=== PATIENT | male | born 1955 | race Caucasian/White ===

== ENCOUNTER → 2017-10-04 11:03 | Outpatient (CLI) | payer MEDICAID, SELFPAY ==
--- NOTE | 2017-10-04 11:13 | XR_ITS ---
XR shoulder RT min 2V HISTORY: ITS.REASON: ACUTE RT SHOULDER PAIN ORDERING PHYSICIAN: Sathish Hassan MD PATIENT AGE: 62 years COMPARISON: 02/26/2014 FINDINGS: No fracture or dislocation. No lytic or blastic change. There is normal mineralization. The joint spaces are well-preserved. No significant degenerative/arthritic changes. No erosive changes evident. IMPRESSION: Negative, no acute finding
--- NOTE | 2017-10-04 11:13 | XR_ITS ---
XR wrist LT min 3V HISTORY pain and immobility ITS.REASON: LT WRIST PAIN ORDERING PHYSICIAN: Sathish Hassan MD PATIENT AGE: 62 years COMPARISON: None FINDINGS: There are mild osteoarthritic changes of the radiocarpal joint and distal radial ulnar joint as well as the first metacarpal carpal joint.. There is mild prominence of the scapholunate space which may be seen with scapholunate ligamentous injury. Mild hypertrophic changes involving and stress SPECT of the distal radius. No fracture or dislocation. No lytic or blastic change. IMPRESSION: 1. Mild osteoarthritic change. 2. Possible scapholunate ligament injury with mild prominence of the scapholunate space. This may be confirmed with MRI clinically warranted.
== END ==
PROVIDERS: PCP Family Medicine; Visit Provider Family Medicine
DX: M25.511 Pain in right shoulder (principal); M25.532 Pain in left wrist
CPT/HCPCS: 73030; 73110

== ENCOUNTER → 2017-11-19 10:46 | Outpatient (CLI) | payer MEDICAID, SELFPAY | PROVIDERS: Family Provider Family Medicine; PCP Family Medicine; Visit Provider Family Medicine | DX: M25.532 Pain in left wrist (principal) ==

== ENCOUNTER → 2017-11-27 09:57 | Outpatient (POV) | payer MEDICAID, SELFPAY ==
[2017-11-27 10:10] VITALS: BP 174/99; PULSE 94; RESP 18; O2SAT 98
--- NOTE | 2017-11-27 12:59 | HMH.PMCON ---
Assessment and Plan (1) Degenerative disc disease, lumbar Current visit: Yes Status: Chronic Category: Medical Code(s): M51.36 - Other intervertebral disc degeneration, lumbar region (2) Lumbar radiculopathy Current visit: Yes Status: Chronic Category: Medical Code(s): M54.16 - Radiculopathy, lumbar region (3) Postlaminectomy syndrome Current visit: Yes Status: Chronic Category: Medical Code(s): M96.1 - Postlaminectomy syndrome, not elsewhere classified - Assessment and plan all Dx Assessment and Plan for all problems:: We will schedule L4-L5 lumbar epidural steroid injection for the patient. After this we will order him physical therapy. We will refill the patient's tramadol 50 mg 1 p.o. 4 times daily. We will give him 1 refill. Patient's CODY #[id number] reviewed and appropriate. We will drug screen the patient at his next follow-up. Patient's tried and failed anti-inflammatories, medications, physical therapy in the past. I will follow-up with this patient after his injection. Patient is not on any anticoagulation therapy. This note was dictated using voice recognition software and may contain errors or omissions HPI - Data of Consult Consult date: 11/27/17 Requesting Physician: Keesha Key APRN Primary Care Provider: Sathish Hassan MD Family Provider: Sathish Hassan MD - Consult Narrative Reason for consult: chronic low back History of present illness: Mr. Velásquez is a 62 year old male who who presents today for consultation in regards to his low back pain. Patient had spinal fusion back in 2002. Patient states his current pain is 3 out of 10. Patient states that when he does too much it does elevate. Patient is currently being medically managed with tramadol and doing well with it. Patient states his primary care can no longer take this medication over. Patient is here to discuss injective therapy and the continuation of his tramadol. Patient would also like to talk about physical therapy. Patient has done this in the past however he has not done it recently. Patient is interested in getting involved in physical therapy in conjunction with epidural injections. Patient states his pain is mainly in his low back and goes down both legs worse on the right side. Patient does have an MRI showing pathology in the lower lumbar spine. CC: Keesha Key APRN [facility] History I have reviewed the patient's past medical history: Yes Other Medical History: Reports: Arthritis Other Surgeries: Yes: Appendectomy - *Social History Alcohol Intake: never Occupational Status: retired - Psychiatric History Expresses thoughts of harming self/others: None Suicide Plan Description: No Plan *Family Hx:: Adopted Review of Systems - Review of Systems ROS General: no recent weight change, no fever, no sleep disturbances Respiratory: no cough, no shortness of air, no recurring pulmonary infections Cardiovascular/Peripheral Vascular: No chest pain, No palpitations, no edema, no shortness of breath. Gastrointestinal: no incontinence, normal bowel movements reported Genitourinary: no incontinence Musculoskeletal: Low back pain, leg pain Psychiatric: normal mood/ affect, Neurological: [denies weakness in extremities], [denies balance issues] Meds Home Medications Medication Instructions Recorded Confirmed Type Duloxetine HCl 120 mg PO DAILY 11/27/17 11/27/17 History Fluticasone/Vilanterol [Breo 1 each IH DAILY 11/27/17 11/27/17 History Ellipta 100-25 Mcg INH] Tramadol HCl [Ultram Take Home 50 mg PO QID 11/27/17 11/27/17 History Pack 50mg (10)] Allergies Allergy/AdvReac Type Severity Reaction Status Date / Time NKDA - NO KNOWN DRUG Allergy Unknown Uncoded 06/05/17 15:24 ALLERGIES Objective Vital signs: Pulse Resp BP Pulse Ox 94 H 18 174/99 98 11/27/17 10:10 11/27/17 10:10 11/27/17 10:10 11/27/17 10:10 Narrative:
--- NOTE | 2017-11-27 13:05 | P.CONS_ITS ---
Assessment and Plan (1) Degenerative disc disease, lumbar Current visit: Yes Status: Chronic Category: Medical Code(s): M51.36 - Other intervertebral disc degeneration, lumbar region (2) Lumbar radiculopathy Current visit: Yes Status: Chronic Category: Medical Code(s): M54.16 - Radiculopathy, lumbar region (3) Postlaminectomy syndrome Current visit: Yes Status: Chronic Category: Medical Code(s): M96.1 - Postlaminectomy syndrome, not elsewhere classified - Assessment and plan all Dx Assessment and Plan for all problems:: We will schedule L4-L5 lumbar epidural steroid injection for the patient. After this we will order him physical therapy. We will refill the patient's tramadol 50 mg 1 p.o. 4 times daily. We will give him 1 refill. Patient's CODY #[id number] reviewed and appropriate. We will drug screen the patient at his next follow-up. Patient's tried and failed anti-inflammatories, medications , physical therapy in the past. I will follow-up with this patient after his injection. Patient is not on any anticoagulation therapy. This note was dictated using voice recognition software and may contain errors or omissions HPI - Data of Consult Consult date: 11/27/17 Requesting Physician: Keesha Key APRN Primary Care Provider: Sathish Hassan MD Family Provider: Sathish Hassan MD - Consult Narrative Reason for consult: chronic low back History of present illness: Mr. Velásquez is a 62 year old male who who presents today for consultation in regards to his low back pain. Patient had spinal fusion back in 2002. Patient states his current pain is 3 out of 10. Patient states that when he does too much it does elevate. Patient is currently being medically managed with tramadol and doing well with it. Patient states his primary care can no longer take this medication over. Patient is here to discuss injective therapy and the continuation of his tramadol. Patient would also like to talk about physical therapy. Patient has done this in the past however he has not done it recently. Patient is interested in getting involved in physical therapy in conjunction with epidural injections. Patient states his pain is mainly in his low back and goes down both legs worse on the right side. Patient does have an MRI showing pathology in the lower lumbar spine. CC: Keesha Key APRN [facility] History I have reviewed the patient's past medical history: Yes Other Medical History: Reports: Arthritis Other Surgeries: Yes: Appendectomy - *Social History Alcohol Intake: never Occupational Status: retired - Psychiatric History Expresses thoughts of harming self/others: None Suicide Plan Description: No Plan *Family Hx:: Adopted Review of Systems - Review of Systems ROS General: no recent weight change, no fever, no sleep disturbances Respiratory: no cough, no shortness of air, no recurring pulmonary infections Cardiovascular/Peripheral Vascular: No chest pain, No palpitations, no edema, no shortness of breath. Gastrointestinal: no incontinence, normal bowel movements reported Genitourinary: no incontinence Musculoskeletal: Low back pain, leg pain Psychiatric: normal mood/ affect, Neurological: [denies weakness in extremities], [denies balance issues] Meds Home Medications Medication Instructions Recorded Confirmed Type Duloxetine HCl 120 mg PO DAILY 11/27/17 11/27/17 History Fluticasone/Vilanterol [Breo 1 each IH DAILY 11/27/17 11/27/17 History
== END ==
PROVIDERS: Family Provider Family Medicine; PCP Family Medicine; Visit Provider Clinical Nurse Specialist Family Health
DX: M51.36 Other intervertebral disc degeneration, lumbar region (principal); M54.16 Radiculopathy, lumbar region; M96.1 Postlaminectomy syndrome, not elsewhere classified
CPT/HCPCS: 99202

== ENCOUNTER → 2017-11-27 12:46 | Outpatient (CLI) | payer MEDICAID, SELFPAY ==
--- NOTE | 2017-11-27 12:48 | MR_ITS ---
MR wrist LT wo con HISTORY left wrist pain, scapholunate disassociation ITS.REASON: LEFT WRIST PAIN, DIASTASIS OF SCAPHOLUNATE JOINT, LEFT, INIT ORDERING PHYSICIAN: Sathish Hassan MD PATIENT AGE: 62 years Comparison: None TECHNIQUE: Multiplanar multiecho sequences are performed without contrast. There is moderate degree of patient motion artifact which does decrease the sensitivity of the exam. FINDINGS: There is diffuse motion artifact which obscures fine detail despite repeating multiple sequences. Scapholunate ligament would not not reliably be seen with this degree of motion. Therefore, cannot confirm the absence or presence of ligamentous tear. There is widening of the scapholunate space which would suggest scapholunate ligament instability/tear. There are subarticular cystic changes at the distal aspect of the radius at the radial ulnar joint subchondral cystic changes are present also at the proximal aspect of the lunate and the scaphoid. No acute fracture is apparent. No obvious soft tissue mass IMPRESSION: 1. There is widening of the scapholunate space. The scapholunate ligament is not demonstrated however it is uncertain whether this is due to a tear or due to the motion artifact. 2. There are osteoarthritic changes at the radiocarpal joint with subarticular cystic changes at the distal radius, proximal scaphoid, and proximal lunate
== END ==
PROVIDERS: Family Provider Family Medicine; PCP Family Medicine; Visit Provider Family Medicine
DX: S63.095A Other dislocation of left wrist and hand, initial encounter (principal); M25.532 Pain in left wrist
CPT/HCPCS: 73221

== ENCOUNTER → 2018-01-07 10:32 | Outpatient (POV) | payer MEDICAID, SELFPAY ==
[2018-01-07 10:50] VITALS: BP 157/101; PULSE 101; RESP 18; O2SAT 98; BMI 32.5
--- NOTE | 2018-01-07 10:51 | HMH.PAINSOAP ---
[facility] Pain Management SOAP Note Subjective:: Patient is a pleasant 63-year-old white male who presents today for follow-up after most recent lumbar epidural steroid injection. Patient states that he had complete relief after his injection he states that he does have a little bit of increased pain now with activity. Patient has had a previous spinal fusion back in 2002. Patient states that he does have some radicular symptoms in both legs however his right is greater. Patient had relief of this with the injection as well. Patient would like to complete the series of 3 epidural steroid injections and I believe that that would be beneficial. Patient's tried physical therapy along with stretching therapies. Patient utilizes anti-inflammatories to help alleviate some of his pain. ROS General: no recent weight change, no fever, no sleep disturbances Respiratory: no cough, no shortness of air, no recurring pulmonary infections Cardiovascular/Peripheral Vascular: No chest pain, No palpitations, no edema, no shortness of breath. Gastrointestinal: no incontinence, normal bowel movements reported Genitourinary: no incontinence Musculoskeletal: Back pain Psychiatric: normal mood/ affect Neurological: [denies weakness in extremities], [denies balance issues] Objective:: Physical Exam General: Alert and oriented x3, no acute distress, pleasant and cooperative, [on room air] Lungs: Resps E/U, Symmetrical chest expansion Eyes: PERRL Musculoskeletal: Flexion and extension of lumbar spine somewhat guarded secondary to pain, deep tendon reflexes normal, strength in upper and lower extremities [5/5], [abnormal gait noted] patient has a positive straight leg raise test bilaterally at 30?. Neurological: speech clear, junior project coordinator equal, no gross sensory deficits Assessment:: Degenerative disc disease of the lumbar spine with lumbar radiculopathy symptoms and postlaminectomy syndrome of the lumbar spine Plan:: We will schedule another L4 L5 lumbar epidural steroid injection given the efficacy of this last one. I will follow-up with the patient after his injection. Patient is not on any anticoagulation therapy. This note was dictated using voice recognition software and may contain errors or omissions
--- NOTE | 2018-01-07 10:54 | P.CONS_ITS ---
[facility] Pain Management SOAP Note Subjective:: Patient is a pleasant 63-year-old white male who presents today for follow-up after most recent lumbar epidural steroid injection. Patient states that he had complete relief after his injection he states that he does have a little bit of increased pain now with activity. Patient has had a previous spinal fusion back in 2002. Patient states that he does have some radicular symptoms in both legs however his right is greater. Patient had relief of this with the injection as well. Patient would like to complete the series of 3 epidural steroid injections and I believe that that would be beneficial. Patient's tried physical therapy along with stretching therapies. Patient utilizes anti- inflammatories to help alleviate some of his pain. ROS General: no recent weight change, no fever, no sleep disturbances Respiratory: no cough, no shortness of air, no recurring pulmonary infections Cardiovascular/Peripheral Vascular: No chest pain, No palpitations, no edema, no shortness of breath. Gastrointestinal: no incontinence, normal bowel movements reported Genitourinary: no incontinence Musculoskeletal: Back pain Psychiatric: normal mood/ affect Neurological: [denies weakness in extremities], [denies balance issues] Objective:: Physical Exam General: Alert and oriented x3, no acute distress, pleasant and cooperative, [ on room air] Lungs: Resps E/U, Symmetrical chest expansion Eyes: PERRL Musculoskeletal: Flexion and extension of lumbar spine somewhat guarded secondary to pain, deep tendon reflexes normal, strength in upper and lower extremities [5/5], [abnormal gait noted] patient has a positive straight leg raise test bilaterally at 30?. Neurological: speech clear, flat folding machine operator equal, no gross sensory deficits Assessment:: Degenerative disc disease of the lumbar spine with lumbar radiculopathy symptoms and postlaminectomy syndrome of the lumbar spine Plan:: We will schedule another L4 L5 lumbar epidural steroid injection given the efficacy of this last one. I will follow-up with the patient after his injection. Patient is not on any anticoagulation therapy. This note was dictated using voice recognition software and may contain errors or omissions
== END ==
PROVIDERS: Family Provider Family Medicine; PCP Family Medicine; Visit Provider Clinical Nurse Specialist Family Health
DX: M54.16 Radiculopathy, lumbar region (principal)
CPT/HCPCS: 99212

== ENCOUNTER → 2018-03-04 15:08 | Outpatient (POV) | payer MEDICARE, SELFPAY ==
--- NOTE | 2018-03-04 15:52 | HMH.PAINSOAP ---
[facility] Pain Management SOAP Note Subjective:: Patient is a pleasant 63-year-old white male who presents today for follow-up after his second lumbar epidural steroid injection. Patient has had 1 injection with very good relief. Patient states he did not have as much relief on his second injection. Patient did however does have a lot of dental work done where he received 12 Percocet. Patient had several teeth pulled and dentures made. Patient's currently on tramadol 50 mg 1 p.o. 4 times daily. Patient's CODY #[id number]. Patient and I discussed adding gabapentin due to the increased leg pain. Patient is having low back pain and bilateral leg pain. he rates his pain a 5 out of 10 today ROS General: no recent weight change, no fever, no sleep disturbances Respiratory: no cough, no shortness of air, no recurring pulmonary infections Cardiovascular/Peripheral Vascular: No chest pain, No palpitations, no edema, no shortness of breath. Gastrointestinal: no incontinence, normal bowel movements reported Genitourinary: no incontinence Musculoskeletal: Back pain Psychiatric: normal mood/ affect Neurological: [denies weakness in extremities], [denies balance issues] Objective:: Physical Exam General: Alert and oriented x3, no acute distress, pleasant and cooperative, [on room air] Lungs: Resps E/U, Symmetrical chest expansion, Eyes: PERRL Musculoskeletal: Flexion and extension of lumbar spine somewhat guarded secondary to pain, deep tendon reflexes normal, strength in upper and lower extremities [5/5], slightly antalgic gait noted, straight leg raise test bilaterally at 30? Neurological: speech clear, pastry baker equal, no gross sensory deficits Assessment:: degenerative disc disease lumbar spine with lumbar radiculopathy Plan:: We will schedule a third L4-L5 lumbar epidural steroid injection for the patient. We will also add gabapentin 100 mg at bedtime. Patient is to continue his tramadol 50 mg [address] p[address] Peguero is reviewed this chart and agrees with this plan of care. I will follow-up with the patient after his injection. This note was dictated using voice recognition software and may contain errors or omissions
--- NOTE | 2018-03-04 15:55 | P.CONS_ITS ---
[facility] Pain Management SOAP Note Subjective:: Patient is a pleasant 63-year-old white male who presents today for follow-up after his second lumbar epidural steroid injection. Patient has had 1 injection with very good relief. Patient states he did not have as much relief on his second injection. Patient did however does have a lot of dental work done where he received 12 Percocet. Patient had several teeth pulled and dentures made. Patient's currently on tramadol 50 mg 1 p.o. 4 times daily. Patient's CODY #[id number]. Patient and I discussed adding gabapentin due to the increased leg pain. Patient is having low back pain and bilateral leg pain. he rates his pain a 5 out of 10 today ROS General: no recent weight change, no fever, no sleep disturbances Respiratory: no cough, no shortness of air, no recurring pulmonary infections Cardiovascular/Peripheral Vascular: No chest pain, No palpitations, no edema, no shortness of breath. Gastrointestinal: no incontinence, normal bowel movements reported Genitourinary: no incontinence Musculoskeletal: Back pain Psychiatric: normal mood/ affect Neurological: [denies weakness in extremities], [denies balance issues] Objective:: Physical Exam General: Alert and oriented x3, no acute distress, pleasant and cooperative, [on room air] Lungs: Resps E/U, Symmetrical chest expansion, Eyes: PERRL Musculoskeletal: Flexion and extension of lumbar spine somewhat guarded secondary to pain, deep tendon reflexes normal, strength in upper and lower extremities [5/5], slightly antalgic gait noted, straight leg raise test bilaterally at 30? Neurological: speech clear, director university equal, no gross sensory deficits Assessment:: degenerative disc disease lumbar spine with lumbar radiculopathy Plan:: We will schedule a third L4-L5 lumbar epidural steroid injection for the patient. We will also add gabapentin 100 mg at bedtime. Patient is to continue his tramadol 50 mg [address] Peguero is reviewed this chart and agrees with this plan of care. I will follow-up with the patient after his injection. This note was dictated using voice recognition software and may contain errors or omissions
== END ==
PROVIDERS: Family Provider Family Medicine; PCP Family Medicine; Visit Provider Clinical Nurse Specialist Family Health
DX: M51.16 Intervertebral disc disorders with radiculopathy, lumbar region (principal)
CPT/HCPCS: 99213

== ENCOUNTER → 2018-04-23 14:51 | Outpatient (POV) | payer MEDICARE, MEDICAID, SELFPAY ==
[2018-04-23 15:02] VITALS: BP 151/97; PULSE 103; RESP 18; O2SAT 98; BMI 31.9
--- NOTE | 2018-04-23 15:19 | HMH.PAINSOAP ---
[facility] Pain Management SOAP Note Subjective:: Patient is a pleasant 63-year-old white male who presents today for follow-up. Patient following up after his last lumbar epidural steroid injection. Patient did not have as much relief with this injection. Patient states that his back pain is radiating all into his right leg. Patient and I discussed transforaminal injections and he is interested in pursuing this. Patient is currently on tramadol 2 tabs 50 mg twice daily. Patient states that sometimes he would like to have one more. Patient is trying to stay active he is still doing a home stretching regimen. Patient is not on any anticoagulation therapy. Patient is on anti-inflammatories. ROS General: no recent weight change, no fever, no sleep disturbances Respiratory: no cough, no shortness of air, no recurring pulmonary infections Cardiovascular/Peripheral Vascular: No chest pain, No palpitations, no edema, no shortness of breath. Gastrointestinal: no incontinence, normal bowel movements reported Genitourinary: no incontinence Musculoskeletal: Back pain, right leg pain Psychiatric: normal mood/ affect Neurological: [denies weakness in extremities], [denies balance issues] Objective:: Physical Exam General: Alert and oriented x3, no acute distress, pleasant and cooperative, [on room air] Lungs: Resps E/U, Symmetrical chest expansion, Eyes: PERRL Musculoskeletal: Flexion and extension of lumbar spine somewhat guarded secondary to pain, deep tendon reflexes normal, strength in upper and lower extremities [5/5], [abnormal gait noted] Neurological: speech clear, radar engineer equal, no gross sensory deficits Assessment:: Degenerative disc disease of the lumbar spine with lumbar radiculopathy Plan:: We will schedule a L4-L5 right transforaminal epidural steroid injection for the patient. We will increase his tramadol to 50 mg 2 tabs p.o. 3 times daily. We will follow-up with him after his injection. This note was dictated using voice recognition software and may contain errors or omissions
--- NOTE | 2018-04-23 15:22 | P.CONS_ITS ---
[facility] Pain Management SOAP Note Subjective:: Patient is a pleasant 63-year-old white male who presents today for follow-up. Patient following up after his last lumbar epidural steroid injection. Patient did not have as much relief with this injection. Patient states that his back pain is radiating all into his right leg. Patient and I discussed transforaminal injections and he is interested in pursuing this. Patient is currently on tramadol 2 tabs 50 mg twice daily. Patient states that sometimes he would like to have one more. Patient is trying to stay active he is still doing a home stretching regimen. Patient is not on any anticoagulation therapy. Patient is on anti-inflammatories. ROS General: no recent weight change, no fever, no sleep disturbances Respiratory: no cough, no shortness of air, no recurring pulmonary infections Cardiovascular/Peripheral Vascular: No chest pain, No palpitations, no edema, no shortness of breath. Gastrointestinal: no incontinence, normal bowel movements reported Genitourinary: no incontinence Musculoskeletal: Back pain, right leg pain Psychiatric: normal mood/ affect Neurological: [denies weakness in extremities], [denies balance issues] Objective:: Physical Exam General: Alert and oriented x3, no acute distress, pleasant and cooperative, [on room air] Lungs: Resps E/U, Symmetrical chest expansion, Eyes: PERRL Musculoskeletal: Flexion and extension of lumbar spine somewhat guarded secondary to pain, deep tendon reflexes normal, strength in upper and lower extremities [5/5], [abnormal gait noted] Neurological: speech clear, career development specialist equal, no gross sensory deficits Assessment:: Degenerative disc disease of the lumbar spine with lumbar radiculopathy Plan:: We will schedule a L4-L5 right transforaminal epidural steroid injection for the patient. We will increase his tramadol to 50 mg 2 tabs p.o. 3 times daily. We will follow-up with him after his injection. This note was dictated using voice recognition software and may contain errors or omissions
== END ==
PROVIDERS: PCP Registered Nurse; Visit Provider Clinical Nurse Specialist Family Health
DX: M51.16 Intervertebral disc disorders with radiculopathy, lumbar region (principal)
CPT/HCPCS: 99213

== ENCOUNTER → 2018-06-17 14:08 | Outpatient (POV) | payer MEDICARE, MEDICAID, SELFPAY ==
--- NOTE | 2018-06-17 14:29 | HMH.PAINSOAP ---
[facility] Pain Management SOAP Note Subjective:: Is a pleasant 63-year-old white male who resents today for follow-up after transforaminal epidural steroid injection. Patient states that he is doing extremely well rating his pain a 2 out of 10 today. Patient is doing well on his tramadol as well he is not in need of refills today. ROS General: no recent weight change, no fever, no sleep disturbances Respiratory: no cough, no shortness of air, no recurring pulmonary infections Cardiovascular/Peripheral Vascular: No chest pain, No palpitations, no edema, no shortness of breath. Gastrointestinal: no incontinence, normal bowel movements reported Genitourinary: no incontinence Musculoskeletal: Back pain, leg pain Psychiatric: normal mood/ affect Neurological: [denies weakness in extremities], [denies balance issues] Objective:: Physical Exam General: Alert and oriented x3, no acute distress, pleasant and cooperative, [on room air] Lungs: Resps E/U, Symmetrical chest expansion, Eyes: PERRL Musculoskeletal: Flexion and extension of lumbar spine somewhat guarded secondary to pain, deep tendon reflexes normal, strength in upper and lower extremities [5/5], slightly antalgic gait noted Neurological: speech clear, slip cover seamstress equal, no gross sensory deficits Assessment:: Degenerative disc disease lumbar spine with lumbar radiculopathy Plan:: We will follow-up with the patient in 2 months and reassess his symptoms at that time. Patient is otherwise doing well at this time. Patient's been instructed to call the office if he needs anything prior to his next visit. This note was dictated using voice recognition software and may contain errors or omissions
[2018-06-17 14:35] VITALS: BP 141/86; PULSE 93; RESP 18; O2SAT 98; BMI 32.6
== END ==
PROVIDERS: PCP Family Medicine; Visit Provider Clinical Nurse Specialist Family Health
DX: M51.16 Intervertebral disc disorders with radiculopathy, lumbar region (principal)
CPT/HCPCS: 99213

== ENCOUNTER → 2018-10-10 10:01 | Outpatient (CLI) | payer MEDICARE, MEDICAID, SELFPAY ==
--- NOTE | 2018-10-10 10:11 | XR_ITS ---
XR wrist LT min 3V HISTORY ITS.REASON: left side wrist pain ORDERING PHYSICIAN: Georgina Calvin MD PATIENT AGE: 63 years Comparison: 10/04/2017 FINDINGS: There are mild osteoarthritic changes of the first metacarpal carpal joint and the radiocarpal joint as well as the distal radioulnar joint. There is mild widening of the scapholunate space as previously described. Minimal subarticular cystic changes are present involving the distal radius medially No fracture or dislocation evident. No significant change from the previous exam. IMPRESSION: No change mild osteoarthritic changes of the wrist with mild prominence of the scapholunate space
== END ==
PROVIDERS: PCP Family Medicine; Visit Provider Orthopaedic Surgery
DX: M25.532 Pain in left wrist (principal)
CPT/HCPCS: 73110

== ENCOUNTER → 2018-10-14 14:03 | Outpatient (POV) | payer MEDICARE, MEDICAID, SELFPAY ==
[2018-10-14 14:30] VITALS: BP 158/82; PULSE 100; RESP 18; O2SAT 98; BMI 31.0
--- NOTE | 2018-10-15 08:28 | HMH.PAINSOAP ---
[facility] Pain Management SOAP Note Subjective:: Is a pleasant 63-year-old white male who presents today for follow-up. Patient is doing well rating his pain a 2 out of 10. He still taking tramadol 50 mg 2 tabs 3 times daily. He denies side effects. Overall doing well. Patient would like to just continue to follow-up as needed. ROS General: no recent weight change, no fever, no sleep disturbances Respiratory: no cough, no shortness of air, no recurring pulmonary infections Cardiovascular/Peripheral Vascular: No chest pain, No palpitations, no edema, no shortness of breath. Gastrointestinal: no incontinence, normal bowel movements reported Genitourinary: no incontinence Musculoskeletal: Back pain, leg pain Psychiatric: normal mood/ affect Neurological: [denies weakness in extremities], [denies balance issues] Objective:: Physical Exam General: Alert and oriented x3, no acute distress, pleasant and cooperative, [on room air] Lungs: Resps E/U, Symmetrical chest expansion, Eyes: PERRL Musculoskeletal: Flexion and extension of lumbar spine somewhat guarded secondary to pain, deep tendon reflexes normal, strength in upper and lower extremities [5/5], [abnormal gait noted] Neurological: speech clear, color television console monitor equal, no gross sensory deficits Assessment:: Degenerative disc disease lumbar spine with lumbar radiculopathy Plan:: Follow-up with the patient to 3 months reassess his symptoms at that time. He has been instructed to call the office if he has any issues prior to his next appointment. Dr. Peguero has reviewed this note and agrees with this plan of care. This note was dictated using voice recognition software and may contain errors or omissions
== END ==
PROVIDERS: PCP Family Medicine; Visit Provider Clinical Nurse Specialist Family Health
DX: M51.16 Intervertebral disc disorders with radiculopathy, lumbar region (principal)
CPT/HCPCS: 99212

== ENCOUNTER 2018-10-14 14:08 | Outpatient (RCR) | payer MEDICARE, MEDICAID, SELFPAY | END 2018-10-14 14:10 | disposition home or self-care (01) | LOC: OT 14:08 | PROVIDERS: Visit Provider Orthopaedic Surgery | DX: M25.532 Pain in left wrist (principal) | CPT/HCPCS: 97763 ==

== ENCOUNTER → 2019-01-13 13:48 | Outpatient (POV) | payer MEDICARE, MEDICAID, SELFPAY ==
[2019-01-13 13:54] VITALS: BP 146/97; PULSE 87; RESP 20; O2SAT 96; BMI 30.4
--- NOTE | 2019-01-13 14:04 | P.CONS_ITS ---
[facility] Pain Management SOAP Note Subjective:: Patient is a pleasant 64-year-old white male who presents today for follow-up. Patient is currently on tramadol 50 mg 1 p.o. 6 times a day and Lyrica 75 mill grams 1 p.o. twice daily. Patient is having right SI joint pain. Patient has had that for quite some time. He had a right SI joint injection about 6 months and has done extremely well with that he rates his pain today a 7 out of 10. He denies side effects his tramadol or his Lyrica. [facility] #[id number] reviewed and appropriate. We had a discussion today in regards to decreasing his tramadol increasing his Lyrica. I believe it would be beneficial. ROS General: no recent weight change, no fever, no sleep disturbances Respiratory: no cough, no shortness of air, no recurring pulmonary infections Cardiovascular/Peripheral Vascular: No chest pain, No palpitations, no edema, no shortness of breath. Gastrointestinal: no incontinence, normal bowel movements reported Genitourinary: no incontinence Musculoskeletal: Back pain, right SI joint pain Psychiatric: normal mood/ affect Neurological: [denies weakness in extremities], [denies balance issues] Objective:: Physical Exam General: Alert and oriented x3, no acute distress, pleasant and cooperative, [on room air] Lungs: Resps E/U, Symmetrical chest expansion, Eyes: PERRL Musculoskeletal: Flexion and extension of lumbar spine somewhat guarded secondary to pain, deep tendon reflexes normal, strength in upper and lower extremities [5/5], slightly antalgic gait noted, positive SI joint compression test positive Raquel test positive Wero's test on the right SI joint. Neurological: speech clear, certified nurse practitioner equal, no gross sensory deficits Assessment:: Degenerative disc disease lumbar spine with lumbar radiculopathy along with sacroiliitis Plan:: We will decrease his tramadol to 50 mg 1 tab p.o. 4 times daily and increase his Lyrica to 150 mg 1 p.o. twice daily. We will also schedule him for right SI joint injection. He is continuing anti-inflammatories and a home stretching program. He is been instructed to call the office if he has any issues prior to his next appointment. Dr. Peguero has reviewed this note and agrees with this plan of care. This note was dictated using voice recognition software and may contain errors or omissions
== END ==
PROVIDERS: PCP Family Medicine; Visit Provider Clinical Nurse Specialist Family Health
DX: M51.16 Intervertebral disc disorders with radiculopathy, lumbar region (principal); M46.1 Sacroiliitis, not elsewhere classified
CPT/HCPCS: 99212

== ENCOUNTER → 2019-03-18 09:28 | Outpatient (POV) | payer MEDICARE, MEDICAID, SELFPAY ==
[2019-03-18 09:52] VITALS: BP 133/88; PULSE 89; RESP 18; O2SAT 98; BMI 31.9
--- NOTE | 2019-03-18 10:08 | P.CONS_ITS ---
[facility] Pain Management SOAP Note Subjective:: Patient is a pleasant 64-year-old white male who presents today for follow-up after right SI joint injection. Patient did not get as much relief as he has in the past. However recently he has had several long episodes of extreme back pain with radiation into bilateral legs down into his toes. Patient has bilateral weakness in his legs as well. Patient does not have any updated imaging I do believe it would be beneficial. Patient has had surgery in the past. He rates his pain today is except 10. He is also on tramadol 50 mg 2 tabs twice a day. We will increase this to 2 tabs 3 times a day. He is also on Lyrica 150 mg 1 p.o. twice daily. ROS General: no recent weight change, no fever, no sleep disturbances Respiratory: no cough, no shortness of air, no recurring pulmonary infections Cardiovascular/Peripheral Vascular: No chest pain, No palpitations, no edema, no shortness of breath. Gastrointestinal: no incontinence, normal bowel movements reported Genitourinary: no incontinence Musculoskeletal: Back pain, leg pain Psychiatric: normal mood/ affect, Neurological: Weakness in bilateral lower extremities, [denies balance issues] Objective:: Physical Exam General: Alert and oriented x3, no acute distress, pleasant and cooperative, [on room air] Lungs: Resps E/U, Symmetrical chest expansion, Eyes: PERRL Musculoskeletal: Flexion and extension of lumbar spine somewhat guarded secondary to pain, deep tendon reflexes normal, strength in upper and lower extremities [5/5], [abnormal gait noted] Neurological: speech clear, copper plate printer equal, no gross sensory deficits Assessment:: Degenerative disc disease lumbar spine with lumbar radiculopathy, postlaminectomy syndrome Plan:: We will schedule lumbar MRI for the patient I will follow-up with him after his MRI and reassess his symptoms at that time. Patient's been instructed to call the office if he has any issues prior to his next appointment. We will continue his tramadol and Lyrica. Dr. Peguero has reviewed this note and agrees with this plan of care. This note was dictated using voice recognition software and may contain errors or omissions [facility] History I have reviewed the patient's past medical history: Yes Medical History: Denies:: Cancer, Diabetes Mellitus Type 1, Diabetes Mellitus Type 2, MRSA, Seizures *Have you ever received a pneumonia vaccine?: Yes *Have you received a flu vaccine this season?: Yes Other Medical History: Reports: Arthritis Laterality Cases: Bilateral: Tonsillectomy Other Surgeries: Yes: Appendectomy Amputation: No Fractures: No - *Social History Smoking Status: Current every day smoker Tobacco Type: cigarettes # Packs/Day (cigarettes): 1 #Yrs smoked (if former smoker): 40 Alcohol Intake: never *Occupational Status:: employed Housing: house *Travel in the last 8 weeks: None Family Hx:: Adopted
== END ==
PROVIDERS: PCP Family Medicine; Visit Provider Clinical Nurse Specialist Family Health
DX: M51.16 Intervertebral disc disorders with radiculopathy, lumbar region (principal); M96.1 Postlaminectomy syndrome, not elsewhere classified
CPT/HCPCS: 99212

== ENCOUNTER → 2019-03-31 07:52 | Outpatient (CLI) | payer MEDICARE, MEDICAID, SELFPAY ==
--- NOTE | 2019-03-31 07:59 | MR_ITS ---
PROCEDURE: MR LUMBAR SPINE WO CON CLINICAL INDICATION: BACK PAIN Low back pain worse on the left bilateral leg pain numbness and tingling and weakness COMPARISON: No exams were available for comparison TECHNIQUE: Standard multiplanar multiecho sequences are performed without contrast. 3-D MIP and myelographic images are also rendered and reviewed FINDINGS: The spinal cord ends at the L1 level. There is mild lumbar scoliosis with no abnormal subluxation. Multilevel lumbar spondylosis is noted as detailed below. T11-T12: Degenerative disc disease with endplate osteophytes and mild left lateral recess and foraminal narrowing from small disc osteophyte complex. T12-L1: Degenerate disc disease with mild concentric bulging disc and mild facet and ligamentum hypertrophy with mild bilateral foraminal narrowing. L1-L2: Degenerate disc disease L2-L3: Degenerate disc disease with bulging disc along with facet and ligamentum hypertrophy. Type 1 endplate changes. Bilateral lateral recess and foraminal narrowing. There is a Schmorl's node along the inferior endplate of L2. The there mild narrowing of the canal L3-L4: Degenerate disc disease with bulging disc along with facet ligamentum hypertrophy with moderate to severe right-sided foraminal narrowing and moderate left foraminal narrowing. Type 1 endplate changes are present and there is transverse narrowing of the canal at 10 mm. L4-5: Degenerative disc disease with bulging disc along with facet and ligamentum hypertrophy with moderate right foraminal narrowing and mild to moderate left foraminal narrowing. L5-S1: Postsurgical changes with artifact from hardware at the disc space with mild facet ligamentum hypertrophy. No extruded herniated disc evident. IMPRESSION: Multilevel lumbar spondylosis with degenerative disc disease bulging disc, facet ligamentum hypertrophy with lateral recess and foraminal narrowing and canal narrowing along with endplate changes. Please see above for detailed description at each level Postsurgical changes at L5-S1 No extruded herniated disc apparent Dictated by: Luigi Dugan MD 04/01/2019 06:16 Electronically signed by Luigi Duagn MD in [place] 04/01/2019 06:16
--- NOTE | 2019-03-31 11:00 | US_ITS ---
PROCEDURE: US TESTICULAR CLINICAL INDICATION: SCROTAL SWELLING COMPARISON: No exams were available for comparison FINDINGS: There is a large right hydrocele which displaces the right testicle inferiorly. There is poor visualization of the right testicle due to the large hydrocele. Right testicle measures 4 x 2.6 cm. No obvious mass. Flow was not able to be detected but may be due to the technical factors. The left testicle is 5 x 3 x 3 cm. No mass is evident. Blood flow is present to the left testicle. There are some small cystic areas along the epididymal tail on the left suggesting small epididymal cyst. There is a small cyst within the left testicle at 5 mm. IMPRESSION: Large right hydrocele displaced in the right testicle. Please see above for detail Dictated by: Luigi Dugan MD 03/31/2019 17:58 Electronically signed by Luigi Dugan MD in [place] 03/31/2019 17:58
== END ==
PROVIDERS: PCP Family Medicine; Visit Provider Family Medicine
DX: M54.5 Low back pain (principal); N50.89 Other specified disorders of the male genital organs
CPT/HCPCS: 72148; 76376; 76870

== ENCOUNTER → 2019-07-14 13:57 | Outpatient (POV) | payer MEDICARE, MEDICAID, SELFPAY ==
[2019-07-14 14:37] VITALS: BP 165/95; PULSE 93; RESP 18; O2SAT 99; BMI 33.0
--- NOTE | 2019-07-14 15:50 | P.CONS_ITS ---
[facility] Pain Management SOAP Note Subjective:: Is a pleasant 64-year-old white male who presents today for follow-up. Since his last visit patient had an MRI showing worsening degenerative disc disease, postsurgical changes and ligamentum flavum hypertrophy. Most of the time the patient's pain is when he is standing and walking. Patient is weakness down his bilateral lower extremities and unable to walk for long periods of time. We discussed a mild procedure. He is interested in pursuing this. In order to determine if he is a candidate for this we will set him up for an epidurogram. Patient has had epidurals in the past with some relief however it has not been long lasting. He rates his pain today an 5 out of 10. He is not on any anticoagulation therapy. He is continuing his tramadol and Lyrica. ROS General: no recent weight change, no fever, no sleep disturbances Respiratory: no cough, no shortness of air, no recurring pulmonary infections Cardiovascular/Peripheral Vascular: No chest pain, No palpitations, no edema, no shortness of breath. Gastrointestinal: no new onset incontinence, normal bowel movements reported Genitourinary: no new onset incontinence Musculoskeletal: Back pain, leg pain Psychiatric: normal mood/ affect Neurological: [denies new onset weakness in extremities], [denies new onset balance issues] Objective:: Physical Exam General: Alert and oriented x3, no acute distress, pleasant and cooperative, [on room air] Lungs: Resps E/U, Symmetrical chest expansion, Eyes: PERRL Musculoskeletal: Flexion and extension of lumbar spine somewhat guarded secondary to pain, deep tendon reflexes normal, strength in upper and lower extremities [5/5], [abnormal gait noted] Neurological: speech clear, residential care facility manager equal, no gross sensory deficits Assessment:: Degenerative disc disease lumbar spine with lumbar radiculopathy, spinal stenosis with neurogenic claudication, ligamentum flavum hypertrophy Plan:: We will set the patient up for an epidurogram to see if he is a candidate for a mild procedure. Patient and I had a long discussion in regards to this procedure. I discussed the risks and benefits along with what is involved in the procedure. Patient's been instructed to call the office if he has any is sues prior to his next appointment. We will set him up for a follow-up after his epidurogram. He is not on any anticoagulation therapy and is continuing home stretching and anti-inflammatories. Dr. Peguero has reviewed this note and agrees with this plan of care. This note was dictated using voice recognition software and may contain errors or omissions [facility] History I have reviewed the patient's past medical history: Yes Medical History: Reports:: Asthma Denies:: Cancer, Diabetes Mellitus Type 1, Diabetes Mellitus Type 2, MRSA, Se izures *Have you ever received a pneumonia vaccine?: Yes *Have you received a flu vaccine this season?: Yes Other Medical History: Reports: Arthritis. Denies: Blood Transfusion Reaction Laterality Cases: Right: Arthroscopy Shoulder, Bilateral: Tonsillectomy Other Surgeries: Yes: Appendectomy, Other Amputation: No Fractures: No - *Social History Smoking Status: Current every day smoker Tobacco Type: cigarettes # Packs/Day (cigarettes): 1 #Yrs smoked (if former smoker): 40 Alcohol Intake: never Substance Use Type: marijuana, other *Occupational Status:: other Housing: house *Travel in the last 8 weeks: None Family Hx:: Adopted
--- NOTE | 2019-07-16 13:43 | PC.NURSE ---
refills for tramadol and lyrica called into [facility] in [place] per provider order
== END ==
PROVIDERS: PCP Family Medicine; Visit Provider Clinical Nurse Specialist Family Health
DX: M51.16 Intervertebral disc disorders with radiculopathy, lumbar region (principal); M48.062 Spinal stenosis, lumbar region with neurogenic claudication; M24.28 Disorder of ligament, vertebrae; Z72.0 Tobacco use; J45.909 Unspecified asthma, uncomplicated; F12.90 Cannabis use, unspecified, uncomplicated
CPT/HCPCS: 99212

== ENCOUNTER → 2019-08-05 10:15 | Outpatient (POV) | payer MEDICARE, MEDICAID, SELFPAY ==
[2019-08-05 10:45] VITALS: BP 129/89; PULSE 91; RESP 18; O2SAT 99; BMI 33.0
--- NOTE | 2019-08-05 11:22 | P.CONS_ITS ---
[facility] Pain Management SOAP Note Subjective:: Patient is a pleasant 64-year-old white male who presents today for follow-up after his epidurogram. He is a candidate for an L2-L3 L3-L4 mild procedure. Patient and I discussed his difficulty with travel. I will have his options developed for him and presented but we will get him scheduled for a mild procedure. Most of his pain is when he standing and walking. Patient has relief of his pain when he sits down. He rates his pain today 6 out of 10. He is on tramadol and Lyrica. ROS General: no recent weight change, no fever, no sleep disturbances Respiratory: no cough, no shortness of air, no recurring pulmonary infections Cardiovascular/Peripheral Vascular: No chest pain, No palpitations, no edema, no shortness of breath. Gastrointestinal: no new onset incontinence, normal bowel movements reported Genitourinary: no new onset incontinence Musculoskeletal: Back pain, leg pain Psychiatric: normal mood/ affect, [denies depression], [denies anxiety] Neurological: Admits to bilateral lower extremities when walking, [denies new onset balance issues] Objective:: Physical Exam General: Alert and oriented x3, no acute distress, pleasant and cooperative, [on room air] Lungs: Resps E/U, Symmetrical chest expansion, Eyes: PERRL Musculoskeletal: Flexion and extension of lumbar spine somewhat guarded secondary to pain, deep tendon reflexes normal, strength in upper and lower extremities [5/5], [abnormal gait noted] Neurological: speech clear, channel lip stiffener insoles equal, no gross sensory deficits Assessment:: Degenerative disc disease lumbar spine with lumbar radiculopathy spinal stenosis with neurogenic claudication Plan:: We will set him up for a mild procedure. We will continue his tramadol and Lyrica. We will find out what his options are as far as transportation or. Dr. Peguero has reviewed this note and agrees with this plan of care. This note was dictated using voice recognition software and may contain errors or omissions [facility] History I have reviewed the patient's past medical history: Yes Medical History: Reports:: Asthma Denies:: Cancer, Diabetes Mellitus Type 1, Diabetes Mellitus Type 2, MRSA, Seizures *Have you ever received a pneumonia vaccine?: Yes *Have you received a flu vaccine this season?: Yes Other Medical History: Reports: Arthritis. Denies: Blood Transfusion Reaction Laterality Cases: Right: Arthroscopy Shoulder, Bilateral: Tonsillectomy Other Surgeries: Yes: Appendectomy, Other Amputation: No Fractures: No - *Social History Smoking Status: Current every day smoker Tobacco Type: cigarettes # Packs/Day (cigarettes): 2 #Yrs smoked (if former smoker): 40 Alcohol Intake: never Substance Use Type: marijuana, other *Occupational Status:: other Housing: house *Travel in the last 8 weeks: None Family Hx:: Adopted
--- NOTE | 2019-08-19 13:13 | PC.NURSE ---
lyrica 150mg bid called into [facility] in [place] with 2 refills per provider order
== END ==
PROVIDERS: PCP Family Medicine; Visit Provider Clinical Nurse Specialist Family Health
DX: M51.16 Intervertebral disc disorders with radiculopathy, lumbar region (principal); M48.062 Spinal stenosis, lumbar region with neurogenic claudication
CPT/HCPCS: 99212

== ENCOUNTER → 2019-11-18 10:34 | Outpatient (POV) | payer MEDICARE, MEDICAID, SELFPAY ==
[2019-11-18 10:42] VITALS: BP 124/89; PULSE 77; RESP 18; TEMP 36.6; O2SAT 98; BMI 34.9
--- NOTE | 2019-11-18 15:55 | P.CONS_ITS ---
[facility] Pain Management SOAP Note Subjective:: Patient is a pleasant 64-year-old white male who presents today for follow-up. Patient is doing well at this time. Patient is awaiting an L2-L3 L3-L4 mild procedure. Patient is also on tramadol and Lyrica. Patient and I discussed increasing his Lyrica. He is currently on 150 mg 1 p.o. twice daily. And tramadol 50 mg 1 p.o. 4 times daily. [place] #[id number] reviewed and appropriate. He denies side effects to the medication. He rates his pain today 6 out of 10. Mostly when he standing or walking. ROS General: no recent weight change, no fever, no sleep disturbances Respiratory: no cough, no shortness of air, no recurring pulmonary infections Cardiovascular/Peripheral Vascular: No chest pain, No palpitations, no edema, no shortness of breath. Gastrointestinal: no new onset incontinence, normal bowel movements reported Genitourinary: no new onset incontinence Musculoskeletal: Back pain, leg pain Psychiatric: normal mood/ affect, [denies depression], Neurological: Lateral lower extremity weakness when walking, [denies new onset balance issues] Objective:: Physical Exam General: Alert and oriented x3, no acute distress, pleasant and cooperative, [on room air] Lungs: Resps E/U, Symmetrical chest expansion, Eyes: PERRL Musculoskeletal: Flexion and extension of lumbar spine somewhat guarded secondary to pain, deep tendon reflexes normal, strength in upper and lower extremities [5/5], [abnormal gait noted] Neurological: speech clear, printing services coordinator equal, no gross sensory deficits Assessment:: Degenerative disc disease lumbar spine with lumbar radiculopathy spinal stenosis with neurogenic claudication Plan:: We will refill his tramadol and increase his Lyrica to 150 mg 1 p.o. 3 times daily. We will see him back for a mild procedure at L2-L3 L3-L4. She he is not on any anticoagulation therapy. He is been instructed to call the office if he has any issues prior to his next appointment. Dr. Peguero has reviewed this note and agrees with this plan of care. This note was dictated using voice recognition software and may contain errors or omissions Patient has been prescribed a controlled substance after being counseled on the medication, medication safety, and possible side effects. CODY report has been obtained and reviewed prior to prescription and found to be appropriate. Opioid contract was reviewed and signed by the patient, and that they have agreed to all of the terms set forth by our compliance program. [facility] History I have reviewed the patient's past medical history: Yes Medical History: Reports:: Asthma Denies:: Cancer, Diabetes Mellitus Type 1, Diabetes Mellitus Type 2, MRSA, Seizures *Have you ever received a pneumonia vaccine?: Yes *Have you received a flu vaccine this season?: Yes Other Medical History: Reports: Arthritis. Denies: Blood Transfusion Reaction Laterality Cases: Right: Arthroscopy Shoulder, Bilateral: Tonsillectomy Other Surgeries: Yes: Appendectomy, Other Amputation: No Fractures: No - *Social History Smoking Status: Current every day smoker Tobacco Type: cigarettes # Packs/Day (cigarettes): 2 #Yrs smoked (if former smoker): 40 Alcohol Intake: never Substance Use Type: marijuana, other *Occupational Status:: other Housing: house *Travel in the last 8 weeks: None Family Hx:: Adopted
== END ==
PROVIDERS: PCP Family Medicine; Visit Provider Clinical Nurse Specialist Family Health
DX: M51.16 Intervertebral disc disorders with radiculopathy, lumbar region (principal); M48.062 Spinal stenosis, lumbar region with neurogenic claudication
CPT/HCPCS: 99212

== ENCOUNTER → 2019-12-18 11:58 | Outpatient (CLI) | payer MEDICARE, MEDICAID, SELFPAY ==
[2019-12-18 14:33] LABS: Coronavirus 19 IgG Antibody Negative (Negative); Coronavirus 19 IgM Antibody Negative (Negative)
== END ==
PROVIDERS: Visit Provider Anesthesiology
DX: Z01.818 Encounter for other preprocedural examination (principal)
CPT/HCPCS: 36415; 86328

== ENCOUNTER 2019-12-19 08:21 | Day surgery (SDC) | payer MEDICARE, MEDICAID, SELFPAY ==
--- NOTE | 2019-12-17 09:33 | SUR.PREOP ---
12/17/2019 @ 3100--PHONE CALL MADE TO PATIENT. PATIENT UNDERSTANDS THAT LAB WORK AND COVID TESTING NEEDS TO BE COMPLETED @ 1200 ON 12/18/2019. PATIENT UNDERSTANDS IF LAB WORK AND COVID-19 TESTS ARE NOT COMPLETED BY 12PM ON THAT DATE, THE SURGERY SCHEDULED WILL BE CANCELLED AND RESCHEDULED FOR ANOTHER TIME.
[2019-12-17 13:00] VITALS: BMI 34.9
[2019-12-19] VITALS (7 sets, daily range): BP systolic 125–136; BP diastolic 74–82; PULSE 70–78; RESP 16–18; TEMP 36.5–36.8; O2SAT 92–93
[2019-12-19 06:26] LABS: Basophils # 0.1 K/mm3 (0-0.2); Basophils % 0.9 % (0.1-2.0); Chloride 108 mmol/L (98-107); Eosinophils # 0.1 K/mm3 (0.0-0.4); Hemoglobin 16.9 g/dL (14.1-18.0); Lymphocytes # 2.7 K/mm3 (0.7-4.5); Lymphocytes % 39.2 % (10-50); Mean Corpuscular HGB Conc 31.8 g/dL (31.8-35.4); Mean Corpuscular Hemoglobin 31.4 pg (27.0-31.2); Mean Corpuscular Volume 98.5 fl (80-94); Mean Platelet Volume 10.7 fl (7.4-10.4); Monocytes # 0.7 K/mm3 (0.1-1.0); Monocytes % 10.4 % (1.7-9.3); Neutrophils # 3.3 K/mm3 (1.8-7.8); Neutrophils % 47.4 % (37.0-80.0); Platelet Count 201 K/mm3 (142-424); Red Blood Count 5.37 M/mm3 (4.60-6.20); Red Cell Distribution Width 13.5 % (11.5-17.5); White Blood Count 6.9 K/mm3 (4.8-10.8)
[2019-12-19 06:27] LABS: Potassium 4.3 mmoL/L (3.5-5.1); Sodium 140 mmol/L (136-145)
[2019-12-19 06:30] LABS: Anion Gap 9.3 mEq/L (5-15); Blood Urea Nitrogen 7 mg/dl (9-20); Calcium 9.4 mg/dl (8.4-10.2); Carbon Dioxide 27 mmol/L (22.0-30.0); Creatinine Clearance Estimated 107 mL/min (50-200); Estimated Glomerular Filt Rate 97 ml/min (>60); GFR (African American) 117 ML/MIN (>60); Glucose 101 mg/dl (74-100)
--- NOTE | 2019-12-19 09:09 | HMH.ANESCL ---
[facility] Anesthesia Checklist - Patient Identification Patient Identification: Arm Band, Verbal (Name & ) - Structural Data Admitted From: Home Planned Operative Procedure/s: mild Consent for Planned Operative Procedure(s) Verified: Yes Verified Documents: History and Physical - NPO Status Verified Time NPO: 00:00 - Chart Verification Results Verified: CBC, BMP - Additional verifications Patient : No Anesthesia Reactions: No Hx Blood Transfusions: No Blood Transfusion Reaction: No Cephalosporin Allergy: No Previous Colonoscopy: No - Cardiovascular Assessment Heart Sounds: S1 & S2 Pulse Strength: Baseline Pulse Rhythm: Regular Peripheral Edema: No - Airway Assessment C-Spine Mobility Assessed: Yes TMJ Mobility Assessed: Yes Dentition: Edentulous - Neurological Assessment Level of Consciousness: Awake, Alert, Appropriate Hx Seizures: No Numbness or tingling in extremities: No - Anesthesia Plan Anesthesia Risk discussed: Yes Anesthesia Plan: Verified ASA Class: III Anesthesia Type: MAC [facility] History I have reviewed the patient's past medical history: Yes Medical History: Reports:: Asthma Denies:: Cancer, Diabetes Mellitus Type 1, Diabetes Mellitus Type 2, Internal Pacemaker, MRSA, Seizures *Have you ever received a pneumonia vaccine?: No *Have you received a flu vaccine this season?: No Other Medical History: Reports: Arthritis. Denies: Blood Transfusion Reaction Anesthesia experience/problems:: none Laterality Cases: Right: Arthroscopy Shoulder, Bilateral: Tonsillectomy Other Surgeries: Yes: Appendectomy, Other. No: Pacemaker Amputation: No Fractures: No - *Social History Smoking Status: Current every day smoker Tobacco Type: cigarettes # Packs/Day (cigarettes): 1 #Yrs smoked (if former smoker): 40 Alcohol Intake: never Substance Use Type: marijuana, other *Occupational Status:: retired Housing: house Household Members: none *Travel in the last 8 weeks: None Family Hx:: Adopted
--- NOTE | 2019-12-19 12:18 | HMH.OPNOTE ---
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 He has increasing pain in his low back and right hip and right leg especially while standing and walking. He has classic neurogenic claudication symptoms. He is failed all previous conservative therapy including previous surgery, injections, oral medications and physical therapy. We will do minimally invasive lumbar decompression of L2-L3 and L3-L4 bilaterally today. Operative findings:: None Operative note:: Informed consent was obtained and the risk and benefits of the procedure was explained to the patient. The patient was taken to the operating room and placed prone on the procedure table. The patient was prepped and draped in sterile fashion. C-arm fluoroscopy was used to view the lumbar spine. The skin and subcutaneous tissues were anesthetized using lidocaine. A epidural needle was inserted and advanced into the L2-L3 interspace. After confirmation of needle placement in the epidural space, dye was injected in a contralateral oblique view. There was an epidurogram seen at L2-L3 and L3-L4. Significant stenosis was seen at L2-L3 and L3-L4. The skin and subcutaneous tissues again were anesthetized using lidocaine. An incision was made and a access trocar was inserted and advanced to contact at the superior aspect of the L4 lamina on the left side. And a contralateral oblique view the side was viewed. Using a bone rongeur and tissue sculptor we debulked bone from the L2-L3 and L3-L4 interspace on the left side. We then used the tissue sculptor to debulk ligament at the L2-L3 and L3-L4 interspace on the left side. We then moved over to the right side and debulked bone and ligament from L2-L3 and through L4 on the right side. There is opening of the stenosis at L2-L3 and through L4 bilaterally. The access trocar was removed. A total of 3 mL's of dye was used. There is good spread of dye above and below this level as well. We injected 80 mg Depo-Medrol through the epidural needle. The epidural needle was removed and dressings were placed. This encounter for exam is for normal comparison and control in a clinical research program Patient was taken to recovery in stable condition. Patient was discharged home neurologically intact and with good relief of pain symptoms. Plan and disposition: We will follow-up with this patient in 2 weeks. Will reevaluate symptoms at that time. Condition: stable Disposition: PACU Complications:: None
== END 2019-12-19 13:04 | disposition home or self-care (01) ==
LOC: OR 08:23
PROVIDERS: PCP Family Medicine; Visit Provider Anesthesiology
DX: M48.062 Spinal stenosis, lumbar region with neurogenic claudication (principal); Z00.6 Encounter for examination for normal comparison and control in clinical research program; M96.1 Postlaminectomy syndrome, not elsewhere classified
CPT/HCPCS: 0275T; 80048; 85025; 96374; C1889; J1040; J3370; Q9966

== ENCOUNTER → 2020-01-08 09:52 | Outpatient (POV) | payer MEDICARE, MEDICAID, SELFPAY ==
[2020-01-08 10:32] VITALS: BP 152/88; PULSE 88; RESP 18; TEMP 36.7; O2SAT 98; BMI 36.5
--- NOTE | 2020-01-08 13:26 | HMH.PAINSOAP ---
[facility] Pain Management SOAP Note Subjective:: Patient is a 65-year-old white male who presents today for follow-up after a minimally invasive lumbar decompression procedure. Patient says his pain is a 6 out of 10 today. He does say that he is having relief to his lower extremities. He says that most of his pain was in his low back area with heaviness and weakness in his lower extremities. He says that the heaviness has improved approximately 80% to his lower extremities, he does report to have some numbness and tingling from his knees up. He says that the low back pain has improved, however, he is continuing to have a little bit of pain with standing and walking . Patient has asked for an increase in his tramadol for the next month to see if this does give him more relief and while he is healing. He also takes Lyrica 150 mg 1 tablet p.o. twice daily. His tramadol is 50 mg 1 tablet p.o. 4 times daily. He is asked for 1 extra pill daily. Review of Systems General: No recent weight changes, no fever, no sleep disturbances Respiratory: No cough, no shortness of air, no recurring pulmonary infections Cardiovascular/peripheral vascular: No chest pain, no palpitations, no edema, no shortness of breath Gastrointestinal: No new onset incontinence, normal bowel movements reported Genitourinary: No new onset incontinence Musculoskeletal: Low back pain with radiation into his bilateral lower extremities to the knee Psychiatric: Normal mood/affect Neurological: [Denies weakness in extremities], [denies balance issues] Objective:: Physical exam General: Alert and oriented x3, no acute distress, pleasant and cooperative, [on room air] Lungs: Respirations even and unlabored, symmetrical chest expansion Eyes: PERRL Musculoskeletal: Flexion and extension of lumbar spine somewhat guarded secondary to pain, deep tendon reflexes normal, strength in upper and lower extremities [5/5], [abnormal gait noted] Neurological: Speech clear, ham stripper equal, no gross sensory deficit Assessment:: Degenerative disc disease lumbar spine with lumbar radiculopathy symptoms, spinal stenosis with neurogenic claudication symptoms, postlaminectomy syndrome lumbar spine Plan:: We will increase patient's tramadol 50 mg 1 tablet p.o. 5 times daily for the next month. We will also refill his pregabalin 150 mg 1 tablet p.o. twice daily. We will see how his symptoms are his next visit. We will decrease him back to the 4 times a day the following month if he is doing better with his pain. He has been instructed to contact clinic if he has any concerns before his next appointment. The patient and I specifically discussed risk factors for COVID19. These risks include, but are not limited to age greater than 60, heart or lung disease, diabetes, immunosuppression, and travel. We also discussed NSAIDs may worsen COVID19 infection or symptoms. Patient should not use NSAIDs to treat COVID19 signs or symptoms. Patient was also informed that any type of corticosteroid of any form (oral or injection) will decrease the patient's immune system response and may increase the likelihood of COVID19 infection [address] symptoms[address] Peguero has reviewed this note and agrees with this plan of care. This note was dictated using voice recognition software and make contain errors or omissions. [facility] History I have reviewed the patient's past medical history: Yes Medical History: Reports:: Asthma Denies:: Cancer, Diabetes Mellitus Type 1, Diabetes Mellitus Type 2, Internal Pacemaker, MRSA, Seizures *Have you ever received a pneumonia vaccine?: Yes *Have you received a flu vaccine this season?: Yes Other Medical History: Reports: Arthritis. Denies: Blood Transfusion Reaction Laterality Cases: Right: Arthroscopy Shoulder, Bilateral: Tonsillectomy Other Surgeries: Yes: Appendectomy, Other. No: Pacemaker Amputation: No Fractures: No - *Social History Smoking Status: Current every day smoker Tobac
== END ==
PROVIDERS: PCP Family Medicine; Visit Provider Clinical Nurse Specialist Family Health
DX: M51.16 Intervertebral disc disorders with radiculopathy, lumbar region (principal); M48.062 Spinal stenosis, lumbar region with neurogenic claudication; M96.1 Postlaminectomy syndrome, not elsewhere classified
CPT/HCPCS: 99212

== ENCOUNTER 2020-02-05 08:22 | Outpatient (RCR) | payer MEDICARE, MEDICAID, SELFPAY ==
--- NOTE | 2020-02-05 09:54 | HMH.PTOPEV ---
PT Outpatient Evaluation Rehab PT Outpatient Evaluation Start: 02/05/20 08:58 Freq: Status: Active Protocol: Document 02/05/20 08:58 JAYJAY (Rec: 02/05/20 09:54 JAYJAY [id number]) Electronically Signed By Pito Hodges, PT 02/05/20 08:58 Outpatient Therapy Subjective History Subjective History Pt reports h/o chronic LBP for ~25 yrs, recent 'lumbar decompression' procedure at L2 -3. Pt reports no relief with recent procedure, 'mostly constant low back pain', reports R>L sided LBP w/ intermittent B LE radicular s/ s to knee level. PMH: lumbar fusion L5-S1 in 2000. Chief Complaint Pain,Stiff,Paresthesia, Weakness Symptom Type Ache,Sharp,Dull Symptoms Relieved By Rest/Positioning,Prescription Meds Symptoms Aggravated By Bending/Stooping,Physical Activity,Twisting,Lifting Prior Functional Limitations Lifting,Housework,Bending/ Stooping Current Functional Limitations Lifting,Housework,Bending/ Stooping Symptom Description Constant but Variable Level of pain today (0-10) 5 Pain scale - at its best (0-10) 5 Pain scale - at its worst (0-10) 8 Lumbopelvic Eval Posture Thoracic Spine Posture Standing Position Flattened Lumbar Spine Posture Standing Position Flattened Assistive device Assistive Devices None / NA Gait Observation General Gait Pattern Observation No Deviations/Normal Palapation tenderness bilateral lumbar spinal tenderness Yes: 2/4 paraspinal tenderness Yes: 3/4 buttock tenderness Yes: 2-3/4 Lumbar/Sacral Palpation Findings Tenderness,Trigger Point, Muscle Guarding Accessory Movement T-spine Vertebrae Accessory Movements Central P/A [place] that Elicit Symptoms T10 bilateral T11 bilateral T12 bilateral L-spine Vertebrae Accessory Movements Central P/A [place] that Elicit Symptoms L2 bilateral L3 bilateral L4 bilateral L5 bilateral S1 bilateral Range of Motion Lumbar Spine Active Flexion Range of 0-40 Motion (degrees) Lumbar Spine Active Extension Range of 0-15 Motion (degrees) Left Lumbar Spine Lateral Flexion Active 0-20 Range of Nacho
== END 2020-02-05 09:20 | disposition home or self-care (01) ==
LOC: PT 08:22
PROVIDERS: PCP Family Medicine; Visit Provider Clinical Nurse Specialist Family Health
DX: M54.5 Low back pain (principal)
CPT/HCPCS: 97010; 97014; 97035; 97110; 97163; G0283

== ENCOUNTER → 2020-02-05 10:08 | Outpatient (POV) | payer MEDICARE, MEDICAID, SELFPAY ==
[2020-02-05 11:27] VITALS: BP 132/88; PULSE 78; RESP 18; O2SAT 99; BMI 33.0
--- NOTE | 2020-02-05 11:33 | HMH.PAINSOAP ---
[facility] Pain Management SOAP Note Subjective:: Patient is a 65-year-old white male who presents today for follow-up. He is being treated for low back pain with lumbar radiculopathy symptoms as well as spinal stenosis with neurogenic claudication. Patient is managed with tramadol and Lyrica. He says that he feels the Lyrica is not giving him long-term relief. He would like to change the way he is getting the medicine rather than taking 150 mg 3 times daily, he would like to change his medication to 75 mg 3 times daily. He would also like to continue on the tramadol. He and I did discuss today possible intrathecal therapy or spinal cord stimulation. His pain is primarily in his low back with radiation into his lower extremities. He does say that he has severe pain with standing and washing dishes as well as doing activities such as mowing his lawn. He says that he is unable to tolerate standing for very long. He is interested in possible spinal cord stimulation and intrathecal therapy. He was given educational information today. Review of Systems General: No recent weight changes, no fever, no sleep disturbances Respiratory: No cough, no shortness of air, no recurring pulmonary infections Cardiovascular/peripheral vascular: No chest pain, no palpitations, no edema, no shortness of breath Gastrointestinal: No new onset incontinence, normal bowel movements reported Genitourinary: No new onset incontinence Musculoskeletal: Low back pain, bilateral leg pain Psychiatric: Normal mood/affect Neurological: [Denies weakness in extremities], [denies balance issues] Objective:: Physical exam General: Alert and oriented x3, no acute distress, pleasant and cooperative, [on room air] Lungs: Respirations even and unlabored, symmetrical chest expansion Eyes: PERRL Musculoskeletal: Flexion and extension of lumbar spine somewhat guarded secondary to pain, deep tendon reflexes normal, strength in upper and lower extremities [5/5], [abnormal gait noted] Neurological: Speech clear, heating element repairer equal, no gross sensory deficit Assessment:: Degenerative disc disease lumbar spine with lumbar radiculopathy symptoms, spinal stenosis with neurogenic claudication symptoms Plan:: We will change the patient's Lyrica to 75 mg 1 tablet p.o. 3 times daily. We will also continue his tramadol 50 mg 1 tablet p.o. 4 times daily. We will give him a month of medication. We will plan to send him for a psychological evaluation to see if he is an appropriate candidate for spinal cord stimulation versus intrathecal therapy. The patient's Jesus #[id number] was reviewed is appropriate. His morphine equivalent is 20. His urine drug screens have been appropriate. Patient has been instructed to contact clinic if he has any concerns before his next appointment. The patient and I specifically discussed risk factors for COVID19. These risks include, but are not limited to age greater than 60, heart or lung disease, diabetes, immunosuppression, and travel. We also discussed NSAIDs may worsen COVID19 infection or symptoms. Patient should not use NSAIDs to treat COVID19 signs or symptoms. Patient was also informed that any type of corticosteroid of any form (oral or injection) will decrease the patient's immune system response and may increase the likelihood of COVID19 infection [address] symptoms[address] Peguero has reviewed this note and agrees with this plan of care. This note was dictated using voice recognition software and make contain errors or omissions. [facility] History I have reviewed the patient's past medical history: Yes Medical History: Reports:: Asthma Denies:: Cancer, Diabetes Mellitus Type 1, Diabetes Mellitus Type 2, Internal Pacemaker, MRSA, Seizures *Have you ever received a pneumonia vaccine?: Yes *Have you received a flu vaccine this season?: Yes Other Medical History: Reports: Arthritis. Denies: Blood Transfusion Reaction Laterality Cases: Right: Arthroscopy Shoulder,
== END ==
PROVIDERS: PCP Family Medicine; Visit Provider Clinical Nurse Specialist Family Health
DX: M51.16 Intervertebral disc disorders with radiculopathy, lumbar region (principal); M48.062 Spinal stenosis, lumbar region with neurogenic claudication
CPT/HCPCS: 99212

== ENCOUNTER → 2020-03-18 13:44 | Outpatient (POV) | payer MEDICARE, MEDICAID, SELFPAY ==
[2020-03-18 14:40] VITALS: BP 132/74; PULSE 79; RESP 18; O2SAT 98; BMI 31.7
--- NOTE | 2020-03-18 15:31 | HMH.PAINSOAP ---
[facility] Pain Management SOAP Note Subjective:: Patient is a very pleasant 65-year-old white male who presents today for follow-up. His been treated for low back pain with lumbar radiculopathy symptoms, as well as spinal stenosis with neurogenic claudication symptoms. Patient did undergo mild procedure for which he says he is continuing to get relief from, however, he continues to have chronic low back pain with radiation into his bilateral legs stopping at the knees. Patient is managed with tramadol and Lyrica. He is taking tramadol 50 mg 1 tablet p.o. 5 times daily. He has stopped taking his Lyrica because he does not feel it was given him any relief. He did not have had discussions concerning spinal cord stimulation versus intrathecal therapy. Patient is still unsure if he wants to proceed with either device. At this time he would like to continue with his tramadol. He rates his pain a 4 out of 10. Review of Systems General: No recent weight changes, no fever, no sleep disturbances Respiratory: No cough, no shortness of air, no recurring pulmonary infections Cardiovascular/peripheral vascular: No chest pain, no palpitations, no edema, no shortness of breath Gastrointestinal: No new onset incontinence, normal bowel movements reported Genitourinary: No new onset incontinence Musculoskeletal: Low back pain radiating into bilateral legs stopping at the knee Psychiatric: Normal mood/affect Neurological: [Denies weakness in extremities], [denies balance issues] Objective:: Physical exam General: Alert and oriented x3, no acute distress, pleasant and cooperative, [on room air] Lungs: Respirations even and unlabored, symmetrical chest expansion Eyes: PERRL Musculoskeletal: Flexion and extension of lumbar spine somewhat guarded secondary to pain, deep tendon reflexes normal, strength in upper and lower extremities [5/5], [abnormal gait noted] Neurological: Speech clear, die press operator equal, no gross sensory deficit Assessment:: Degenerative disc disease lumbar spine with lumbar radiculopathy symptoms, spinal stenosis with neurogenic claudication symptoms Plan:: Patient will continue with his tramadol for now. He says he does not need any refills for 2 months. We will plan to see him back in the clinic in 2 months to reassess his symptoms at that time. He has been instructed to contact clinic if he has any concerns before his next appointment. The patient and I specifically discussed risk factors for COVID19. These risks include, but are not limited to age greater than 60, heart or lung disease, diabetes, immunosuppression, and travel. We also discussed NSAIDs may worsen COVID19 infection or symptoms. Patient should not use NSAIDs to treat COVID19 signs or symptoms. Patient was also informed that any type of corticosteroid of any form (oral or injection) will decrease the patient's immune system response and may increase the likelihood of COVID19 [address] Peguero has reviewed this note and agrees with this plan of care. This note was dictated using voice recognition software and make contain errors or omissions. [facility] History I have reviewed the patient's past medical history: Yes Medical History: Reports:: Asthma Denies:: Cancer, Diabetes Mellitus Type 1, Diabetes Mellitus Type 2, Internal Pacemaker, MRSA, Seizures *Have you ever received a pneumonia vaccine?: Yes *Have you received a flu vaccine this season?: Yes Other Medical History: Reports: Arthritis. Denies: Blood Transfusion Reaction Laterality Cases: Right: Arthroscopy Shoulder, Bilateral: Tonsillectomy Other Surgeries: Yes: Appendectomy, Other. No: Pacemaker Amputation: No Fractures: No - *Social History Smoking Status: Current every day smoker Tobacco Type: cigarettes # Packs/Day (cigarettes): 1 #Yrs smoked (if former smoker): 40 Alcohol Intake: never Substance Use Type: marijuana, other *Occupational Status:: other Housing: house Household Member
== END ==
PROVIDERS: PCP Family Medicine; Visit Provider Clinical Nurse Specialist Family Health
DX: M51.16 Intervertebral disc disorders with radiculopathy, lumbar region (principal); M48.062 Spinal stenosis, lumbar region with neurogenic claudication
CPT/HCPCS: 99212

== ENCOUNTER → 2020-05-20 14:05 | Outpatient (POV) | payer MEDICARE, MEDICAID, SELFPAY ==
[2020-05-20 14:16] VITALS: BP 145/77; PULSE 78; RESP 18; TEMP 36.2; O2SAT 98; BMI 32.6
--- NOTE | 2020-05-20 14:32 | HMH.PAINSOAP ---
[facility] Pain Management SOAP Note Subjective:: Patient is a 65-year-old white male who presents today for follow-up. He has been treated for chronic low back pain with lumbar radiculopathy symptoms and spinal stenosis with neurogenic claudication symptoms. Patient has had a mild procedure in the past for which he did get relief to his bilateral legs. He is continuing to have some low back pain, however. He says that his pain is worse at night when he is laying down. He is managed with tramadol and Lyrica. He did taking his Lyrica recently, however, he says his pain worsened after stopping Lyrica. Patient does need refill on his medications. He is complaining of left wrist pain today. He says that he does have to chop wood throughout the winter and his pain is severe. He has had injections in his wrist in the past which do not give him much relief. Rates his pain a 5 out of 10 today. Review of Systems General: No recent weight changes, no fever, no sleep disturbances Respiratory: No cough, no shortness of air, no recurring pulmonary infections Cardiovascular/peripheral vascular: No chest pain, no palpitations, no edema, no shortness of breath Gastrointestinal: No new onset incontinence, normal bowel movements reported Genitourinary: No new onset incontinence Musculoskeletal: Low back pain,, left wrist pain Psychiatric: Normal mood/affect Neurological: [Denies weakness in extremities], [denies balance issues] Objective:: Physical exam General: Alert and oriented x3, no acute distress, pleasant and cooperative, [on room air] Lungs: Respirations even and unlabored, symmetrical chest expansion Eyes: PERRL Musculoskeletal: Flexion and extension of lumbar spine somewhat guarded secondary to pain, deep tendon reflexes normal, strength in upper and lower extremities [5/5], normal gait noted Neurological: Speech clear, television schedule coordinator equal, no gross sensory deficit Assessment:: Degenerative disc disease lumbar spine with lumbar radiculopathy symptoms, spinal stenosis with neurogenic claudication symptoms, left wrist pain Plan:: We will continue the patient on his tramadol 50 mg 1 tablet p.o. 5 times daily. He would like to resume his Lyrica. We will continue his Lyrica at 150 mg 1 tablet p.o. at bedtime only. Patient and I did discuss compounding cream for his left wrist. We will order him compounding cream for the left wrist. We will see him back in 3 months to reassess his symptoms. Patient would like to postpone a month follow-up because of Covid. He says that he is very concerned with the continued increase in numbers. I am in agreement with the patient and will see him back in 3 months. He has been instructed to contact clinic if he has any concerns before his next appointment. The patient and I specifically discussed risk factors for COVID19. These risks include, but are not limited to age greater than 60, heart or lung disease, diabetes, immunosuppression, and travel. We also discussed NSAIDs may worsen COVID19 infection or symptoms. Patient should not use NSAIDs to treat COVID19 signs or symptoms. Patient was also informed that any type of corticosteroid of any form (oral or injection) will decrease the patient's immune system response and may increase the likelihood of COVID19 infection and symptoms. And Patient has been prescribed a controlled substance after being counseled on the medication, medication safety, and possible side effects. CODY report has been obtained and reviewed prior to prescription and found to be appropriate. Opioid contract was reviewed and signed by the patient, and that they have agreed to all of the terms set forth by our compliance program. [facility] History I have reviewed the patient's past medical history: Yes Medical History: Reports:: Asthma Denies:: Cancer, Diabetes Mellitus Type 1, Diabetes Mellitus Type 2, Internal Pacemaker, MRSA, Seizures *Have you ever received a pneumonia vaccine?: Yes *[place]
== END ==
PROVIDERS: PCP Family Medicine; Visit Provider Clinical Nurse Specialist Family Health
DX: M51.16 Intervertebral disc disorders with radiculopathy, lumbar region (principal); M48.062 Spinal stenosis, lumbar region with neurogenic claudication; M25.532 Pain in left wrist
CPT/HCPCS: 99212

== ENCOUNTER → 2020-08-19 13:35 | Outpatient (POV) | payer MEDICARE, MEDICAID, SELFPAY ==
--- NOTE | 2020-08-19 15:36 | HMH.PAINSOAP ---
[facility] Pain Management SOAP Note Subjective:: Patient is a 65-year-old white male who presents today for follow-up. He is being treated for degenerative disc disease lumbar spine with lumbar radiculopathy symptoms and spinal stenosis with neurogenic claudication symptoms. Patient has had a mild procedure in the past for which he did get relief to his bilateral lower extremities. He does continue to have chronic low back pain despite his mild procedure. Patient's pain is a 5 out of 10 today. He was managed with Lyrica 150 mg 1 tablet p.o. daily and tramadol 50 mg 1 tablet p.o. 5 times daily. Patient says he has not gotten any relief with his tramadol. He says his pain is worsening. He denies any side effects to the medication, however, he does not feel he is getting significant relief at this point. He has tried and failed conservative therapies of injections and physical therapy for greater than 6 weeks. Review of Systems General: No recent weight changes, no fever, no sleep disturbances Respiratory: No cough, no shortness of air, no recurring pulmonary infections Cardiovascular/peripheral vascular: No chest pain, no palpitations, no edema, no shortness of breath Gastrointestinal: No new onset incontinence, normal bowel movements reported Genitourinary: No new onset incontinence Musculoskeletal: Chronic low back pain radiating into bilateral lower extremities, worse with walking and standing Psychiatric: Normal mood/affect Neurological: [Denies weakness in extremities], [denies balance issues] Objective:: Physical exam General: Alert and oriented x3, no acute distress, pleasant and cooperative, [on room air] Lungs: Respirations even and unlabored, symmetrical chest expansion Eyes: PERRL Musculoskeletal: Flexion and extension of lumbar spine somewhat guarded secondary to pain, deep tendon reflexes normal, strength in upper and lower extremities [5/5], [abnormal gait noted] Neurological: Speech clear, transit mixer operator equal, no gross sensory deficit Assessment:: Degenerative disc disease lumbar spine with lumbar radiculopathy symptoms, spinal stenosis with neurogenic claudication symptoms Plan:: We will stop the patient's tramadol. We will start him on [place] 5 mg 1 tablet p.o. 2 times daily. He has been advised to continue with his tramadol until he is finished. He is scheduled to run out of his tramadol on Sunday. He will then start his [place] 5 mg 1 tablet p.o. twice daily. He will continue with his Lyrica 150 mg 1 tablet p.o. daily. He will get a month medication be seen back in the clinic in a month to reevaluate his symptoms. He has been instructed to contact clinic if he has any concerns before his next appointment. Risks and benefits of the medication have been explained in detail to the patient. The patient has been advised to consult with his/her primary care provider and pharmacist regarding drug-drug interaction of medications currently prescribed. The patient and I specifically discussed risk factors for COVID19. These risks include, but are not limited to age greater than 60, heart or lung disease, diabetes, immunosuppression, and travel. We also discussed NSAIDs may worsen COVID19 infection or symptoms. Patient should not use NSAIDs to treat COVID19 signs or symptoms. Patient was also informed that any type of corticosteroid of any form (oral or injection) will decrease the patient's immune system response and may increase the likelihood of COVID19 infection and symptoms[address] Dr. Peguero has reviewed this note and agrees with this plan of care. This note was dictated using voice recognition software and make contain errors or omissions. [facility] History I have reviewed the patient's past medical history: Yes Medical History: Reports:: Asthma Denies:: Cancer, Diabetes Mellitus Type 1, Diabetes Mellitus Type 2, Internal Pacemaker, MRSA, Seizures *Have you ever received a pneumonia vaccine?: Yes *Have you received a flu vaccine
[2020-08-19 15:51] VITALS: BP 125/85; PULSE 85; RESP 18; O2SAT 98; BMI 32.6
== END ==
PROVIDERS: PCP Family Medicine; Visit Provider Clinical Nurse Specialist Family Health
DX: M51.16 Intervertebral disc disorders with radiculopathy, lumbar region (principal); M48.062 Spinal stenosis, lumbar region with neurogenic claudication
CPT/HCPCS: 99212; G0463

== ENCOUNTER → 2020-09-16 11:14 | Outpatient (POV) | payer MEDICARE, MEDICAID, SELFPAY ==
[2020-09-16 12:27] VITALS: BP 142/85; PULSE 103; RESP 18; O2SAT 98; BMI 33.4
--- NOTE | 2020-09-16 12:29 | P.CONS_ITS ---
[facility] Pain Management SOAP Note Subjective:: Patient is a pleasant 65-year-old white male who presents today for medication refills. Patient was changed from tramadol 5 times daily to Rem[place] 5 mg 1 p.o. twice daily at his last visit patient states it does extremely well for him however he would like to increase it slightly. He rates his pain today a 6 out of 10. [facility] #[id number] reviewed and appropriate he is off his tramadol he is currently got a morphine equivalent of 10 he is also using a compounding cream. This is beneficial for him. ROS General: no recent weight change, no fever, no sleep disturbances Respiratory: no cough, no shortness of air, no recurring pulmonary infections Cardiovascular/Peripheral Vascular: No chest pain, No palpitations, no edema, no shortness of breath. Gastrointestinal: no new onset incontinence, normal bowel movements reported Genitourinary: no new onset incontinence Musculoskeletal: Back pain, leg pain Psychiatric: normal mood/ affect Neurological: [denies new onset weakness in extremities], [denies new onset balance issues] Objective:: Physical Exam General: Alert and oriented x3, no acute distress, pleasant and cooperative, [on room air] Lungs: Resps E/U, Symmetrical chest expansion, Eyes: PERRL Musculoskeletal: Flexion and extension of lumbar spine somewhat guarded secondary to pain, deep tendon reflexes normal, strength in upper and lower extremities [5/5], [abnormal gait noted] Neurological: speech clear, photographic laboratory technician equal, no gross sensory deficits Assessment:: Degenerative disc disease lumbar spine lumbar radiculopathy, back pain Plan:: We will increase his Remlap to 5 mg 1 p.o. 3 times daily. We will see him back in 2 months reassess his symptoms at that time he has been instructed to call the office if he has any issues prior to his next appointment. Dr. Peguero has reviewed this note and agrees with this plan of care. This note was dictated using voice recognition software and may contain errors or omissions [facility] History I have reviewed the patient's past medical history: Yes Medical History: Reports:: Asthma Denies:: Cancer, Diabetes Mellitus Type 1, Diabetes Mellitus Type 2, Internal Pacemaker, MRSA, Seizures *Have you ever received a pneumonia vaccine?: Yes *Have you received a flu vaccine this season?: Yes Other Medical History: Reports: Arthritis. Denies: Blood Transfusion Reaction Laterality Cases: Right: Arthroscopy Shoulder, Bilateral: Tonsillectomy Other Surgeries: Yes: Appendectomy, Other. No: Pacemaker Amputation: No Fractures: No - *Social History Smoking Status: Current every day smoker Tobacco Type: cigarettes # Packs/Day (cigarettes): 1 #Yrs smoked (if former smoker): 40 Alcohol Intake: never Substance Use Type: marijuana, other *Occupational Status:: disabled Housing: house Household Members: none *Travel in the last 8 weeks: None Family Hx:: Adopted
== END ==
PROVIDERS: Visit Provider Clinical Nurse Specialist Family Health
DX: M51.16 Intervertebral disc disorders with radiculopathy, lumbar region (principal)
CPT/HCPCS: 99212; G0463

== ENCOUNTER → 2020-11-18 13:15 | Outpatient (POV) | payer MEDICARE, MEDICAID, SELFPAY ==
[2020-11-18 13:25] VITALS: BP 171/95; PULSE 120; RESP 18; O2SAT 95; BMI 34.2
--- NOTE | 2020-11-18 14:38 | HMH.PAINSOAP ---
[facility] Pain Management SOAP Note Subjective:: Patient is a 65-year-old white male who presents today for medication refills and for follow-up. He is being treated for degenerative disc disease lumbar spine with lumbar radiculopathy symptoms. Patient does rate his pain a 6 out of 10 today. He has managed with [place] 5 mg 1 tablet p.o. 3 times daily, Lyrica 150 mg 1 tablet p.o. twice daily, and compounding cream. He is out of his compounding cream. Patient does say the medication is working much better for him than tramadol. He says he is able to get out and be more active since starting [place]. Patient says he had gained 30 pounds while taking tramadol because he was limited with mobility. He is exercising more and being more active to the point that he is starting to lose weight. Patient does say, however, he is having some worsening low back pain with radiation into the right leg and right foot. He is requesting to see Dr. DIXON Gates at his next visit to discuss a further plan of care with possible injective therapy. He says he has not seen Dr. Trujillo for some time and would like to discuss his options with him. Review of Systems General: No recent weight changes, no fever, no sleep disturbances Respiratory: No cough, no shortness of air, no recurring pulmonary infections Cardiovascular/peripheral vascular: No chest pain, no palpitations, no edema, no shortness of breath Gastrointestinal: No new onset incontinence, normal bowel movements reported Genitourinary: No new onset incontinence Musculoskeletal: Low back pain with radiation into right leg Psychiatric: Normal mood/affect Neurological: [Denies weakness in extremities], [denies balance issues] Objective:: Physical exam General: Alert and oriented x3, no acute distress, pleasant and cooperative, [on room air] Lungs: Respirations even and unlabored, symmetrical chest expansion Eyes: PERRL Musculoskeletal: Flexion and extension of lumbar spine somewhat guarded secondary to pain, deep tendon reflexes normal, strength in upper and lower extremities [5/5], [abnormal gait noted] Neurological: Speech clear, brake lining curer equal, no gross sensory deficit Assessment:: Degenerative disc disease lumbar spine with lumbar radiculopathy symptoms Plan:: We will refill the patient's [place] 5 mg 1 tablet p.o. 3 times daily, Lyrica 150 mg 1 tablet p.o. twice daily, and his compounding cream. We will give the patient 2 months of medication and he will return to the clinic to see Dr. Trujillo at his next visit. He has been instructed to contact clinic if he has any concerns for his next appointment. Patient has been prescribed a controlled substance after being counseled on the medication, medication safety, and possible side effects. CODY report has been obtained and reviewed prior to prescription and found to be appropriate. Opioid contract was reviewed and signed by the patient, and that they have agreed to all of the terms set forth by our compliance program.patient has been instructed to contact the clinic with any concerns before the next appointment. Dr. Peguero has reviewed this note and agrees with this plan of care. This note was dictated using voice recognition software and make contain errors or omissions. [facility] History I have reviewed the patient's past medical history: Yes Medical History: Reports:: Asthma Denies:: Cancer, Diabetes Mellitus Type 1, Diabetes Mellitus Type 2, Internal Pacemaker, MRSA, Seizures *Have you ever received a pneumonia vaccine?: No *Have you received a flu vaccine this season?: Yes Other Medical History: Reports: Arthritis. Denies: Blood Transfusion Reaction Laterality Cases: Right: Arthroscopy Shoulder, Bilateral: Tonsillectomy Other Surgeries: Yes: Appendectomy, Other. No: Pacemaker Amputation: No Fractures: No - *Social History Smoking Status: Current every day smoker Tobacco Type: cigarettes # Packs/Day (cigarettes): 1 #Yrs smoked (if former smoker): 40 A
== END ==
PROVIDERS: Visit Provider Clinical Nurse Specialist Family Health
DX: M51.16 Intervertebral disc disorders with radiculopathy, lumbar region (principal)
CPT/HCPCS: 99212; G0463

== ENCOUNTER → 2021-01-28 11:49 | Outpatient (POV) | payer MEDICARE, MEDICAID, SELFPAY ==
--- NOTE | 2021-01-28 12:59 | HMH.PAINSOAP ---
[facility] Pain Management SOAP Note Subjective:: Patient is a pleasant 65-year-old white male who we have been treating for postlaminectomy syndrome of lumbar spine with lumbar radiculopathy symptoms. He also has spinal stenosis with neurogenic claudication symptoms. He did have a minimally invasive lumbar decompression bilateral L3-L4 and L4-L5. This did help with some of his pain symptoms. He still has significant pain in his back radiating down both legs. This patient has failed all previous conservative therapy including surgery, oral medications, injections. I do believe he would be a good candidate for spinal cord stimulation. We have had a long discussion about this. We will set him up for spinal cord stimulator trial to see if this helps with his pain symptoms. Objective:: Alert and oriented x3 no acute distress. Patient does have an antalgic gait. Motor strength of the lower extremities is 5/5. There is no gross sensory deficit. Assessment:: Postlaminectomy syndrome lumbar spine with lumbar radiculopathy symptoms Plan:: We will seek approval for spinal cord stimulator trial to help him with his low back pain and leg pain. Most of his pain is on the left side however he does have some pain on the right side as well. [facility] History Medical History: Reports:: Asthma Denies:: Cancer, Diabetes Mellitus Type 1, Diabetes Mellitus Type 2, Internal Pacemaker, MRSA, Seizures *Have you ever received a pneumonia vaccine?: No *Have you received a flu vaccine this season?: Yes Other Medical History: Reports: Arthritis. Denies: Blood Transfusion Reaction Laterality Cases: Right: Arthroscopy Shoulder, Bilateral: Tonsillectomy Other Surgeries: Yes: Appendectomy, Other. No: Pacemaker Amputation: No Fractures: No - *Social History Smoking Status: Current every day smoker Tobacco Type: cigarettes # Packs/Day (cigarettes): 1 #Yrs smoked (if former smoker): 40 Alcohol Intake: never Substance Use Type: marijuana, other *Occupational Status:: unemployed Housing: house Household Members: none *Travel in the last 8 weeks: Inside the [facility] Family Hx:: Adopted
[2021-01-28 13:08] VITALS: BP 140/70; PULSE 89; RESP 18; O2SAT 98; BMI 33.4
== END ==
PROVIDERS: PCP Family Medicine; Visit Provider Anesthesiology
DX: M96.1 Postlaminectomy syndrome, not elsewhere classified (principal); M54.16 Radiculopathy, lumbar region
CPT/HCPCS: 99212; G0463

== ENCOUNTER → 2021-03-03 13:01 | Outpatient (POV) | payer MEDICARE, MEDICAID, SELFPAY ==
[2021-03-03 13:12] VITALS: BP 101/80; PULSE 88; RESP 18; O2SAT 96; BMI 36.5
--- NOTE | 2021-03-03 13:45 | HMH.PAINSOAP ---
[facility] Pain Management SOAP Note Subjective:: Patient is a 66-year-old white male who presents today for medication refills. He has been treated for degenerative disc disease lumbar spine with lumbar radiculopathy symptoms. Patient rates his pain a 6 out of 10. Patient has had a mild procedure L3-L4 L4-L5. It did help initially, however, he continues to have significant low back pain with radiation into his bilateral lower extremities. He has tried surgical intervention?postlaminectomy, injective therapy, as well as oral medications. He has had physical therapy in the past for greater than 6 weeks. He continues with home stretching to the best of his ability. Unfortunately, due to the patient's pain, he is limited with exercising. He reports he is having significant weight gain due to inability to walk or stand secondary to pain. He is managed in the clinic with Lyrica 150 mg 1 tablet p.o. twice daily and [place] 5 mg 1 tablet p.o. 4 times daily. [facility] #[id number] has been reviewed and is appropriate. Patient is awaiting psychological evaluation for possible spinal cord stimulation. He did discuss with Dr. Peguero and does feel it would be appropriate for his pain. Review of Systems General: No recent weight changes, no fever, no sleep disturbances Respiratory: No cough, no shortness of air, no recurring pulmonary infections Cardiovascular/peripheral vascular: No chest pain, no palpitations, no edema, no shortness of breath Gastrointestinal: No new onset incontinence, normal bowel movements reported Genitourinary: No new onset incontinence Musculoskeletal: Low back pain with radiation into bilateral lower extremities Psychiatric: [Normal mood/affect] Neurological: [Denies weakness in extremities], [denies balance issues] Objective:: Physical exam General: Alert and oriented x3, no acute distress, pleasant and cooperative, [on room air] Lungs: Respirations even and unlabored, symmetrical chest expansion Eyes: PERRL Musculoskeletal: Flexion and extension of lumbar [spine] somewhat guarded secondary to pain, strength in upper and lower extremities [5/5], [antalgic gait noted] Neurological: Speech clear, [butter wrapper equal], no gross sensory deficit Assessment:: Degenerative disc disease lumbar spine with lumbar radiculopathy symptoms, postlaminectomy syndrome lumbar spine Plan:: Patient is awaiting psychological evaluation for spinal cord stimulator trial. We will follow-up with him in the clinic at the end of March for medication refill. We will continue his Lyrica 150 mg 1 tablet p.o. twice daily and [place] 5 mg 1 tablet p.o. 4 times daily. We will give the patient a month medication today. Risks and benefits of the medication have been explained in detail to the patient. The patient has been advised to consult with his/her primary care provider and pharmacist regarding drug-drug interaction of medications currently prescribed. Patient has been prescribed a controlled substance after being counseled on the medication, medication safety, and possible side effects. CODY report has been obtained and reviewed prior to prescription and found to be appropriate. Opioid contract was reviewed and signed by the patient, and that they have agreed to all of the terms set forth by our compliance program. Patient has been instructed to contact the clinic with any concerns before the next appointment. Dr. Peguero has reviewed this note and agrees with this plan of care. This note was dictated using voice recognition software and make contain errors or omissions. [facility] History I have reviewed the patient's past medical history: Yes Medical History: Reports:: Asthma Denies:: Cancer, Diabetes Mellitus Type 1, Diabetes Mellitus Type 2, Internal Pacemaker, MRSA, Seizures *Have you ever received a pneumonia vaccine?: No *Have you received a flu vaccine this season?: No Other Medical History: Reports: Arthritis. Denies: Blood Transfusion Reaction Late
[2021-03-03 14:59] LABS: Amphetamine/Metha Screen,Urine Negative ng/ml (<1000)
[2021-03-03 15:00] LABS: Barbiturates Screen,Urine Negative ng/ml (<200)
[2021-03-03 15:01] LABS: Benzodiazepines Screen,Urine Negative ng/ml (<200); Cannabinoid Screen,Urine Negative ng/ml (<50)
[2021-03-03 15:02] LABS: Cocaine Screen,Urine Negative ng/ml (<300)
[2021-03-03 15:03] LABS: Methadone Screen,Urine Negative ng/ml (<300); Opiate Screen,Urine Positive ng/ml (<300)
[2021-03-03 15:04] LABS: Phencyclidine Screen,Urine Negative ng/ml (<25)
== END ==
PROVIDERS: Visit Provider Clinical Nurse Specialist Family Health
DX: M51.16 Intervertebral disc disorders with radiculopathy, lumbar region (principal); M96.1 Postlaminectomy syndrome, not elsewhere classified; Z79.891 Long term (current) use of opiate analgesic
CPT/HCPCS: 80305; 99212; G0463

== ENCOUNTER → 2021-04-14 11:10 | Outpatient (POV) | payer MEDICARE, MEDICAID, SELFPAY ==
[2021-04-14 11:35] VITALS: BP 138/68; PULSE 98; RESP 18; O2SAT 99; BMI 34.9
--- NOTE | 2021-04-14 12:02 | HMH.PAINSOAP ---
[facility] Pain Management SOAP Note Subjective:: Patient is a 66-year-old white male who presents today for medication refills. Patient is being worked up for possible spinal cord stimulator trial. The patient does have low back pain with radiation into bilateral lower extremities. He has had a mild procedure at the L3-L4 L4-L5 area. The procedure did help initially, however, the patient is now having worsening low back pain with radiation into bilateral legs and feet. He did try surgical intervention?postlaminectomy syndrome. He did not get any long-term relief. He has had multiple rounds of injective therapy in the clinic. We are currently prescribing the patient oral medications. He has had physical therapy for more than 6 weeks and continues with home stretching. He has also tried anti-inflammatories in the past. We do manage the patient with Lyrica 150 mg 1 tablet p.o. twice daily and [place] 5 mg 1 tablet p.o. 4 times daily. Patient's [place] [id number] has been reviewed and is appropriate. Drug screen is appropriate. Morphine equivalent is 20. He does rate his pain a 6 out of 10. Patient has not gotten any long-term relief with therapies provided in the clinic to this point. As result he did wish to proceed with possible spinal cord stimulation trial. He did undergo psychological evaluation and was considered an appropriate candidate. Review of Systems General: No recent weight changes, no fever, no sleep disturbances Respiratory: No cough, no shortness of air, no recurring pulmonary infections Cardiovascular/peripheral vascular: No chest pain, no palpitations, no edema, no shortness of breath Gastrointestinal: No new onset incontinence, normal bowel movements reported Genitourinary: No new onset incontinence Musculoskeletal: Low back pain with radiation into bilateral lower extremities Psychiatric: [Normal mood/affect] Neurological: [Denies weakness in extremities], [denies balance issues] Objective:: Physical exam General: Alert and oriented x3, no acute distress, pleasant and cooperative Lungs: Respirations even and unlabored, symmetrical chest expansion Eyes: PERRL Musculoskeletal: Flexion and extension of lumbar [spine] somewhat guarded secondary to pain, [antalgic gait noted] Neurological: Speech clear, no gross sensory deficit Assessment:: Degenerative disc disease lumbar spine with lumbar radiculopathy symptoms, postlaminectomy syndrome lumbar spine Plan:: We will refill the patient's [place] 5 mg 1 tablet p.o. 4 times daily and Lyrica 150 mg 1 tablet p.o. twice daily. We will schedule him for the trial for SCS therapy. He is not on anticoagulation therapy. Patient has been advised of the risks and benefits of the procedure. He would like to proceed. Risks and benefits of the medication have been explained in detail to the patient. The patient does understand the risk of dependence on the medication when given over a prolonged period. Patient has been advised of risks of oversedation with the prescribed medication. Narcan has been offered to the paitent in the event of oversedation. Patient has been advised that a family member should also be educated regarding administration of Narcan. The patient has been advised to consult with his/her primary care provider and pharmacist regarding drug-drug interaction of medications currently prescribed. Patient has been prescribed a controlled substance after being counseled on the medication, medication safety, and possible side effects. CODY report has been obtained and reviewed prior to prescription and found to be appropriate. Opioid contract was reviewed and signed by the patient, and that they have agreed to all of the terms set forth by our compliance program. Patient has been instructed to contact the clinic with any concerns before the next appointment. Dr. Peguero has reviewed this note and agrees with this plan of care. This note was dictated
== END ==
PROVIDERS: Visit Provider Clinical Nurse Specialist Family Health
DX: M51.16 Intervertebral disc disorders with radiculopathy, lumbar region (principal); M96.1 Postlaminectomy syndrome, not elsewhere classified
CPT/HCPCS: 99212; G0463

== ENCOUNTER → 2021-04-27 12:44 | Outpatient (CLI) | payer MEDICARE, MEDICAID, SELFPAY ==
[2021-04-27 13:57] LABS: Basophils # 0.1 K/mm3 (0-0.2); Basophils % 1.1 % (0.1-2.0); Eosinophils # 0.1 K/mm3 (0.0-0.4); Eosinophils % 1.4 % (0.1-12.0); Hematocrit 51.4 % (42.0-52.0); Lymphocytes # 2.8 K/mm3 (0.7-4.5); Lymphocytes % 32.7 % (10-50); Mean Corpuscular HGB Conc 33.1 g/dL (31.8-35.4); Mean Corpuscular Hemoglobin 30.9 pg (27.0-31.2); Mean Corpuscular Volume 93.3 fl (80-94); Mean Platelet Volume 9.6 fl (7.4-10.4); Monocytes # 0.6 K/mm3 (0.1-1.0); Monocytes % 6.9 % (1.7-9.3); Neutrophils # 4.9 K/mm3 (1.8-7.8); Platelet Count 266 K/mm3 (142-424); Red Cell Distribution Width 13.8 % (11.5-17.5); White Blood Count 8.5 K/mm3 (4.8-10.8)
[2021-04-27 15:03] LABS: Chloride 105 mmol/L (98-107); Sodium 141 mmol/L (136-145)
[2021-04-27 15:04] LABS: Potassium 4.6 mmoL/L (3.5-5.1)
[2021-04-27 15:06] LABS: Blood Urea Nitrogen 6 mg/dl (9-20); Estimated Glomerular Filt Rate 112 ml/min (>60); GFR (African American) 136 ML/MIN (>60)
[2021-04-27 15:07] LABS: Anion Gap 12.6 mEq/L (5-15); Calcium 9.9 mg/dl (8.4-10.2); Carbon Dioxide 28 mmol/L (22.0-30.0); Glucose 100 mg/dl (74-100)
== END ==
PROVIDERS: Visit Provider Anesthesiology
DX: Z01.812 Encounter for preprocedural laboratory examination (principal); Z11.52 Encounter for screening for COVID-19; M51.36 Other intervertebral disc degeneration, lumbar region
CPT/HCPCS: 36415; 80048; 85025; C9803; U0003; U0005

== ENCOUNTER → 2021-06-16 12:54 | Outpatient (CLI) | payer MEDICARE, MEDICAID, SELFPAY ==
[2021-06-16 15:43] LABS: Amphetamine/Metha Screen,Urine Negative ng/ml (<1000)
[2021-06-16 15:45] LABS: Barbiturates Screen,Urine Negative ng/ml (<200)
[2021-06-16 15:46] LABS: Benzodiazepines Screen,Urine Negative ng/ml (<200)
[2021-06-16 15:47] LABS: Cannabinoid Screen,Urine Negative ng/ml (<50); Cocaine Screen,Urine Negative ng/ml (<300)
[2021-06-16 15:48] LABS: Methadone Screen,Urine Negative ng/ml (<300); Opiate Screen,Urine Positive ng/ml (<300)
[2021-06-16 15:49] LABS: Phencyclidine Screen,Urine Negative ng/ml (<25)
[2021-07-04 19:11] LABS: Codeine Negative (Cutoff=100); Hydrocodone Positive (.); Hydromorphone Positive (.); Morphine Negative (Cutoff=100); Opiates Positive (.)
== END ==
PROVIDERS: Visit Provider Clinical Nurse Specialist Family Health
DX: Z79.891 Long term (current) use of opiate analgesic (principal)
CPT/HCPCS: 80305; 80361; 80365; G0480

== ENCOUNTER → 2021-06-16 13:05 | Outpatient (POV) | payer MEDICARE, MEDICAID, SELFPAY ==
[2021-06-16 13:14] VITALS: BP 153/84; PULSE 99; RESP 18; O2SAT 97; BMI 34.9
--- NOTE | 2021-06-16 13:36 | HMH.PAINSOAP ---
[facility] Pain Management SOAP Note Subjective:: Patient is a 66-year-old white male who is following up today for medication refills. The patient is awaiting spinal cord stimulator trial. He did undergo psychological evaluation and was considered an appropriate candidate to proceed with spinal cord stimulator trial. He does have low back pain into his bilateral lower extremities. He has had a mild procedure at L3-L4 L4-L5 area. He did get significant relief initially, however, pain did return. He does have a history of postlaminectomy syndrome as well. He has had multiple rounds of injective therapy within the clinic as well as physical therapy more than 6 weeks and continued home stretching. He has never gotten long-term relief with any therapies provided. As result he did wish to proceed with spinal cord stimulator trial. The patient was rescheduled by the clinic last week. Patient does have limited transportation and as result was unable to attend the trial due to short notice scheduling changed by the clinic. He would like to reschedule that today. We do manage the patient with [place] 5 mg 1 tablet p.o. 4 times daily. The patient also gets pregabalin 150 mg 1 tablet p.o. twice daily. The medicine does help, but he does feel that pregabalin does tend to wear off quickly to the point he is not getting significant relief throughout the day. He would like to discuss changing the dosage of the medication so that he is able to take the medication up to 4 times daily. Today, the patient rates his pain a 7 out of 10. His pain is made worse with standing and walking. He is unable to sit for prolonged periods due to pain as well. He is not having any changes in bowel or bladder habit. Review of Systems General: No recent weight changes, no fever, no sleep disturbances Respiratory: No cough, no shortness of air, no recurring pulmonary infections Cardiovascular/peripheral vascular: No chest pain, no palpitations, no edema, no shortness of breath Gastrointestinal: No new onset incontinence, normal bowel movements reported Genitourinary: No new onset incontinence Musculoskeletal: Low back pain with radiation into bilateral lower extremities Psychiatric: [Normal mood/affect] Neurological: [Denies weakness in extremities], [denies balance issues] Objective:: Physical exam General: Alert and oriented x3, no acute distress, pleasant and cooperative Lungs: Respirations even and unlabored, symmetrical chest expansion Eyes: PERRL Musculoskeletal: Flexion and extension of lumbar [spine] somewhat guarded secondary to pain, [antalgic gait noted] Neurological: Speech clear, no gross sensory deficit Assessment:: Degenerative disc disease lumbar spine with lumbar radiculopathy symptoms, postlaminectomy syndrome lumbar spine Plan:: We will schedule patient for the spinal cord stimulator trial to see if he he does get relief. He was considered an appropriate candidate with his psychological evaluation. We will continue his Fries 5 mg 1 tablet p.o. 4 times daily. We will change his Lyrica from 150 mg twice daily to 75 mg 1 tablet p.o. 4 times daily. We will see him back in the clinic after his spinal cord stimulator trial to see if he gets relief. He is not on any anticoagulation therapy and is not diabetic. Patient's Jesus #[id number] has been reviewed and is appropriate. Morphine equivalent is 20. Risks and benefits of the medication have been explained in detail to the patient. The patient does understand the risk of dependence on the medication when given over a prolonged period. Patient has been advised of risks of oversedation with the prescribed medication. Narcan has been offered to the paitent in the event of oversedation. Patient has been advised that a family member should also be educated regarding administration of Narcan. The patient has been advised to consult with his/her primary care provider and pharmacist reg
== END ==
PROVIDERS: Visit Provider Clinical Nurse Specialist Family Health
DX: M51.16 Intervertebral disc disorders with radiculopathy, lumbar region (principal); M96.1 Postlaminectomy syndrome, not elsewhere classified
CPT/HCPCS: 80305; 80361; 80365; 99212; G0463; G0480

== ENCOUNTER → 2021-07-14 13:43 | Outpatient (POV) | payer MEDICARE, MEDICAID, SELFPAY ==
[2021-07-14 13:59] VITALS: BP 146/60; PULSE 115; RESP 18; O2SAT 95; BMI 34.9
--- NOTE | 2021-07-14 14:10 | HMH.PAINSOAP ---
[facility] Pain Management SOAP Note Subjective:: Patient is a 66-year-old white male who presents today for follow-up. He is also here for medication refills. Patient rates his pain a 6 out of 10. He has having pain in his low back area with radiation into bilateral lower extremities. He has had a mild procedure L3-L4 L4-L5. He continues to have pain with standing and walking. He did undergo psychological evaluation was considered an appropriate candidate for intrathecal therapy. He would like to proceed with a spinal cord stimulator trial. Until his trial, he would like to undergo injective therapy to see if this does relieve the pain in his low back and hip. Last injection, lumbar epidural steroid injection at L4-L5 gave the patient about 70% relief for 1 to 2 weeks. He also gets [place] 5 mg 1 tablet p.o. 4 times daily and pregabalin 75 mg 1 tablet p.o. 4 times daily. Medications do give him up to 50 to 60% relief. Review of Systems General: No recent weight changes, no fever, no sleep disturbances Respiratory: No cough, no shortness of air, no recurring pulmonary infections Cardiovascular/peripheral vascular: No chest pain, no palpitations, no edema, no shortness of breath Gastrointestinal: No new onset incontinence, normal bowel movements reported Genitourinary: No new onset incontinence Musculoskeletal: Low back pain with radiation into hips and bilateral lower extremities Psychiatric: [Normal mood/affect] Neurological: [Denies weakness in extremities], [denies balance issues] Objective:: Physical exam General: Alert and oriented x3, no acute distress, pleasant and cooperative Lungs: Respirations even and unlabored, symmetrical chest expansion Eyes: PERRL Musculoskeletal: Flexion and extension of lumbar [spine] somewhat guarded secondary to pain, [antalgic gait noted] Neurological: Speech clear, no gross sensory deficit Assessment:: Degenerative disc disease lumbar spine with lumbar radiculopathy symptoms, spinal stenosis with neurogenic claudication symptoms Plan:: We will continue patient's [place] 5 mg 1 tablet p.o. 4 times daily and Lyrica 75 mg 1 tablet p.o. 4 times daily. We will give the patient a month medication. We will schedule him for the spinal cord stimulator trial. He has tried and failed conservative therapies and physical therapy for more than 6 weeks, home stretching and anti-inflammatories. He is also tried injective therapy. He does get relief with injections, but pain does return. In the meantime of awaiting the trial he would like to proceed with a lumbar epidural steroid injection at L4-L5 area. Patient is not on any anticoagulation therapy and is not diabetic. In the past he was scheduled for a spinal cord stimulator trial which was postponed due to transportation issues at the time. We will see the patient back in the clinic after his injection for further evaluation. Possible side effects of corticosteroids have been discussed with the patient. Risks and benefits of the procedure have been explained to the patient. Patient would like to proceed with the procedure. Patient has been instructed to contact the clinic with any concerns before the next appointment. Dr. Peguero has reviewed this note and agrees with this plan of care. This note was dictated using voice recognition software and make contain errors or omissions. Risks and benefits of the medication have been explained in detail to the patient. The patient does understand the risk of dependence on the medication when given over a prolonged period. Patient has been advised of risks of oversedation with the prescribed medication. Narcan has been offered to the paitent in the event of oversedation. Patient has been advised that a family member should also be educated regarding administration of Narcan. The patient has been advised to consult with his/her primary care provider and pharmacist regarding drug-drug interaction of m
== END ==
PROVIDERS: Visit Provider Clinical Nurse Specialist Family Health
DX: M51.16 Intervertebral disc disorders with radiculopathy, lumbar region (principal); M48.062 Spinal stenosis, lumbar region with neurogenic claudication
CPT/HCPCS: 99212; G0463

== ENCOUNTER → 2021-08-11 14:01 | Outpatient (POV) | payer MEDICARE, MEDICAID, SELFPAY ==
[2021-08-11 14:29] VITALS: BP 160/87; PULSE 71; RESP 18; O2SAT 95; BMI 34.9
--- NOTE | 2021-08-11 15:06 | P.CONS_ITS ---
[facility] Pain Management SOAP Note Subjective:: Patient is a very pleasant 66-year-old white male who presents today for follow- up and medication refills. He is currently being treated for degenerative disc disease of the lumbar spine with lumbar radiculopathy. He is currently taking [place] 5 mg 1 tablet p.o. 4 times daily and Lyrica 75 mg 1 tablet p.o. 4 times daily and he states that this current medication regimen is helping at least temporarily alleviate his chronic pain symptoms. He denies any adverse effects to this medication. He states that the above medication regimen also allows him to maintain functionality and overall mobility. He is scheduled to undergo spinal cord stimulator trial on August 22, 2020 for his back and leg pain. He states that he has previously undergone lumbar epidural steroid injections in the past but they only helped him for his severe right-sided hip pain. He is also requesting a repeat lumbar epidural steroid injection for his hip pain. He rates his pain today as a 6 out of 10. Objective:: General: Alert and oriented x3, no acute distress, pleasant and cooperative Lungs: Resps E/U, symmetric chest expansion Eyes: PERRL Musculoskeletal: limited flexion and extension of the lumbar spine secondary to pain. Deep tendon reflexes were normal in bilateral lower extremities. Motor exam was grossly intact in the bilateral lower extremities, antalgic gait noted. Positive straight leg raise on the right. Neurological: Speech is clear, automotive tire tester equal, no gross sensory deficits Assessment:: Degenerative disease of lumbar spine with lumbar radiculopathy Plan:: Discussed with the patient that he is scheduled to undergo spinal cord stimulator trial on August 22, 2020. We will also refill [place] 5 mg 1 tablet p.o. 4 times daily #120 and Lyrica 75 mg 1 tablet p.o. 4 times daily #120 for 1 month supply. I discussed with the patient that he may be able to experience coverage of his hip pain addition to his chronic low back and leg pain with the spinal cord stimulator trial as he received adequate pain relief with the epidural. However I discussed with him should he not experience any relief in his chronic hip pain symptoms we can reconsider performing a lumbar epidural steroid injection after the trial for this pain. We will follow-up with this patient on August 22 for the spinal cord stimulator trial as well as a 1 month follow-up for medication refills [facility] #[id number] and prior drug screens were reviewed and appropriate. [facility] History Medical History: Reports:: Asthma Denies:: Cancer, Diabetes Mellitus Type 1, Diabetes Mellitus Type 2, Internal Pacemaker, MRSA, Seizures *Have you ever received a pneumonia vaccine?: No *Have you received a flu vaccine this season?: No Other Medical History: Reports: Arthritis. Denies: Blood Transfusion Reaction Laterality Cases: Right: Arthroscopy Shoulder, Bilateral: Tonsillectomy Other Surgeries: Yes: Appendectomy, Other. No: Pacemaker Amputation: No Fractures: No - *Social History Smoking Status: Current every day smoker Tobacco Type: cigarettes # Packs/Day (cigarettes): 1 #Yrs smoked (if former smoker): 40 Alcohol Intake: never Substance Use Type: marijuana, other *Occupational Status:: unemployed Housing: house Household Members: none *Travel in the last 8 weeks: None Family Hx:: Adopted
== END ==
PROVIDERS: Visit Provider Anesthesiology Pain Medicine
DX: M51.16 Intervertebral disc disorders with radiculopathy, lumbar region (principal)
CPT/HCPCS: 99212; G0463

== ENCOUNTER 2021-08-22 09:08 | Day surgery (SDC) | payer MEDICARE, MEDICAID, SELFPAY ==
[2021-08-18 10:50] VITALS: BMI 34.9
[2021-08-22] VITALS (12 sets, daily range): BP systolic 113–174; BP diastolic 61–94; PULSE 67–94; RESP 16–20; TEMP 36.8–37.2; O2SAT 92–97
[2021-08-22 09:28] LABS: Coronavirus 19, PCR Not Detected (NotDetected); Influenza A, PCR Not Detected (NotDetected); Influenza B, PCR Not Detected (NotDetected)
[2021-08-22 09:44] LABS: Basophils # 0.1 K/mm3 (0-0.2); Basophils % 1.5 % (0.1-2.0); Eosinophils # 0.2 K/mm3 (0.0-0.4); Eosinophils % 1.8 % (0.1-12.0); Hematocrit 52.9 % (42.0-52.0); Hemoglobin 17.2 g/dL (14.1-18.0); Lymphocytes # 2.8 K/mm3 (0.7-4.5); Lymphocytes % 31.3 % (10-50); Mean Corpuscular HGB Conc 32.5 g/dL (31.8-35.4); Mean Corpuscular Volume 95.5 fl (80-94); Mean Platelet Volume 9.1 fl (7.4-10.4); Monocytes # 0.6 K/mm3 (0.1-1.0); Monocytes % 6.2 % (1.7-9.3); Neutrophils # 5.3 K/mm3 (1.8-7.8); Neutrophils % 59.2 % (37.0-80.0); Platelet Count 276 K/mm3 (142-424); Red Blood Count 5.54 M/mm3 (4.60-6.20); Red Cell Distribution Width 13.2 % (11.5-17.5)
[2021-08-22 09:54] LABS: Chloride 105 mmol/L (98-107); Potassium 4.3 mmoL/L (3.5-5.1); Sodium 138 mmol/L (136-145)
[2021-08-22 09:57] LABS: Anion Gap 12.3 mEq/L (5-15); Blood Urea Nitrogen 14 mg/dl (9-20); Carbon Dioxide 25 mmol/L (22.0-30.0); Creatinine Clearance Estimated 104 mL/min (50-200); Estimated Glomerular Filt Rate 84 ml/min (>60); GFR (African American) 102 ML/MIN (>60); Glucose 125 mg/dl (74-100)
--- NOTE | 2021-08-22 13:14 | P.OP_ITS ---
Date of procedure: 08/22/21 Pre-op Diagnosis:: Degenerative disc disease of lumbar spine with lumbar radiculopathy symptoms Post-op Diagnosis:: Same Procedure performed:: Spinal cord stimulator trial with epidural lead placement x2 Surgeon:: Romeo Peguero MD DIRECTOR OF BUSINESS SYSTEMS:: Other Anesthesia: local Estimated blood loss (mL): 1 Clinical Note:: Patient is a pleasant 66-year-old white male who we are treating for low back pain with lumbar radiculopathy symptoms. He has failed all previous conservative therapies including injections, oral medications, physical therapy, minimally invasive lumbar decompression and he is not a surgical candidate. Most of his pain is in the low back radiating to the right hip and right leg and occasionally down the left leg. He has had a successful psychological evaluation. He presents for spinal cord stimulator trial today. Operative findings:: None Operative note:: Informed consent was obtained the risk and benefits of the procedure were explained to the patient. Patient was taken to the procedure room. Back was prepped using ChloraPrep. The skin and subtenons tissues were anesthetized using lidocaine. A 17-gauge epidural needle was inserted and advanced into the L1-L2 interspace. After confirmation needle placement in the epidural space stimulating lead was inserted and advanced very easily to the T7-T8-T9 vertebral body. A second needle was inserted and advanced again into the L1-L2 interspace. Again after confirmation of needle placement in the epidural space a second stimulating lead was inserted and advanced very easily again to the T7-T8-T9 vertebral body. Lead placement was checked in AP and lateral views. The stylets and needles were removed. The leads were secured in place. The patient was taken recovery in stable condition. Patient tolerated procedure well with no complications. Patient was programmed by the [employer] maintenance representative with good stimulation in all areas of pain. Patient was discharged home neurologically intact with good relief of pain symptoms. Plan and disposition: We will follow-up with this patient in 1 week for lead pull. We will continually follow-up with him every day and make adjustments if needed. If he has any problems or questions he is to call us back in the pain clinic. Condition: stable Disposition: PACU Complications:: None
== END 2021-08-22 14:33 | disposition home or self-care (01) ==
PROVIDERS: PCP Family Medicine; Visit Provider Anesthesiology
DX: M51.16 Intervertebral disc disorders with radiculopathy, lumbar region (principal); J45.909 Unspecified asthma, uncomplicated; M19.90 Unspecified osteoarthritis, unspecified site; Z90.49 Acquired absence of other specified parts of digestive tract; F12.90 Cannabis use, unspecified, uncomplicated; Z79.899 Other long term (current) drug therapy
CPT/HCPCS: 63650 ×2; 36415; 80048; 85025; 96374; C1778; C9803; J3370; U0003; U0005

== ENCOUNTER → 2021-08-29 13:16 | Outpatient (POV) | payer MEDICARE, MEDICAID, SELFPAY ==
[2021-08-29 13:35] VITALS: BP 185/97; PULSE 107; RESP 20; TEMP 36; O2SAT 96; BMI 38.0
--- NOTE | 2021-08-29 15:01 | HMH.PMPROC ---
- Procedure Date: 08/29/21 Time: 15:01 Anesthesiologist:: Wero Harmon CRNA Complications:: None Pre-procedure Diagnosis:: Disc disease lumbar spine multiple levels. Lumbar radiculopathy symptoms. Post-procedure Diagnosis:: Same Indications for Procedure:: Patient is a pleasant 66-year-old white male who returns to our procedure clinic today for spinal cord stimulator lead pull after trial. Patient reporting minimal if any relief in regards to the spinal stimulator trial. Patient continued to have low back pain as well as bilateral hip and leg pain. He rates the pain 7/10. Patient describes the pain as constant, dull, aching. Procedure Details:: Under sterile conditions the spinal cord stimulator leads were pulled without difficulty. There were no complications. Patient tolerated procedure without difficulty. He was discharged home in good condition. Plan and Disposition:: Patient will return to the clinic in 1 month for follow-up evaluation.
== END ==
PROVIDERS: PCP Family Medicine; Visit Provider Nurse Anesthetist, Certified Registered
DX: M51.16 Intervertebral disc disorders with radiculopathy, lumbar region (principal)
CPT/HCPCS: 99212; G0463

== ENCOUNTER → 2021-09-08 14:05 | Outpatient (POV) | payer MEDICARE, MEDICAID, SELFPAY ==
[2021-09-08 14:52] VITALS: BP 150/86; PULSE 95; RESP 18; TEMP 36.2; O2SAT 95; BMI 38.0
--- NOTE | 2021-09-08 15:53 | P.CONS_ITS ---
[facility] Pain Management SOAP Note Subjective:: Patient is a pleasant 50-year-old male who is here for medication refill and follow-up. Patient is currently being treated for degenerative disc disease of the lumbar spine with lumbar radiculopathy symptoms. Patient is being managed with Lyrica 75 mg 4 times a day and [place] 5 mg 4 times a day. Patient denies any side effects from the medications. Patient denies any changes to the location and type of pain. Patient states that this is adequately helping manage their pain. Rates pain as 6 out of 10. [facility] number [id number] with an active morphine equivalent 20. Drug screens have been reviewed and appropriate. We also recently tried a [employer] spinal cord stimulator with the patient. After the 1 week trial, patient had no relief of symptoms. We took out his leads on August 29, 2021. Review of Systems: General: No recent weight changes, no fever, no sleep disturbances Respiratory: No cough, no shortness of air, no recurring pulmonary infections Cardiovascular/peripheral vascular: No chest pain, no palpitations, no edema, no shortness of breath Gastrointestinal: No new onset incontinence, normal bowel movements reported Genitourinary: No new onset incontinence Musculoskeletal: Low back pain Psychiatric: [Normal mood/affect] Neurological: [Denies weakness in extremities], [denies balance issues] Objective:: Physical Exam: General: Alert and oriented x3, no acute distress, pleasant and cooperative, [on room air] Lungs: Respirations even and unlabored, symmetrical chest expansion Eyes: PERRL Musculoskeletal: Flexion and extension of lumbar [spine] somewhat guarded secondary to pain, [antalgic gait noted] Neurological: Speech clear, no gross sensory deficit Assessment:: Degenerative disc disease of the lumbar spine with lumbar radiculopathy symptoms Plan:: We will continue the patient's Lyrica 75 mg 4 times a day and [place] 5 mg 4 times a day. We will provide the patient with 1 month of refills. We would like to see the patient back in 1 month for follow-up and reevaluation of chronic pain syndrome. Patient has been advised of risks of oversedation with the prescribed medication. Narcan has been offered to the patient in the event of oversedation. Patient has been advised that a family member should also be educated regarding administration of Narcan. Patient has been instructed to contact the clinic with any concerns before the next appointment. Dr. Peguero has reviewed this note and agrees with this plan of care. This note was dictated using voice recognition software and make contain errors or omissions. [facility] History Medical History: Reports:: Asthma Denies:: Cancer, Diabetes Mellitus Type 1, Diabetes Mellitus Type 2, Internal Pacemaker, MRSA, Seizures *Have you ever received a pneumonia vaccine?: No *Have you received a flu vaccine this season?: No Other Medical History: Reports: Arthritis. Denies: Blood Transfusion Reaction Laterality Cases: Right: Arthroscopy Shoulder, Bilateral: Tonsillectomy Other Surgeries: Yes: Appendectomy, Other. No: Pacemaker Amputation: No Fractures: No - *Social History Smoking Status: Current every day smoker Tobacco Type: cigarettes # Packs/Day (cigarettes): 1 #Yrs smoked (if former smoker): 40 Alcohol Intake: never Substance Use Type: marijuana, other *Occupational Status:: other Housing: house Household Members: none *Travel in the last 8 weeks: None Family Hx:: Adopted
== END ==
PROVIDERS: Visit Provider Student in an Organized Health Care Education/Training Program
DX: M51.16 Intervertebral disc disorders with radiculopathy, lumbar region (principal)
CPT/HCPCS: 80305; 80361; 80365; 99212; G0463; G0480

== ENCOUNTER → 2021-09-08 14:41 | Outpatient (CLI) | payer MEDICARE, MEDICAID, SELFPAY ==
[2021-09-08 22:05] LABS: Amphetamine/Metha Screen,Urine Negative ng/ml (<1000); Barbiturates Screen,Urine Negative ng/ml (<200)
[2021-09-08 22:06] LABS: Benzodiazepines Screen,Urine Negative ng/ml (<200)
[2021-09-08 22:07] LABS: Cannabinoid Screen,Urine Negative ng/ml (<50)
[2021-09-08 22:14] LABS: Cocaine Screen,Urine Negative ng/ml (<300); Methadone Screen,Urine Negative ng/ml (<300)
[2021-09-08 22:15] LABS: Opiate Screen,Urine Positive ng/ml (<300)
[2021-09-08 22:16] LABS: Phencyclidine Screen,Urine Negative ng/ml (<25)
[2021-09-15 13:32] LABS: Codeine Negative (Cutoff=100); Hydrocodone Positive (.); Hydromorphone Positive (.); Morphine Negative (Cutoff=100); Opiates Positive (.)
== END ==
PROVIDERS: Anesthesiology Pain Medicine; PCP Family Medicine; Visit Provider Anesthesiology
DX: Z79.891 Long term (current) use of opiate analgesic (principal)
CPT/HCPCS: 80305; 80361; 80365; G0480

== ENCOUNTER → 2021-10-27 13:05 | Outpatient (POV) | payer MEDICARE, MEDICAID, SELFPAY ==
[2021-10-27 13:25] VITALS: BP 150/99; PULSE 104; RESP 18; TEMP 36.8; O2SAT 95; BMI 36.5
--- NOTE | 2021-10-27 13:36 | HMH.PAINSOAP ---
[facility] Pain Management SOAP Note Subjective:: Patient is a pleasant 66-year-old male who is here for medication refill and follow-up. Patient is currently being treated for degenerative disc disease of the lumbar spine with lumbar radiculopathy symptoms. Patient is being managed with Lyrica 75 mg 4 times a day and [place] 5 mg 4 times a day. Patient denies any side effects from the medications. Patient denies any changes to the location and type of pain. Patient states that this is adequately helping manage their pain. Rates pain as 5 out of 10. [facility] number [id number] with an active morphine equivalent 20. Drug screens have been reviewed and appropriate. We also recently tried a [employer] spinal cord stimulator with the patient. Patient had minimal relief after the trial. We took out his leads on August 29, 2021 Patient continues to do therapy sessions with Lashawn, one of our social workers. Patient states that he has been having some success with this. Review of Systems: General: No recent weight changes, no fever, no sleep disturbances Respiratory: No cough, no shortness of air, no recurring pulmonary infections Cardiovascular/peripheral vascular: No chest pain, no palpitations, no edema, no shortness of breath Gastrointestinal: No new onset incontinence, normal bowel movements reported Genitourinary: No new onset incontinence Musculoskeletal: Low back pain Psychiatric: [Normal mood/affect] Neurological: [Denies weakness in extremities], [denies balance issues] Objective:: Physical Exam: General: Alert and oriented x3, no acute distress, pleasant and cooperative Lungs: Respirations even and unlabored, symmetrical chest expansion Eyes: PERRL Musculoskeletal: Flexion and extension of lumbar [spine] somewhat guarded secondary to pain, [antalgic gait noted] Neurological: Speech clear, no gross sensory deficit Assessment:: Degenerative disc disease of lumbar spine with lumbar radiculopathy symptoms Plan:: We will continue the patient's Lyrica 75 mg 4 times a day and [place] 5 mg 4 times a day. We will provide the patient with 1 month of refills. We would like to see the patient back in 1 month for follow-up and reevaluation of chronic pain syndrome. Patient has been advised of risks of oversedation with the prescribed medication. Narcan has been offered to the patient in the event of oversedation. Patient has been advised that a family member should also be educated regarding administration of Narcan. Patient has been instructed to contact the clinic with any concerns before the next appointment. Dr. Peguero has reviewed this note and agrees with this plan of care. This note was dictated using voice recognition software and make contain errors or omissions. [facility] History Medical History: Reports:: Asthma Denies:: Cancer, Diabetes Mellitus Type 1, Diabetes Mellitus Type 2, Internal Pacemaker, MRSA, Seizures *Have you ever received a pneumonia vaccine?: No *Have you received a flu vaccine this season?: No Other Medical History: Reports: Arthritis. Denies: Blood Transfusion Reaction Laterality Cases: Right: Arthroscopy Shoulder, Bilateral: Tonsillectomy Other Surgeries: Yes: Appendectomy, Other. No: Pacemaker Amputation: No Fractures: No - *Social History Smoking Status: Current every day smoker Tobacco Type: cigarettes # Packs/Day (cigarettes): 1 #Yrs smoked (if former smoker): 40 Alcohol Intake: never Substance Use Type: marijuana, other *Occupational Status:: retired Housing: house Household Members: none *Travel in the last 8 weeks: None Family Hx:: Adopted
== END ==
PROVIDERS: Visit Provider Student in an Organized Health Care Education/Training Program
DX: M51.16 Intervertebral disc disorders with radiculopathy, lumbar region (principal)
CPT/HCPCS: 99212; G0463

== ENCOUNTER → 2021-11-24 13:12 | Outpatient (POV) | payer MEDICARE, MEDICAID, SELFPAY ==
[2021-11-24 13:25] VITALS: BP 125/92; PULSE 73; RESP 18; TEMP 36.8; O2SAT 94; BMI 35.2
--- NOTE | 2021-11-24 13:36 | HMH.PAINSOAP ---
[facility] Pain Management SOAP Note Subjective:: Patient is a pleasant 66-year-old male who is here for medication refill and follow-up. Patient is currently being treated for degenerative disc disease of the lumbar spine with lumbar radiculopathy symptoms. Patient is being managed with Lyrica 75 mg 4 times a day and [place] 5 mg 4 times a day. Patient denies any side effects from the medications. Patient denies any changes to the location and type of pain. Patient states that this is adequately helping manage their pain. Rates pain as 5 out of 10. [facility] number [id number] with an active morphine equivalent 20. Drug screens have been reviewed and appropriate. Patient has also failed a [employer] spinal cord stimulator trial. We took out his leads on August 29, 2021. Patient continues to see Lashawn, one of our social workers, for therapy. Patient states that he has been having some success with this. He was also recently started on duloxetine. He has been taking this medication for about 6 weeks now. He feels like this medication is helping some of his mood and pain. He wants to slowly taper himself down from his medications. Review of Systems: General: No recent weight changes, no fever, no sleep disturbances Respiratory: No cough, no shortness of air, no recurring pulmonary infections Cardiovascular/peripheral vascular: No chest pain, no palpitations, no edema, no shortness of breath Gastrointestinal: No new onset incontinence, normal bowel movements reported Genitourinary: No new onset incontinence Musculoskeletal: Low back pain Psychiatric: [Normal mood/affect] Neurological: [Denies weakness in extremities], [denies balance issues] Objective:: Physical Exam: General: Alert and oriented x3, no acute distress, pleasant and cooperative Lungs: Respirations even and unlabored, symmetrical chest expansion Eyes: PERRL Musculoskeletal: Flexion and extension of lumbar [spine] somewhat guarded secondary to pain, [antalgic gait noted] Neurological: Speech clear, no gross sensory deficit Assessment:: Degenerative disc disease of the lumbar spine with lumbar radiculopathy symptoms Plan:: We will continue the patient's Lyrica 75 mg 4 times a day and [place] 5 mg 4 times a day. We will provide the patient with 1 month of refills. We would like to see the patient back in 1 month for follow-up and reevaluation of chronic pain syndrome. Patient has been advised of risks of oversedation with the prescribed medication. Narcan has been offered to the patient in the event of oversedation. Patient has been advised that a family member should also be educated regarding administration of Narcan. Patient has been instructed to contact the clinic with any concerns before the next appointment. Dr. Peguero has reviewed this note and agrees with this plan of care. This note was dictated using voice recognition software and make contain errors or omissions. [facility] History Medical History: Reports:: Asthma Denies:: Cancer, Diabetes Mellitus Type 1, Diabetes Mellitus Type 2, Internal Pacemaker, MRSA, Seizures *Have you ever received a pneumonia vaccine?: No *Have you received a flu vaccine this season?: No Other Medical History: Reports: Arthritis. Denies: Blood Transfusion Reaction Laterality Cases: Right: Arthroscopy Shoulder, Bilateral: Tonsillectomy Other Surgeries: Yes: Appendectomy, Other. No: Pacemaker Amputation: No Fractures: No - *Social History Smoking Status: Current every day smoker Tobacco Type: cigarettes # Packs/Day (cigarettes): 1 #Yrs smoked (if former smoker): 40 Alcohol Intake: never Substance Use Type: marijuana, other *Occupational Status:: retired Housing: house Household Members: none *Travel in the last 8 weeks: None Family Hx:: Adopted
== END ==
PROVIDERS: Visit Provider Student in an Organized Health Care Education/Training Program
DX: M51.16 Intervertebral disc disorders with radiculopathy, lumbar region (principal)
CPT/HCPCS: 80305; 80361; 80365; 99212; G0463; G0480

== ENCOUNTER → 2021-11-24 13:34 | Outpatient (CLI) | payer MEDICARE, MEDICAID, SELFPAY ==
[2021-11-24 18:31] LABS: Amphetamine/Metha Screen,Urine Negative ng/ml (<1000); Barbiturates Screen,Urine Negative ng/ml (<200)
[2021-11-24 18:32] LABS: Benzodiazepines Screen,Urine Negative ng/ml (<200); Cannabinoid Screen,Urine Negative ng/ml (<50)
[2021-11-24 18:33] LABS: Cocaine Screen,Urine Negative ng/ml (<300)
[2021-11-24 18:34] LABS: Methadone Screen,Urine Negative ng/ml (<300); Opiate Screen,Urine Positive ng/ml (<300)
[2021-11-24 18:35] LABS: Phencyclidine Screen,Urine Negative ng/ml (<25)
[2021-12-06 22:08] LABS: Codeine Negative (Cutoff=100); Hydrocodone Positive (.); Hydromorphone Positive (.); Morphine Negative (Cutoff=100); Opiates Positive (.)
== END ==
PROVIDERS: PCP Family Medicine; Visit Provider Student in an Organized Health Care Education/Training Program
DX: Z79.891 Long term (current) use of opiate analgesic (principal)
CPT/HCPCS: 80305; 80361; 80365; G0480

== ENCOUNTER → 2021-12-26 11:22 | Outpatient (POV) | payer MEDICARE, MEDICAID, SELFPAY ==
[2021-12-26 12:47] VITALS: BP 153/90; PULSE 96; RESP 20; TEMP 36.6; O2SAT 94; BMI 34.9
--- NOTE | 2021-12-26 13:04 | HMH.PAINSOAP ---
[facility] Pain Management SOAP Note Subjective:: Is a pleasant 66-year-old male who is here for medication refill and follow-up. Patient is currently being treated for degenerative disc disease of lumbar spine with lumbar radiculopathy symptoms. Today he states his pain is a 5 out of 10. States the pain is in his back and bilateral lower extremities. He describes the pain as a burning, numbing, stabbing, shooting to his legs feeling. Patient is being managed with Lyrica 75 mg 4 times a day and [place] 5 mg 4 times a day. He denies any side effects from this medication. He denies any changes to the location and type of pain. Patient has had injective therapy in the past with significant relief and would like to discuss in another injection today. Patient states that this is adequately helping manage his pain. His Jesus is [id number]. It has been reviewed and is appropriate. Patient is continuing to see Lashawn, one of our social workers for therapy. He states that this has been very helpful during this time. Review of Systems: General: No recent weight changes, no fever, no sleep disturbances Respiratory: No cough, no shortness of air, no recurring pulmonary infections Cardiovascular/peripheral vascular: No chest pain, no palpitations, no edema, no shortness of breath Gastrointestinal: No new onset incontinence, normal bowel movements reported Genitourinary: No new onset incontinence Musculoskeletal: Low back pain Psychiatric: [Normal mood/affect] Neurological: [Denies weakness in extremities], [denies balance issues] Objective:: Physical Exam: General: Alert and oriented x3, no acute distress, pleasant and cooperative Lungs: Respirations even and unlabored, symmetrical chest expansion Eyes: PERRL Musculoskeletal: Flexion and extension of lumbar [spine] somewhat guarded secondary to pain, [antalgic gait noted] Neurological: Speech clear, no gross sensory deficit Assessment:: Degenerative disc disease of lumbar spine with lumbar radiculopathy symptoms Plan:: Provide the patient's Lyrica 75 mg 4 times a day and [place] 5 mg 4 times a day. We will provide the patient with 1 month of refills. Patient does have significant low back pain. There was point tenderness on exam in today's visit. I have discussed with him regarding a lumbar epidural steroid injection. He has had these in the past with significant relief. Risk and benefits have been discussed with the patient. He would like to proceed forward with this injection. We will schedule him today for the injection. Patient has been instructed to contact the clinic with any concerns before the next appointment. Dr. Peguero has reviewed this note and agrees with this plan of care. This note was dictated using voice recognition software and make contain errors or omissions. [facility] History I have reviewed the patient's past medical history: Yes Medical History: Reports:: Asthma Denies:: Cancer, Diabetes Mellitus Type 1, Diabetes Mellitus Type 2, Internal Pacemaker, MRSA, Seizures *Have you ever received a pneumonia vaccine?: Yes *Have you received a flu vaccine this season?: No Other Medical History: Reports: Arthritis. Denies: Blood Transfusion Reaction Laterality Cases: Right: Arthroscopy Shoulder, Bilateral: Tonsillectomy Other Surgeries: Yes: Appendectomy, Other. No: Pacemaker Amputation: No Fractures: No - *Social History Smoking Status: Current every day smoker Tobacco Type: cigarettes # Packs/Day (cigarettes): 1 #Yrs smoked (if former smoker): 40 Alcohol Intake: never Substance Use Type: marijuana, other *Occupational Status:: other Housing: house Household Members: none *Travel in the last 8 weeks: [facility] the [facility] Family Hx:: Adopted
== END ==
PROVIDERS: Visit Provider Student in an Organized Health Care Education/Training Program
DX: M51.16 Intervertebral disc disorders with radiculopathy, lumbar region (principal)
CPT/HCPCS: 99212; G0463

== ENCOUNTER → 2022-01-23 14:32 | Outpatient (POV) | payer MEDICARE, MEDICAID, SELFPAY ==
[2022-01-23 14:38] VITALS: BP 171/99; PULSE 99; RESP 20; BMI 34.9
--- NOTE | 2022-01-23 14:44 | HMH.PAINSOAP ---
[facility] Pain Management SOAP Note Subjective:: Patient is a pleasant 67-year-old male who presents today for medication refill and follow-up. We are currently treating the patient for degenerative disc disease of lumbar spine with lumbar radiculopathy symptoms. Today he rates his pain a 6 out of 10. He states his pain is and he has mid back that radiates down to his hips and his lower extremities. He describes the pain as a burning, numbing, stabbing, shooting pain that is worse with increased activity. We currently are prescribing him Lyrica 75 mg 4 times a day and [place] 5 mg 4 times a day. Patient denies any side effects from this medication. He denies any changes to the location or type of pain he experiences. Patient states these medications are adequately managing his pain. Patient is scheduled to have a epidural injection at the end of this month. He has had injective therapy in the past that provided significant relief. His Jesus is [id number]. It has been reviewed and appropriate. Review of Systems: General: No recent weight changes, no fever, no sleep disturbances Respiratory: No cough, no shortness of air, no recurring pulmonary infections Cardiovascular/peripheral vascular: No chest pain, no palpitations, no edema, no shortness of breath Gastrointestinal: No new onset incontinence, normal bowel movements reported Genitourinary: No new onset incontinence Musculoskeletal: Mid back pain, bilateral hip pain, bilateral leg pain Psychiatric: [Normal mood/affect] Neurological: [Denies weakness in extremities], [denies balance issues] Objective:: Physical Exam: General: Alert and oriented x3, no acute distress, pleasant and cooperative Lungs: Respirations even and unlabored, symmetrical chest expansion Eyes: PERRL Musculoskeletal: Flexion and extension of lumbar [spine] somewhat guarded secondary to pain, [antalgic gait noted] Neurological: Speech clear, no gross sensory deficit Assessment:: Degenerative disc disease of lumbar spine with lumbar radiculopathy symptoms, bilateral hip pain Plan:: Patient is still currently experiencing pain in his back that radiates down bilateral extremities. He is already scheduled for an epidural injection at the end of the month. I will refill his [place] 5 mg 4 times a day and Lyrica 75 mg 4 times a day. I will give a 1 month supply of this medication. Patient will follow-up in 1 month. Patient will return to clinic in 1 month for medication refill and reevaluation of symptoms. Patient has been instructed to contact the clinic with any concerns before the next appointment. Dr. Peguero has reviewed this note and agrees with this plan of care. This note was dictated using voice recognition software and make contain errors or omissions. [facility] History I have reviewed the patient's past medical history: Yes Medical History: Reports:: Asthma Denies:: Cancer, Diabetes Mellitus Type 1, Diabetes Mellitus Type 2, Internal Pacemaker, MRSA, Seizures *Have you ever received a pneumonia vaccine?: No *Have you received a flu vaccine this season?: No Other Medical History: Reports: Arthritis. Denies: Blood Transfusion Reaction Laterality Cases: Right: Arthroscopy Shoulder, Bilateral: Tonsillectomy Other Surgeries: Yes: Appendectomy, Other. No: Pacemaker Amputation: No Fractures: No - *Social History Smoking Status: Current every day smoker Tobacco Type: cigarettes # Packs/Day (cigarettes): 1 #Yrs smoked (if former smoker): 40 Alcohol Intake: never Substance Use Type: marijuana, other *Occupational Status:: other Housing: house Household Members: none *Travel in the last 8 weeks: None Family Hx:: Adopted
== END ==
PROVIDERS: PCP Family Medicine; Visit Provider Nurse Practitioner Family
DX: M51.16 Intervertebral disc disorders with radiculopathy, lumbar region (principal); M25.551 Pain in right hip; M25.552 Pain in left hip
CPT/HCPCS: 99212; G0463

== ENCOUNTER → 2022-01-23 14:56 | Outpatient (CLI) | payer MEDICARE, MEDICAID, SELFPAY ==
[2022-01-23 17:25] LABS: Benzodiazepines Screen,Urine Negative ng/ml (<200)
[2022-01-23 17:26] LABS: Amphetamine/Metha Screen,Urine Negative ng/ml (<1000); Barbiturates Screen,Urine Negative ng/ml (<200)
[2022-01-23 17:27] LABS: Cannabinoid Screen,Urine Negative ng/ml (<50)
[2022-01-23 17:28] LABS: Cocaine Screen,Urine Negative ng/ml (<300); Methadone Screen,Urine Negative ng/ml (<300)
[2022-01-23 17:29] LABS: Opiate Screen,Urine Positive ng/ml (<300)
[2022-01-23 17:30] LABS: Phencyclidine Screen,Urine Negative ng/ml (<25)
[2022-01-30 22:10] LABS: Codeine Negative (Cutoff=100); Hydrocodone Positive (.); Hydromorphone Positive (.); Morphine Negative (Cutoff=100); Opiates Positive (.)
== END ==
PROVIDERS: PCP Family Medicine; Visit Provider Student in an Organized Health Care Education/Training Program
DX: Z79.891 Long term (current) use of opiate analgesic (principal)
CPT/HCPCS: 80305; 80361; 80365; 99212; G0463; G0480

== ENCOUNTER 2022-02-07 10:51 | Day surgery (SDC) | payer MEDICARE, MEDICAID, SELFPAY ==
[2022-02-07 10:58] VITALS: BP 136/94; BP 152/99; PULSE 64; PULSE 95; RESP 18; TEMP 36.5; O2SAT 94; O2SAT 97; BMI 34.9
--- NOTE | 2022-02-07 12:02 | P.PCN_ITS ---
- Procedure Date: 02/07/22 Time: 12:02 Anesthesiologist:: Romeo Peguero MD Complications:: None Pre-procedure Diagnosis:: Degenerative disc disease of lumbar spine with lumbar radiculopathy symptoms with postlaminectomy syndrome lumbar spine Post-procedure Diagnosis:: Same Indications for Procedure:: Patient is a pleasant 67-year-old white male who we are treating for low back pain with lumbar radicular symptoms and right-sided hip pain. He gets some relief from epidural steroid injections. He did not get any relief from a previous intra-articular hip injection. Most of his pain is in the low back and into the right hip. We will do a lumbar epidural steroid injection today to see if this helps with his pain symptoms. Procedure Details:: Informed consent was obtained and the risk and benefits of the procedure was explained to the patient. The patient was taken to the procedure room. The patient was placed prone on the procedure table. The patient was prepped and draped in sterile fashion. C-arm fluoroscopy was used to view the lumbar spine. Skin and subcutaneous tissues were anesthetized using lidocaine. I placed an 18-gauge epidural needle and advanced into the L4-L5 interspace using fluoroscopic guidance and [id number] to air. After confirmation of needle placement in the epidural space with dye I injected 2 mL of lidocaine 1.5% with Depo-Medrol 80 mg. Patient tolerated the procedure well with no complications. Plan and Disposition:: We will follow-up with him in 2 weeks. Will reevaluate symptoms at that time. He is interested in intrathecal therapy. We will seek approval for intrathecal pump trial as he has previously failed spinal cord stimulation. Previously failed surgery and gets temporary relief from injections. I did tell him he will need to be off his [place] for at least 48 hours prior to intrathecal pump trial.
== END 2022-02-07 11:53 | disposition home or self-care (01) ==
LOC: SC.PAINP 10:52
PROVIDERS: PCP Family Medicine; Visit Provider Anesthesiology
DX: M51.16 Intervertebral disc disorders with radiculopathy, lumbar region (principal); M96.1 Postlaminectomy syndrome, not elsewhere classified
CPT/HCPCS: 62323; J1040; Q9966

== ENCOUNTER → 2022-02-23 13:00 | Outpatient (POV) | payer MEDICARE, MEDICAID, SELFPAY ==
[2022-02-23 13:17] VITALS: BP 144/86; PULSE 100; RESP 20; BMI 34.9
--- NOTE | 2022-02-23 13:45 | EXP.PAIN.SOA ---
[facility] Pain Management SOAP Note Subjective:: Patient is a pleasant 67-year-old male that presents today for follow-up of lumbar epidural at L4-L5 on 02/07/2022. We are currently treating the patient for degenerative disc disease of lumbar spine with lumbar radiculopathy symptoms, postlaminectomy syndrome lumbar spine. Patient states he has gotten no relief following this injection. Today he rates his pain a 6 out of 10 and states it is all in his low back that radiates into his bilateral lower extremities. He describes this as a burning, numbing, stabbing and shooting pain that is worse with increased activity. He is prescribed Lyrica 75 mg 4 times a day and [place] 5 mg 4 times a day. Patient denies any side effects from this medication. He does state he feels like he has built up a tolerance to these medication and is no longer getting good pain relief at the current dosage. Patient states he does not need a refill on these medications at this time. He is prescribed a compounding cream that he says provides some improvement of his symptoms. He is requesting a refill of the compounding cream at today's visit. Patient has tried and failed oral medications, topical medications, injective therapy, physical therapy, at home exercises and stretches for longer than 6 weeks. Patient is interested in the pain pump trial. He has previously failed a spinal cord stimulator trial. His Jesus is [id number]. It is been reviewed and appropriate. Review of Systems: General: No recent weight changes, no fever, no sleep disturbances Respiratory: No cough, no shortness of air, no recurring pulmonary infections Cardiovascular/peripheral vascular: No chest pain, no palpitations, no edema, no shortness of breath Gastrointestinal: No new onset incontinence, normal bowel movements reported Genitourinary: No new onset incontinence Musculoskeletal: [Low back pain, bilateral leg pain] Psychiatric: [Normal mood/affect] Neurological: [Denies weakness in extremities], [denies balance issues] Objective:: Physical Exam: General: Alert and oriented x3, no acute distress, pleasant and cooperative Lungs: Respirations even and unlabored, symmetrical chest expansion Eyes: PERRL Musculoskeletal: Flexion and extension of lumbar [spine] somewhat guarded secondary to pain, [antalgic gait noted] Neurological: Speech clear, no gross sensory deficit Assessment:: Degenerative disc disease of lumbar spine with lumbar radiculopathy symptoms, postlaminectomy syndrome Plan:: Patient continues to have significant pain in his low back that radiates into his bilateral lower extremities. He has limited range of motion in his lumbar spine at today's visit. Patient has tried and failed other conservative therapies such as oral medications, topical medications, injective therapy, physical therapy and at home stretching and exercising for longer than 6 weeks. I will reorder the patient's compounding cream. We will also proceed forward with the pain pump trial for this patient. At this time we are waiting on approval and will notify him when we get it. Patient has been instructed to contact the clinic with any concerns before the next appointment. Dr. Peguero has reviewed this note and agrees with this plan of care. This note was dictated using voice recognition software and make contain errors or omissions. [facility] Social History (Updated 02/23/22 @ 13:19 by Oliva Vitale RN) Smoking Status: Current every day smoker tobacco type: cigarettes packs per day: 1 second hand exposure: Yes alcohol intake: never substance use type: marijuana and other current occupational status: other Travel in the last 8 weeks: None household members: none housing: house current occupational exposures/hazards: No caffeine: Yes
== END ==
PROVIDERS: PCP Family Medicine; Visit Provider Nurse Practitioner Family
DX: M51.16 Intervertebral disc disorders with radiculopathy, lumbar region (principal); M96.1 Postlaminectomy syndrome, not elsewhere classified; Z72.0 Tobacco use
CPT/HCPCS: 99212; G0463

== ENCOUNTER 2022-03-10 07:48 | Day surgery (SDC) | payer MEDICARE, MEDICAID, SELFPAY ==
[2022-03-10] VITALS (8 sets, daily range): BP systolic 122–183; BP diastolic 76–109; PULSE 98–114; RESP 18–20; TEMP 36.4; O2SAT 93–96; BMI 35.7
--- NOTE | 2022-03-10 08:57 | EXP.PAIN.PRO ---
Procedure Date: 03/10/22 Time: 08:58 Anesthesiologist:: Romeo Peguero MD Complications:: None Pre-procedure Diagnosis:: Postlaminectomy syndrome lumbar spine with lumbar radiculopathy symptoms Post-procedure Diagnosis:: Same Indications for Procedure:: Patient is a pleasant 67-year-old white male who we are treating for low back pain with lumbar radiculopathy symptoms with postlaminectomy syndrome. He has failed all previous conservative treatments including injections, oral medications, physical therapy and previous surgery. He has had a successful psychological evaluation. He presents for intrathecal pump trial today. He is not on any oral narcotics. He did previously failed a spinal cord stimulator trial as well. Procedure Details:: Pain pump trial Informed consent was obtained and the risk and benefits of the procedure was explained to the patient. The patient was taken to the procedure room and placed prone on the procedure table. Patient was prepped and draped in sterile fashion. C-arm fluoroscopy was used to view the lumbar spine. The skin and subcutaneous tissues were anesthetized using lidocaine. I placed a 18-gauge spinal needle into the L4-5 interspace and advanced until clear CSF was obtained. After this intrathecal catheter was inserted and advanced very easily to the L1 vertebral body. The needle was withdrawn. We were able to freely withdraw clear CSF through the catheter. We then injected intrathecal opioid single shot bolus of 25 mcg followed by saline and followed by the previous CSF that was withdrawn. The needle and catheter were then removed and a Band-Aid was placed. Patient tolerated the procedure well with no complications. We reevaluated the patient after 30 minutes to 1 hour. He was also reassessed by physical therapy. This patient had 90 to 100% relief in pain symptoms. He did very well with minimal side effects. We will plan on permanent placement of intrathecal morphine pain pump. This will be at 5 mg/mL to start at 0.25 mg/day. Catheter tip will be at the T10 vertebral body. Plan and Disposition:: We will seek approval for permanent placement of intrathecal morphine pain pump. Patient did very well with his trial. He was 90 to 100% better. He was much more functional. Physical therapy evaluation was much improved. We will plan on permanent placement of intrathecal morphine pain pump with concentration 5 mg/mL to start at 0.25 mg/day. With catheter tip at the T10 vertebral body.
--- NOTE | 2022-03-10 09:38 | PC.NURSE ---
Pt. has no complaints at this time. Reports pain 0/10.
== END 2022-03-10 10:31 | disposition home or self-care (01) ==
PROVIDERS: PCP Family Medicine; Visit Provider Anesthesiology
DX: M54.16 Radiculopathy, lumbar region (principal); M96.1 Postlaminectomy syndrome, not elsewhere classified
CPT/HCPCS: 62323; 96365

== ENCOUNTER 2022-04-14 08:00 | Day surgery (SDC) | payer MEDICARE, MEDICAID, SELFPAY ==
[2022-04-11 16:58] VITALS: BMI 36.0
[2022-04-14 08:30] VITALS: BP 142/78; PULSE 106; RESP 20; TEMP 36.4; O2SAT 95
--- NOTE | 2022-04-14 08:52 | EXP.ANES.CKL ---
[facility] PFS Medical History COPD (chronic obstructive pulmonary disease) Degenerative disc disease Depression Surgical History Hx of decompressive lumbar laminectomy Family History Other Family history of degenerative disc disease Social History Smoking Status: Current every day smoker tobacco type: cigarettes packs per day: 1 second hand exposure: Yes alcohol intake: never substance use type: marijuana and other current occupational status: other Travel in the last 8 weeks: None household members: none housing: house current occupational exposures/hazards: No caffeine: Yes [facility] Anesthesia Checklist Patient Identification Patient Identification: Arm Band and Verbal (Name & ) Structural Data Admitted From: Home Planned Operative Procedure/s: Pain pump placement Consent for Planned Operative Procedure(s) Verified: Yes NPO Status Verified Time NPO: 00:00 Additional verifications Anesthesia Reactions: No Hx Blood Transfusions: Yes Blood Transfusion Reaction: No Airway Assessment C-Spine Mobility Assessed: Yes TMJ Mobility Assessed: Yes Dentition: Edentulous Neurological Assessment Level of Consciousness: Awake Hx Seizures: No Numbness or tingling in extremities: Yes Anesthesia Plan Anesthesia Risk discussed: Yes Anesthesia Plan: Verified ASA Class: II Anesthesia Type: MAC
[2022-04-14 08:59] LABS: Basophils # 0.2 K/mm3 (0-0.2); Eosinophils # 0.3 K/mm3 (0.0-0.4); Eosinophils % 2.9 % (0.1-12.0); Hematocrit 51.9 % (42.0-52.0); Hemoglobin 17.4 g/dL (14.1-18.0); Lymphocytes # 3.4 K/mm3 (0.7-4.5); Lymphocytes % 35.2 % (10-50); Mean Corpuscular HGB Conc 33.5 g/dL (31.8-35.4); Mean Corpuscular Hemoglobin 31.2 pg (27.0-31.2); Mean Corpuscular Volume 93.1 fl (80-94); Mean Platelet Volume 9.4 fl (7.4-10.4); Monocytes # 0.7 K/mm3 (0.1-1.0); Monocytes % 6.6 % (1.7-9.3); Neutrophils # 5.2 K/mm3 (1.8-7.8); Neutrophils % 53.3 % (37.0-80.0); Platelet Count 288 K/mm3 (142-424); Red Blood Count 5.58 M/mm3 (4.60-6.20); Red Cell Distribution Width 13.5 % (11.5-17.5); White Blood Count 9.8 K/mm3 (4.8-10.8)
[2022-04-14 09:00] LABS: Chloride 102 mmol/L (98-107); Sodium 138 mmol/L (136-145)
[2022-04-14 09:03] LABS: Blood Urea Nitrogen 6 mg/dl (9-20); Calcium 9.5 mg/dl (8.4-10.2); Carbon Dioxide 27 mmol/L (22.0-30.0); Creatinine Clearance Estimated 106 mL/min (50-200); Estimated Glomerular Filt Rate 96 ml/min (>60); GFR (African American) 116 ML/MIN (>60); Glucose 138 mg/dl (74-100)
[2022-04-14 11:40] VITALS: BP 88/55; PULSE 105; RESP 17; TEMP 36.2; O2SAT 92
[2022-04-14 11:55] VITALS: BP 91/77; PULSE 111; RESP 18; O2SAT 92
[2022-04-14 12:10] VITALS: BP 131/69; PULSE 83; RESP 18; O2SAT 92
[2022-04-14 12:30] VITALS: BP 108/70; PULSE 62; RESP 18; O2SAT 93
[2022-04-14 12:51] VITALS: TEMP 38
--- NOTE | 2022-04-14 13:16 | P.OP_ITS ---
Date of procedure: 04/14/22 Pre-op Diagnosis:: Postlaminectomy syndrome of lumbar spine with lumbar radiculopathy symptoms Post-op Diagnosis:: Same Procedure performed:: Perm placement intrathecal pain pump catheter with swelling and pain pump generator placement Surgeon:: Romeo Peguero MD SUPERVISOR CLOTH WINDING:: Anatoly Pretty Anesthesia: MAC Estimated blood loss (mL): 5 Clinical Note:: This patient is a pleasant 67-year-old white male who we have been treating for low back pain with lumbar radiculopathy symptoms and postlaminectomy syndrome lumbar spine. He has failed all previous conservative treatments including injections, oral medications, physical therapy and previous surgery. He has had a successful psychological evaluation. He had a successful intrathecal pump trial. He presents for permanent placement of his intrathecal pain pump today. Operative findings:: None Operative note:: Informed consent was obtained risk and benefits of the procedure were explained to the patient. Patient was taken the procedure room. He was placed prone on the procedure table. He was prepped and draped in sterile fashion. C-arm fluoroscopy was used to view the right flank. We created the pump pocket in between the 12th rib and iliac crest. After creating the pocket we placed Ray- Jaime's in the pocket for hemostasis. C-arm fluoroscopy was then used to view the lumbar spine. The skin and subtenons tissues adjacent to the L4-5 interspace were anesthetized using lidocaine. A 17-gauge spinal needle was inserted and advanced into the L4-5 interspace until clear CSF was obtained. After this intrathecal catheter was inserted and advanced very easily to the T10 vertebral body. Catheter placement was checked in a lateral views to make sure the catheter was posterior. The stylette of the catheter and the needle were withdrawn. The catheter secured to the fascia with an anchor device in 2-0 Prolene. I prepared the pump with 20 mils of intrathecal morphine 1 mg/mL. I then tunneled the catheter from the back to the pump pocket and attached catheter to the pump. We were able to freely withdraw clear CSF through the side-port. The pump was placed in the pocket. Again we checked to make sure we can freely withdraw clear CSF through the side-port. Both incisions were irrigated with antibiotic solution. Both incisions were then closed with 2-0 Vicryl followed by virgil. A wound VAC was placed over both incisions. The patient was placed in an abdominal binder taken recovery in stable condition. Patient tolerated the procedure well no complications. Patient did get a back brace to reduce pain by restricting mobility of the spine. Patient was discharged home neurologic intact with good relief of pain symptoms. Pump was interrogated and started 0.25 mg/day. Plan and disposition: Follow-up with this patient in 1 week for wound check and reprogram. We will follow-up in 2 weeks for staple removal. If patient has any problems questions she is to call us back in the pain clinic. Condition: stable Disposition: PACU Complications:: None
== END 2022-04-14 12:30 | disposition home or self-care (01) ==
PROVIDERS: PCP Family Medicine; Visit Provider Anesthesiology
DX: M51.16 Intervertebral disc disorders with radiculopathy, lumbar region (principal); M96.1 Postlaminectomy syndrome, not elsewhere classified; Z72.0 Tobacco use; Z79.899 Other long term (current) drug therapy
CPT/HCPCS: 62350; 62362; 80048; 85025; 96374; C1755; C1772; J2704

== ENCOUNTER → 2022-04-20 11:03 | Outpatient (POV) | payer MEDICARE, MEDICAID, SELFPAY ==
--- NOTE | 2022-04-20 11:47 | EXP.PAIN.PRO ---
Procedure Date: 04/20/22 Time: 11:27 Anesthesiologist:: Queenie Freitas APRN Complications:: None Pre-procedure Diagnosis:: Degenerative disc disease of lumbar spine with lumbar radiculopathy symptoms, postlaminectomy syndrome Post-procedure Diagnosis:: Same Indications for Procedure:: Patient is a pleasant 67-year-old male who presents today for intrathecal pain pump adjustment and reprogram. The patient is being treated for degenerative disc disease of lumbar spine with lumbar radiculopathy symptoms, postlaminectomy syndrome. Patient had he has intrathecal pain pump placed on 04/14/2022. Patient states he did have some issues with the wound VAC the following day. He states it kept making noise possibly for an air leak however he was able to get it to run without problems after troubleshooting the device. He does state that he thinks he has had some withdrawal issues stating that he has had cold sweats. Patient states he has had good pain coverage and states he does occasionally have continued numbness in his legs however it is not the pain that he had prior to this procedure. Patient is currently being managed with morphine 1 mg/mL with a daily dose of 0.2502 mg/day. Patient denies any side effects from this medication. Patient rates pain a 5 out of 10. Drug screen is appropriate. Patient is requesting oral pain medication at today's visit. [facility] [id number] has been reviewed and is appropriate. Physical exam General: Alert and oriented x3, no acute distress, pleasant and cooperative Lungs: Respirations even and unlabored, symmetrical chest expansion Eyes: PERRL Musculoskeletal: Flexion and extension of lumbar [spine] somewhat guarded secondary to pain, [antalgic gait noted] Neurological: Speech clear, no gross sensory deficit Skin: Clean, dry, well approximated, no erythema noted, virgil intact Procedure Details:: Informed consent was obtained and the risk and benefits of the procedure were explained to the patient. Patient was taken to the procedure room where noninvasive monitoring was placed including noninvasive blood pressure cuff and pulse oximeter. Patient's pump was interrogated and was reprogrammed to morphine 1 mg/mL with a daily dose of 0.2755 mg/day. The patient tolerated the procedure well with no complications. Plan and Disposition:: Patient will return to clinic in 2 weeks to remove his virgil and apply skin glue and Steri-Strips. Patient's incision sites were clean, dry, well approximated with no erythema and virgil intact at today's visit. We will also reevaluate his pain symptoms at this appointment and see how he is done with his 10% increase. I have counseled the patient that we will not give any additional oral opioids. Patient has been instructed to contact the clinic with any concerns before the next appointment. Dr. Peguero has reviewed this note and agrees with this plan of care. This note was dictated using voice recognition software and make contain errors or omissions. -- It Is medically necessary for this patient to continue to have their intrathecal pump refilled at regular intervals. This patient had an intrathecal pain pump implanted after meeting criteria of chronic intractable pain for greater than 3 months and failing conservative treatments. Patient has committed and been compliant to the treatment plan and all planned follow up care. Since implantation of the intrathecal pain pump, the patient has had decreased pain and been more functional. Oral medications have been reduced including intake of oral opioids. Patient continues to do well with intrathecal therapy with decrease in pain symptoms and increase in functional status. Stopping intrathecal medications can lead to life threatening withdrawal, seizures, cardiac arrest, severe pain, and possible . Pumps that are not refilled at regular intervals can be damages and cause and need for replacement. We continually titrate dose and concentration t
[2022-04-20 12:11] VITALS: BP 140/91; PULSE 112; RESP 20; BMI 36.0
== END | disposition home or self-care (01) ==
PROVIDERS: PCP Family Medicine; Visit Provider Nurse Practitioner Family
DX: M51.16 Intervertebral disc disorders with radiculopathy, lumbar region (principal); M96.1 Postlaminectomy syndrome, not elsewhere classified
CPT/HCPCS: 62368

== ENCOUNTER → 2022-05-08 14:31 | Outpatient (POV) | payer MEDICARE, MEDICAID, SELFPAY ==
[2022-05-08 15:00] VITALS: BP 149/87; PULSE 106; RESP 18; O2SAT 92; BMI 34.9
--- NOTE | 2022-05-08 15:19 | EXP.PAIN.SOA ---
[facility] Pain Management SOAP Note Subjective:: Patient is a pleasant 67-year-old male who presents today for follow-up of intrathecal pain pump placement on 04/14/2022. We are currently treating the patient for degenerative disc disease of lumbar spine with lumbar radiculopathy symptoms, postlaminectomy syndrome. Today the patient rates his pain a 2 out of 10. Patient denies any new trauma or injury. Patient states he is done well following his procedure. At our last visit we did increase the patient's dosage and he states he has done well with this. He is currently managed with morphine 1 mg/mL with a daily dose of 0.2755 mg/day. Patient denies any side effects from this medication. Patient states he has had some issues with sleeping however states this is unrelated to his pump. Patient has also been prescribed pregabalin 75 mg 4 times a day however the patient states he does not take this medication on a continuous basis. Patient does not need any additional refills of this medication. He states occasionally he does feel more groggy, hung over in the morning following taking it. Patient will be an [facility] refill patient. His Jesus is [id number]. It has been reviewed and appropriate. Review of Systems: General: No recent weight changes, no fever, no sleep disturbances Respiratory: No cough, no shortness of air, no recurring pulmonary infections Cardiovascular/peripheral vascular: No chest pain, no palpitations, no edema, no shortness of breath Gastrointestinal: No new onset incontinence, normal bowel movements reported Genitourinary: No new onset incontinence Musculoskeletal: Low back pain Psychiatric: [Normal mood/affect] Neurological: [Denies weakness in extremities], [denies balance issues] Objective:: Physical Exam: General: Alert and oriented x3, no acute distress, pleasant and cooperative Lungs: Respirations even and unlabored, symmetrical chest expansion Eyes: PERRL Musculoskeletal: Flexion and extension of lumbar [spine] somewhat guarded secondary to pain, [antalgic gait noted] Neurological: Speech clear, no gross sensory deficit Skin: Incision site clean, dry, well approximated with no erythema noted Assessment:: Degenerative disc disease of lumbar spine with lumbar radiculopathy symptoms, postlaminectomy syndrome Plan:: Patient has had significant improvement of his pain symptoms following his intrathecal pain pump placement. At this time the patient does not require any additional adjustment. Patient's incision sites are clean, dry, well approximated with no erythema noted. Patient does have Steri-Strips applied to his right lower lumbar incision. I have counseled the patient to continue his restrictions with minimal bending, lifting, twisting, no tub bathing or submerging in water and to continue to use his abdominal binder. I will order the patient tizanidine 4 mg at bedtime and provide a 14-day supply of this medication. Patient will return to clinic in 1 month for follow-up and reevaluation of symptoms. Patient has been instructed to contact the clinic with any concerns before the next appointment. Dr. Peguero has reviewed this note and agrees with this plan of care. This note was dictated using voice recognition software and make contain errors or omissions. -- It Is medically necessary for this patient to continue to have their intrathecal pump refilled at regular intervals. This patient had an intrathecal pain pump implanted after meeting criteria of chronic intractable pain for greater than 3 months and failing conservative treatments. Patient has committed and been compliant to the treatment plan and all planned follow up care. Since implantation of the intrathecal pain pump, the patient has had decreased pain and been more functional. Oral medications have been reduced including intake of oral opioids. Patient continues to do well with intrathecal therapy with decrease in pain symptoms and increase in functional status. Stopping intrathec
== END | disposition home or self-care (01) ==
PROVIDERS: Visit Provider Nurse Practitioner Family
DX: M51.16 Intervertebral disc disorders with radiculopathy, lumbar region (principal); M96.1 Postlaminectomy syndrome, not elsewhere classified
CPT/HCPCS: 99212; 99213; G0463

== ENCOUNTER → 2022-05-30 12:57 | Outpatient (POV) | payer MEDICARE, MEDICAID, SELFPAY ==
--- NOTE | 2022-05-30 13:02 | EXP.PAIN.SOA ---
[facility] Pain Management SOAP Note Subjective:: Patient is a pleasant 67-year-old male who presents today for follow-up. We are currently treating the patient for degenerative disc disease of lumbar spine with lumbar radiculopathy symptoms, postlaminectomy syndrome today he rates his pain a 5 out of 10. Patient states the pain is in his low back with radiating symptoms down his legs. Patient states that earlier last week he started having worsening pain that progressively worsened over the weekend. Patient denies any new trauma or injury. Patient states that over the weekend it was particularly bad and so he primarily stayed in bed. Prior to this flareup the patient states he has been able to increase his activity including doing activities of daily living such as the dishes with decreased pain. Patient did have his intrathecal pain pump placed on 04/14/2022. Patient denies any additional issues since having this done. Patient states his pain has improved over the last 2 days. He is currently managed with morphine 1 mg/mL with a daily dose of 0.2755 mg/day. Patient denies any side effects from this medication. Patient states this has been adequately managing his pain symptoms well prior to his flareup. Patient is also taking pregabalin 75 mg 4 times a day however the patient states that he does not always take this on a regular basis because it does give a groggy, hung over feeling in the morning.. He is not needing any additional refills of this medicine. His Jesus is [id number]. It has been reviewed and appropriate. Review of Systems: General: No recent weight changes, no fever, no sleep disturbances Respiratory: No cough, no shortness of air, no recurring pulmonary infections Cardiovascular/peripheral vascular: No chest pain, no palpitations, no edema, no shortness of breath Gastrointestinal: No new onset incontinence, normal bowel movements reported Genitourinary: No new onset incontinence Musculoskeletal: Low back pain Psychiatric: [Normal mood/affect] Neurological: [Denies weakness in extremities], [denies balance issues] Objective:: Physical Exam: General: Alert and oriented x3, no acute distress, pleasant and cooperative Lungs: Respirations even and unlabored, symmetrical chest expansion Eyes: PERRL Musculoskeletal: Flexion and extension of lumbar [spine] somewhat guarded secondary to pain, [antalgic gait noted] Neurological: Speech clear, no gross sensory deficit Skin: Incision sites clean, dry, well approximated, no erythema, right lower incision still has a couple areas of scabbing Assessment:: Degenerative disc disease of lumbar spine with lumbar radiculopathy symptoms, postlaminectomy syndrome Plan:: Patient continues to experience significant pain in his low back with radiating symptoms down his legs. I have discussed with the patient that we will set up his PTM device during today's visit and give him one of his boluses. I have counseled the patient that he can come off his restrictions for bending, lifting, twisting however until his lower incision is completely healed I have instructed him no tub bathing or submerging in water. Patient will return to clinic on the for reevaluation of symptoms. I have discussed with the patient at this visit if he continues to experience worsening pain we will do an overall intrathecal medication increase. Patient will be scheduled next week for a intrathecal refill. We will see the patient back in the clinic at the next intrathecal refill. Patient has been instructed to contact the clinic with any concerns before the next appointment. Dr. Peguero has reviewed this note and agrees with this plan of care. This note was dictated using voice recognition software and make contain errors or omissions. -- It Is medically necessary for this patient to continue to have their intrathecal pump refilled at regular intervals. This patient had an intrathecal pain pump implanted after meeting criteria of chronic int
[2022-05-31 08:20] VITALS: BMI 34.8
== END ==
PROVIDERS: PCP Family Medicine; Visit Provider Nurse Practitioner Family
DX: M51.16 Intervertebral disc disorders with radiculopathy, lumbar region (principal); M96.1 Postlaminectomy syndrome, not elsewhere classified; F17.210 Nicotine dependence, cigarettes, uncomplicated
CPT/HCPCS: 62368; 99212; G0463

== ENCOUNTER 2022-06-06 12:37 | Day surgery (SDC) | payer MEDICARE, MEDICAID, SELFPAY ==
[2022-06-06 12:48] VITALS: BP 159/96; PULSE 116; RESP 18; TEMP 36.3; O2SAT 95; BMI 35.7
[2022-06-06 13:02] VITALS: BP 160/96; PULSE 110; RESP 18; O2SAT 96
[2022-06-06 13:03] VITALS: BP 160/96; PULSE 110; RESP 18; O2SAT 96
--- NOTE | 2022-06-06 13:19 | EXP.PAIN.PRO ---
Procedure Date: 06/06/22 Time: 13:30 Anesthesiologist:: Wero Harmon CRNA Complications:: None Pre-procedure Diagnosis:: Degenerative disc lumbar spine multilevels. Lumbar radiculopathy. Lumbar postlaminectomy syndrome Post-procedure Diagnosis:: Same. Indications for Procedure:: Patient is a very pleasant 67-year-old male that comes our clinic today for intrathecal pain pump refill. Patient currently is being managed with morphine sulfate 1 mg/mL at 0.2755 mg/day. He is complaining of low back pain as well as bilateral hip and leg radicular symptoms at times. He is requesting an increase. We will increase him by 10% to 0.3027 mg/day. He continues with PTM 4 doses in a 24-hour period. Procedure Details:: Details of the procedure were explained to the patient. The patient taken to procedure room placed in the sitting position. The area of the pump was cleansed using chlorhexidine as a cleansing solution. The pump was accessed with a ease using a 22-gauge needle. 4 mL of solution was withdrawn and discarded appropriately. The pump was then filled with morphine sulfate 1 mg/mL and increased to 0.3027 mg/day Plan and Disposition:: Patient was discharged without incident.
[2022-06-06 13:21] VITALS: BP 140/87; PULSE 106; RESP 18; O2SAT 95
== END 2022-06-06 13:21 | disposition home or self-care (01) ==
PROVIDERS: PCP Family Medicine; Visit Provider Nurse Anesthetist, Certified Registered
DX: M51.16 Intervertebral disc disorders with radiculopathy, lumbar region (principal); M96.1 Postlaminectomy syndrome, not elsewhere classified
CPT/HCPCS: 62370

== ENCOUNTER 2022-07-11 12:09 | Day surgery (SDC) | payer MEDICARE, MEDICAID, SELFPAY ==
[2022-07-11 12:48] VITALS: BP 152/95; PULSE 116; RESP 18; TEMP 36.4; O2SAT 92; BMI 35.7
--- NOTE | 2022-07-11 13:08 | EXP.PAIN.PRO ---
Procedure Date: 07/11/22 Time: 12:50 Anesthesiologist:: Wero Harmon CRNA Complications:: None Pre-procedure Diagnosis:: Degenerative disc disease lumbar spine multilevels. Lumbar radiculopathy. Lumbar postlaminectomy syndrome Post-procedure Diagnosis:: Same. Indications for Procedure:: Patient is a pleasant 67-year-old male comes our clinic today for intrathecal pain pump interrogation and refill. He is currently being managed with morphine sulfate 1 mg/mL at 0.3027 mg/day. We will change his concentration to 2 mg/mL today. His pump will remain same rate. Procedure Details:: Details of the procedure explained to the patient. The patient taken the procedure room placed in the sitting position. The area over the pump was cleaned using chlorhexidine as a cleansing solution. The pump was accessed with ease using a 22-gauge inch and half needle. 6.9 mL of solution was withdrawn and discarded appropriately. The pump was then filled with 20 cc of morphine sulfate 2 mg/mL. The rate will continue at 0.3027 mg/day. Plan and Disposition:: Patient was discharged without incident.
[2022-07-11 13:11] VITALS: BP 140/89; PULSE 107; RESP 18; O2SAT 94
== END 2022-07-11 13:11 | disposition home or self-care (01) ==
PROVIDERS: PCP Family Medicine; Visit Provider Nurse Anesthetist, Certified Registered
DX: Z45.1 Encounter for adjustment and management of infusion pump (principal); M51.16 Intervertebral disc disorders with radiculopathy, lumbar region; M96.1 Postlaminectomy syndrome, not elsewhere classified
CPT/HCPCS: 95991

== ENCOUNTER → 2022-09-19 12:10 | Day surgery (SDC) | payer MEDICARE, MEDICAID, SELFPAY ==
[2022-09-19 13:00] VITALS: BP 148/87; BP 160/98; PULSE 114; PULSE 118; RESP 18; RESP 19; TEMP 36.1; O2SAT 95; O2SAT 98; BMI 35.7
--- NOTE | 2022-09-19 13:12 | P.PCN_ITS ---
Procedure Date: 09/19/22 Time: 13:05 Anesthesiologist:: Wero Harmon CRNA Complications:: None Pre-procedure Diagnosis:: Degenerative disc disease lumbar spine multilevels. Lumbar radiculopathy. Lumbar postlaminectomy syndrome. Post-procedure Diagnosis:: Same. Indications for Procedure:: This patient is a very pleasant 67-year-old male that comes our clinic today for intrathecal pain pump interrogation and refill. He is currently being managed with morphine sulfate 2 mg/mL at 0.3027 mg/day. Patient having some increased lumbar pain and is requesting the pump to be increased today. Procedure Details:: Details of the procedure explained to the patient. The patient taken procedure room placed in sitting position. The area over the intrathecal pain pump was cleansed using chlorhexidine as a cleansing solution. The pump was int errogated. The pump was accessed with ease using a 22-gauge inch and a half needle. 4.8 mL of solution was withdrawn discarded appropriately. The pump was then filled incrementally with 20 cc of morphine sulfate 2 mg/mL. The pump was increased by 10%. The new rate is 0.3333 milligrams per day. Patient tolerated procedure without difficulty. There are no complications Plan and Disposition:: Patient was discharged without incident.
[2022-09-19 13:20] VITALS: BP 126/90; PULSE 113; RESP 18; O2SAT 99
== END | disposition home or self-care (01) ==
PROVIDERS: PCP Family Medicine; Visit Provider Nurse Anesthetist, Certified Registered
DX: Z45.1 Encounter for adjustment and management of infusion pump (principal); M51.16 Intervertebral disc disorders with radiculopathy, lumbar region; M96.1 Postlaminectomy syndrome, not elsewhere classified
CPT/HCPCS: 62370

== ENCOUNTER 2022-11-21 12:24 | Day surgery (SDC) | payer MEDICARE, MEDICAID, SELFPAY ==
[2022-11-21 12:37] VITALS: BP 144/88; PULSE 97; RESP 18; TEMP 36.4; O2SAT 98; BMI 35.7
[2022-11-21 12:54] VITALS: BP 150/84; PULSE 90; RESP 18; O2SAT 98
--- NOTE | 2022-11-21 12:54 | P.PCN_ITS ---
Procedure Date: 11/21/22 Time: 12:40 Anesthesiologist:: Wero Harmon CRNA Complications:: None Pre-procedure Diagnosis:: Degenerative disc disease lumbar spine multilevels. Lumbar radiculopathy. Lumbar postlaminectomy syndrome. Lumbar spondylosis. Bilateral sacroiliitis. Chronic pain syndrome. Post-procedure Diagnosis:: Same. Indications for Procedure:: Patient is a very pleasant 67-year-old male comes our clinic today for intrathecal pain pump interrogation refill. Patient is currently being managed with morphine sulfate 2 mg/mL at a rate of 0.3333 mg/day. Patient complaining of increased low back pain with bilateral hip and leg radicular symptoms to the knee. He describes pain increases significantly when standing and or ambulating for any length of time. Patient has difficulty transitioning from sitting to standing. Patient has bilateral positive Guy's test. Positive Gaenslen's test. Positive bilateral sacroiliac joint compression test. We discussed in detail regarding increasing intrathecal pain pump rate. However, we decided we would wait until after bilateral sacroiliac joint injections. Procedure Details:: Details of the procedure were explained to the patient. Patient taken to procedure room placed in sitting position. The area of the pump was cleansed using chlorhexidine as a cleansing solution. The pump was interrogated. The pump was accessed with ease using a 22-gauge needle. 5.5 mL of solution was withdrawn and discarded appropriately. The pump was then filled incrementally with 20 cc of morphine sulfate 2 mg/mL. The pump rate will not change today. Patient tolerated procedure without difficulty. There were no complications. Plan and Disposition:: We will schedule the patient for bilateral sacroiliac joint injections. I disc ussed the injections with the patient in detail. Answered his questions. He wishes to proceed.
== END 2022-11-21 12:54 | disposition home or self-care (01) ==
PROVIDERS: PCP Family Medicine; Visit Provider Nurse Anesthetist, Certified Registered
DX: Z45.1 Encounter for adjustment and management of infusion pump (principal); M51.16 Intervertebral disc disorders with radiculopathy, lumbar region; M47.26 Other spondylosis with radiculopathy, lumbar region; M96.1 Postlaminectomy syndrome, not elsewhere classified; M46.1 Sacroiliitis, not elsewhere classified; G89.4 Chronic pain syndrome
CPT/HCPCS: 95991

== ENCOUNTER 2022-11-28 10:35 | Day surgery (SDC) | payer MEDICARE, MEDICAID, SELFPAY ==
[2022-11-28 10:50] VITALS: BP 128/73; PULSE 101; RESP 18; TEMP 36.6; O2SAT 93; BMI 36.5
[2022-11-28 10:53] VITALS: BP 167/97; PULSE 98; RESP 18; O2SAT 92
--- NOTE | 2022-11-28 11:00 | P.PCN_ITS ---
Procedure Date: 11/28/22 Time: 10:45 Anesthesiologist:: Wero Harmon CRNA Complications:: None Pre-procedure Diagnosis:: Bilateral sacroiliitis. Degenerative disc lumbar spine multilevels. Lumbar radiculopathy. Lumbar postlaminectomy syndrome. Lumbar spondylosis. Chronic pain syndrome. Post-procedure Diagnosis:: Same. Indications for Procedure:: Patient is a very pleasant 67-year-old male that comes our clinic today for bilateral sacroiliac joint injections. Patient has extreme point tenderness over the bilateral sacroiliac joints. Patient has difficulty transitioning from sitting to standing. Patient is also being managed in our clinic with intrathecal morphine sulfate 2 mg/mL at a rate of 0.333 mg/day Procedure Details:: Procedure: Bilateral sacroiliac joint injections under fluoroscopy Informed consent was obtained and the risks and benefits of the procedure were explained to the patient.~ The patient was taken to the procedure room and noninvasive monitors were placed including a noninvasive blood pressure cuff and pulse oximeter.~ The patient was placed prone on the procedure table. Both hips were cleansed using Betadine as a cleansing solution. C-arm fluoroscopy was used to view the right sacroiliac joint.~ The skin and subcutaneous tissues were anesthetized using lidocaine 1.5% and a 25-gauge needle.~ After this, a 22-gauge spinal needle was inserted under fluoroscopic guidance into the inferior aspect of the right sacroiliac joint.~ Omnipaque dye was injected and good spread was seen throughout the joint.~ After this, approximately 5 mL of bupivacaine, 0.25% and Depo-Medrol, 40 mg was incrementally injected into the right sacroiliac joint. We then moved to the left sacroiliac joint.~ The skin and subcutaneous tissues were anesthetized using lidocaine 1.5% and a 25-gauge needle.~ After this, a 22- gauge spinal needle was inserted under fluoroscopic guidance into the inferior aspect of the left sacroiliac joint.~ Omnipaque dye was injected and good spread was seen throughout the joint. After this, approximately 5 mL of bupivacaine, 0.25% and Depo-Medrol, 40 mg was incrementally injected into the left sacroiliac joint.~ The patient tolerated the procedure well with no complications. The patient was observed in the Pain Clinic and then was discharged home neurologically intact. Plan and Disposition:: Patient was discharged without incident.
[2022-11-28 11:01] VITALS: BP 154/83; PULSE 89; RESP 18; O2SAT 93
== END 2022-11-28 11:01 | disposition home or self-care (01) ==
PROVIDERS: PCP Family Medicine; Visit Provider Nurse Anesthetist, Certified Registered
DX: M46.1 Sacroiliitis, not elsewhere classified (principal); M51.16 Intervertebral disc disorders with radiculopathy, lumbar region; M96.1 Postlaminectomy syndrome, not elsewhere classified; M47.896 Other spondylosis, lumbar region; G89.4 Chronic pain syndrome
CPT/HCPCS: 27096; G0260; J1040

== ENCOUNTER → 2022-12-21 09:41 | Outpatient (POV) | payer MEDICARE, MEDICAID, SELFPAY ==
--- NOTE | 2022-12-21 10:11 | EXP.PAIN.PRO ---
Procedure Date: 12/21/22 Time: 10:11 Anesthesiologist:: Queenie Freitas APRN Complications:: None Pre-procedure Diagnosis:: Degenerative disc disease of lumbar spine multilevels with lumbar radiculopathy symptoms, lumbar postlaminectomy syndrome, lumbar spondylosis, chronic pain syndrome, bilateral sacroiliitis Post-procedure Diagnosis:: Same Indications for Procedure:: Patient is a pleasant 67-year-old male who presents today for follow-up of bilateral SI injections on 11/28/2022 and intrathecal pain pump reprogramming adjustment. The patient is being treated for degenerative disc disease of lumbar spine multilevels with lumbar radiculopathy symptoms, lumbar postlaminectomy syndrome, lumbar spondylosis, chronic pain syndrome, bilateral sacroiliitis. Patient is currently being managed with morphine 2 mg/mL with a daily dose of 0.3333 mg/day. Patient denies any side effects from this medication. Patient rates pain a 4 out of 10. He does state following his bilateral SI injections he had no additional relief including with the initial numbing medication. Patient states that normally he does well during the first few hours with decreased pain symptoms however this time made no apparent change. He does state that he feels like he pulled a muscle along his left side recently. Patient denies any specific injury related to this. He does also feel that he has pump is not at the appropriate dose because he continues to have significant pain on a daily basis. He states he does also use his bolus device however does not notice any additional improvement with it. Drug screen is appropriate. He has also prescribed compounding cream [facility] [phone] has been reviewed and is appropriate. Physical exam General: Alert and oriented x3, no acute distress, pleasant and cooperative Lungs: Respirations even and unlabored, symmetrical chest expansion Eyes: PERRL Musculoskeletal: Flexion and extension of lumbar [spine] somewhat guarded secondary to pain, [antalgic gait noted] Neurological: Speech clear, no gross sensory deficit Procedure Details:: Informed consent was obtained and the risk and benefits of the procedure were explained to the patient. Patient was taken to the procedure room where noninvasive monitoring was placed including noninvasive blood pressure cuff and pulse oximeter. Patient's pump was interrogated and was reprogrammed to morphine 0.3667 mg/day. The patient tolerated the procedure well with no complications. Plan and Disposition:: Patient tolerated his intrathecal increase with no complications and was discharged neurologically intact. Patient will return to clinic in 1 month for reevaluation of symptoms and possible intrathecal reprogramming adjustment. Patient has been instructed to contact the clinic with any concerns before the next appointment. Dr. Peguero has reviewed this note and agrees with this plan of care. This note was dictated using voice recognition software and make contain errors or omissions. -- It Is medically necessary for this patient to continue to have their intrathecal pump refilled at regular intervals. This patient had an intrathecal pain pump implanted after meeting criteria of chronic intractable pain for greater than 3 months and failing conservative treatments. Patient has committed and been compliant to the treatment plan and all planned follow up care. Since implantation of the intrathecal pain pump, the patient has had decreased pain and been more functional. Oral medications have been reduced including intake of oral opioids. Patient continues to do well with intrathecal therapy with decrease in pain symptoms and increase in functional status. Stopping intrathecal medications can lead to life threatening withdrawal, seizures, cardiac arrest, severe pain, and possible . Pumps that are not refilled at regular intervals can be damages and cause and need for replacement. We continually titrate dose and concentr
[2022-12-21 10:59] VITALS: BP 148/83; PULSE 98; RESP 20; BMI 35.4
== END | disposition home or self-care (01) ==
PROVIDERS: Visit Provider Nurse Practitioner Family
DX: M51.16 Intervertebral disc disorders with radiculopathy, lumbar region (principal); M96.1 Postlaminectomy syndrome, not elsewhere classified; M47.26 Other spondylosis with radiculopathy, lumbar region; G89.4 Chronic pain syndrome; M46.1 Sacroiliitis, not elsewhere classified
CPT/HCPCS: 62368

== ENCOUNTER → 2023-01-18 10:55 | Outpatient (POV) | payer MEDICARE, MEDICAID, SELFPAY ==
--- NOTE | 2023-01-18 11:26 | EXP.PAIN.PRO ---
Procedure Date: 01/18/23 Time: 11:27 Anesthesiologist:: Queenie Freitas APRN Complications:: None Pre-procedure Diagnosis:: Degenerative disc disease of lumbar spine multilevels with lumbar radiculopathy symptoms, lumbar postlaminectomy syndrome, lumbar spondylosis, chronic pain syndrome, bilateral sacroiliitis Post-procedure Diagnosis:: Same Indications for Procedure:: Patient is a pleasant 68-year-old male who presents today for follow-up and medication refill. We are currently treating the patient for degenerative disc disease of lumbar spine with lumbar radiculopathy symptoms, lumbar postlaminectomy syndrome, lumbar spondylosis, chronic pain syndrome, bilateral sacroiliitis. Today he rates his pain a 5 out of 10. Patient denies any new trauma or injury. He is currently managed with morphine 2 mg/mL with a daily dose of 0.3667 mg/day. Patient denies any side effects from this medication. He does state that he continues to have pain in his low back that is worse with increased activity. He states he is very limited on what he can do due to the worsening pain symptoms. He is also managed with pregabalin 75 mg at bedtime. Patient denies any side effects from this medication. His Jesus is [phone]. Its been reviewed and appropriate Physical Exam: General: Alert and oriented x3, no acute distress, pleasant and cooperative Lungs: Respirations even and unlabored, symmetrical chest expansion Eyes: PERRL Musculoskeletal: Flexion and extension of lumbar [spine] somewhat guarded secondary to pain, [antalgic gait noted] Neurological: Speech clear, no gross sensory deficit Procedure Details:: Informed consent was obtained and the risk and benefits of the procedure were explained to the patient. Patient was taken to the procedure room where noninvasive monitoring was placed including noninvasive blood pressure cuff and pulse oximeter. Patient's pump was interrogated and was reprogrammed to morphine 0.4031 mg/day. The patient tolerated the procedure well with no complications. Plan and Disposition:: Patient tolerated his intrathecal increase with no complications. I will send in refills of his pregabalin 75 mg at bedtime and send in a new prescription of tizanidine 4 mg at bedtime and provide a 1 month supply of these medications. Patient will return to clinic in 1 month for reevaluation of symptoms, medication refill and possible intrathecal adjustment. Patient has been instructed to contact the clinic with any concerns before the next appointment. Dr. Peguero has reviewed this note and agrees with this plan of care. This note was dictated using voice recognition software and make contain errors or omissions. -- It Is medically necessary for this patient to continue to have their intrathecal pump refilled at regular intervals. This patient had an intrathecal pain pump implanted after meeting criteria of chronic intractable pain for greater than 3 months and failing conservative treatments. Patient has committed and been compliant to the treatment plan and all planned follow up care. Since implantation of the intrathecal pain pump, the patient has had decreased pain and been more functional. Oral medications have been reduced including intake of oral opioids. Patient continues to do well with intrathecal therapy with decrease in pain symptoms and increase in functional status. Stopping intrathecal medications can lead to life threatening withdrawal, seizures, cardiac arrest, severe pain, and possible . Pumps that are not refilled at regular intervals can be damages and cause and need for replacement. We continually titrate dose and concentration to optimize pain relief and function. We are limited in concentration for certain drugs to safely deliver medications through the pump and stay within the recommendations from the Polyanalges[employer] Consensus Committee Guidelines. Depending on dose and concentration these pumps may need to be refilled sooner than
[2023-01-18 14:28] VITALS: BP 139/77; PULSE 104; RESP 17; O2SAT 98; BMI 35.4
== END | disposition home or self-care (01) ==
PROVIDERS: Visit Provider Nurse Practitioner Family
DX: M51.16 Intervertebral disc disorders with radiculopathy, lumbar region (principal); M96.1 Postlaminectomy syndrome, not elsewhere classified; M47.26 Other spondylosis with radiculopathy, lumbar region; G89.4 Chronic pain syndrome; M46.1 Sacroiliitis, not elsewhere classified
CPT/HCPCS: 62368; 99213; G0463

== ENCOUNTER 2023-01-26 12:24 | Day surgery (SDC) | payer MEDICARE, MEDICAID, SELFPAY ==
[2023-01-26 12:50] VITALS: BP 168/94; PULSE 104; RESP 18; TEMP 36.5; O2SAT 92; BMI 36.5
[2023-01-26 12:51] VITALS: BP 144/92; PULSE 100; PULSE 18; RESP 18; O2SAT 94; O2SAT 97
--- NOTE | 2023-01-26 13:00 | EXP.PAIN.PRO ---
Procedure Date: 01/26/23 Time: 13:00 Anesthesiologist:: Wero Harmon CRNA Complications:: None Pre-procedure Diagnosis:: Degenerative disease lumbar spine multilevels. Lumbar radiculopathy. Lumbar postlaminectomy syndrome. Lumbar spondylosis. Chronic pain syndrome. Bilateral sacroiliitis. Post-procedure Diagnosis:: Same. Indications for Procedure:: Patient is a very pleasant 68-year-old male that comes our clinic today for intrathecal pain pump interrogation refill. Patient currently being managed with morphine sulfate 2 mg/mL at a rate of 0.4031 milligrams per day. Patient reports he is doing very well at this time with his current settings. He does not report any side effects or complications. Procedure Details:: Details of the procedure explained to the patient. The patient taken the procedure room placed in the sitting position. The area of the pump was cleansed using chlorhexidine as a cleansing solution. The pump was interrogated. The pump was accessed with ease using 22-gauge inch and half needle. 4 mL of solution was withdrawn and discarded appropriately. The pump was then filled with 20 cc of a solution containing morphine sulfate 2 mg/mL. Patient tolerated procedure without difficulty. There are no complications Plan and Disposition:: Patient was discharged without incident.
[2023-01-26 13:02] VITALS: BP 166/93; PULSE 102; RESP 18; O2SAT 93
[2023-01-26 13:37] LABS: Amphetamine/Metha Screen,Urine Negative ng/ml (<1000)
[2023-01-26 13:38] LABS: Barbiturates Screen,Urine Negative ng/ml (<200); Benzodiazepines Screen,Urine Negative ng/ml (<200)
[2023-01-26 13:39] LABS: Cannabinoid Screen,Urine Negative ng/ml (<50); Cocaine Screen,Urine Negative ng/ml (<300)
[2023-01-26 13:40] LABS: Methadone Screen,Urine Negative ng/ml (<300)
[2023-01-26 13:41] LABS: Opiate Screen,Urine Negative ng/ml (<300); Phencyclidine Screen,Urine Negative ng/ml (<25)
[2023-01-31 22:08] LABS: Codeine Negative (Cutoff=100); Hydrocodone Negative (Cutoff=100); Hydromorphone Negative (Cutoff=100); Morphine Positive (.); Opiates Positive (.)
== END 2023-01-26 13:02 | disposition home or self-care (01) ==
PROVIDERS: Anesthesiology; PCP Family Medicine; Visit Provider Nurse Anesthetist, Certified Registered
DX: M51.16 Intervertebral disc disorders with radiculopathy, lumbar region (principal); M96.1 Postlaminectomy syndrome, not elsewhere classified; M47.26 Other spondylosis with radiculopathy, lumbar region; G89.4 Chronic pain syndrome; M46.1 Sacroiliitis, not elsewhere classified
CPT/HCPCS: 95991; 36415; 80305; 80361; 80365; G0480

== ENCOUNTER 2023-01-26 13:24 | Emergency (ER) | payer MEDICARE, MEDICAID, SELFPAY ==
--- NOTE | 2023-01-26 13:24 | ECG_ITS ---
APPROVED REPORT Exam: Resting ECG HR:103 bpm ECG Measurements Heart Rate 103 AXES PA 150 P 66 QRSd 96 QRS 51 QT 327 T 56 QTc 387 Conclusion SINUS TACHYCARDIA ABNORMAL RHYTHM ECG UNCONFIRMED REPORT Electronically signed by : Shiva Caballero MD 01/26/2023 17:15:57
[2023-01-26 13:35] VITALS: BP 158/105; PULSE 95; RESP 18; TEMP 37.1; O2SAT 92; BMI 36.5
[2023-01-26 13:36] VITALS: BMI 36.5
[2023-01-26 14:00] VITALS: BP 133/82; RESP 21
--- NOTE | 2023-01-26 14:00 | XR_ITS ---
FINAL REPORT CLINICAL HISTORY: Fall, hand swelling and tenderness 5thmet FINDINGS: Left hand Three views were obtained. There is a fracture of the distal 5th metacarpal and over riding of fracture fragments. There is dorsal hand soft tissue swelling. There are moderate degenerative changes of the wrist. IMPRESSION: Fracture as above. Reviewed, Interpreted and Dictated by Jong Barroso III, MD Transcribed by Jailyn Boggs Authenticated and [facility]
--- NOTE | 2023-01-26 14:00 | CT_ITS ---
FINAL REPORT TECHNIQUE: Axial CT images were performed from the lung apices through the upper abdomen. Coronal reformats were submitted. This study was performed with techniques to keep radiation doses as low as reasonably achievable (ALARA). Individualized dose reduction techniques using automated exposure control or adjustment of mA and/or kV according to the patient's size were employed. CLINICAL HISTORY: Fall, concern for contusion vs rib fx LT SIDE FINDINGS: There is no axillary adenopathy. There is no hilar or mediastinal mass or adenopathy. Heart size is normal. There is no pleural or pericardial effusion. Left lung opacities are seen, favor atelectasis. No suspicious infiltrate or nodule is identified on lung window images. There are nondisplaced left 7th, 8th, and 9th distal rib fractures. There is no pneumothorax. Limited images of the upper abdomen demonstrate small nonobstructing bilateral renal stones. IMPRESSION: Nondisplaced left 7th, 8th, and 9th distal rib fractures. Reviewed, Interpreted and Dictated by Jong Barroso III, MD Transcribed by Jailyn Boggs Authenticated and [facility]
[2023-01-26 14:30] VITALS: BP 107/81; RESP 22
--- NOTE | 2023-01-26 14:52 | PC.NURSE ---
Rounded on pt no needs at this time,call light at bs
--- NOTE | 2023-01-26 14:55 | PC.NURSE ---
contacted rad to check on status of ct scan results- states it is in a locked status. updated pt, pt reports his ride is needing to leave soon he may need to leave before results are back. Notified ER
--- NOTE | 2023-01-26 15:03 | PC.NURSE ---
ER MD Phillips reviewed pt hand xray, requesting to speak with ortho, contacted ortho office- office staff going to have dr. snyder call back to ER for consult.
--- NOTE | 2023-01-26 15:06 | HMH.EDGENADL ---
Discharge Plan Disposition Patient Disposition: Home, Self-Care Condition: Good Prescriptions Prescriptions: New lidocaine 5 % adhesive patch,medicated 2 patch topical DAILY Qty: 30 0RF Rx Instructions: leave on most painful area for up to 12 hrs No Action albuterol sulfate 18 GM HFA aerosol inhaler 1 - 2 puffs inhalation Q4-6H PRN (Reason: Shortness Of Breath Or Wheezing) duloxetine 60 mg capsule,delayed release(DR/EC) See Rx Instructions .ROUTE .COMPLEX Rx Instructions: TAKE 2 CAPSULES BY MOUTH EVERY DAY tizanidine [Zanaflex] 4 mg tablet 4 mg PO HS Qty: 30 0RF pregabalin 75 mg capsule 75 mg PO HS Qty: 30 0RF fluticasone furoate-vilanterol 1 EACH blister with device 1 mcg inhalation DAILY Referrals Follow up/Referrals: Sathish Hassan MD [Primary Care Provider] - 7-14 days Bladimir Freitsa DO [Staff Physician] - 01/30/23 (L 5th metacarpal neck fracture) Activity Restrictions/Add. Instructions Additional Instructions/Restrictions: You have been given outpatient follow-up with orthopedic surgery, plan to follow-up with them on Sunday regarding the fracture within your left hand. As we discussed, recommend that you use the incentive spirometer multiple times hourly. Recommend that you follow-up with your primary care provider. Should you develop any fever, productive cough, worsening chest pain, shortness of breath or difficulty breathing, recommend that you return to the emergency department for evaluation. Clinical Impressions Clinical Impression: Accidental fall from bed Qualifiers: Encounter type: initial encounter Qualified Code(s): W06.XXXA - Fall from bed, initial encounter Fracture of metacarpal, neck Qualifiers: Encounter type: initial encounter Metacarpal bone: fifth Fracture type: closed Fracture alignment: displaced Laterality: left Qualified Code(s): S62.337A - Displaced fracture of neck of fifth metacarpal bone, left hand, initial encounter for closed fracture Chest pain Qualifiers: Chest pain type: intercostal pain Qualified Code(s): R07.82 - Intercostal pain Fracture, ribs Qualifiers: Encounter type: initial encounter Fracture type: closed Laterality: left Qualified Code(s): S22.42XA - Multiple fractures of ribs, left side, initial encounter for closed fracture Instructions Patient Instructions: Rib Fracture, DI for Rib Fracture, Hand Fracture Discharge ED Provider: Juan Phillips I General Adult HPI General Chief complaint: PAIN Stated complaint: fall rib pain Time Seen by Provider: 01/26/23 13:43 Mode of Arrival: Ambulatory Source of Information: Patient Limitations: No Limitations Description of Symptoms (Recalled from ER Triage Doc. by RN): Pt reporting L sided rib pain r/t fall on Sunday night. Pt reports felt out of bed while sleeping hit large ashtray with his ribs. Pt also has bruising and swelling of L hand, unknown cause. Pt reports pain when trying to take a deep breath. History of Present Illness HPI narrative: Patient is a 68-year-old male with history of COPD, emphysema, depression presenting to the emergency department with pain in his left lower, lateral chest, left hand following a fall several days ago. History was conducted with the patient at bedside. Patient reports that he woke up Sunday morning because he fell out of bed. Patient reports that he pulled down in ashtray, landing on his left chest on the ashtray. Patient denies any loss of consciousness, does not take any blood thinners. Patient states that he has had worsening pain in the left lower chest as well as his left hand since that fall. He reports pain is worse with deep inspiration, denies any cough, congestion, runny nose, fever, abdominal pain, nausea, vomiting. Patient otherwise been eating and drinking well. Patient does have a morphine pump. Related Data Home Medications Medication Instructions Recorded Confirmed albuterol sulfate 90 mcg/
--- NOTE | 2023-01-26 15:16 | PC.NURSE ---
ER MD Phillips speaking with Dr. Freitas
--- NOTE | 2023-01-26 15:23 | PC.NURSE ---
dr. snyder recommended an ulnar gutter splint, stated to have pt follow up with him on sunday of next week
--- NOTE | 2023-01-26 15:54 | PC.NURSE ---
ulnar gutter splint applied to L hand per ER MD request, ER MD Phillips checked splint after application
[2023-01-26 16:07] VITALS: BP 112/78; PULSE 78; RESP 18; TEMP 36.8; O2SAT 97
== END 2023-01-26 16:19 | disposition home or self-care (01) ==
PROVIDERS: Emergency Provider Emergency Medicine; PCP Family Medicine
DX: S22.42XA Multiple fractures of ribs, left side, initial encounter for closed fracture (principal); S62.337A Displaced fracture of neck of fifth metacarpal bone, left hand, initial encounter for closed fracture; J44.9 Chronic obstructive pulmonary disease, unspecified; F32.A Depression, unspecified; W06.XXXA Fall from bed, initial encounter; F17.210 Nicotine dependence, cigarettes, uncomplicated
CPT/HCPCS: 36415; 71250; 73130; 80305; 80361; 80365; 93005; 99285; G0480

== ENCOUNTER → 2023-02-06 12:15 | Outpatient (CLI) | payer MEDICARE, MEDICAID, SELFPAY ==
--- NOTE | 2023-02-06 12:35 | XR_ITS ---
FINAL REPORT TECHNIQUE: Chest PA & Lateral CLINICAL HISTORY: Pre Op LEFT HAND, COPD COMPARISON: None FINDINGS: 2 views of the chest were performed. The heart size is normal. The mediastinum is within normal limits. There is no acute cardiopulmonary process. There are no pleural effusions. There is no pneumothorax. The bony thorax appears intact. IMPRESSION: No acute cardiopulmonary process. Reviewed, Interpreted and Dictated by Ismael Monique MD Transcribed by Nydia Gilliam Authenticated and [facility]
[2023-02-06 12:36] LABS: Basophils # 0.1 K/mm3 (0-0.2); Basophils % 0.6 % (0.1-2.0); Eosinophils # 0.2 K/mm3 (0.0-0.4); Eosinophils % 2.4 % (0.1-12.0); Hematocrit 52.3 % (42.0-52.0); Lymphocytes # 2.4 K/mm3 (0.7-4.5); Lymphocytes % 27.2 % (10-50); Mean Corpuscular HGB Conc 32.5 g/dL (31.8-35.4); Mean Corpuscular Hemoglobin 29.9 pg (27.0-31.2); Mean Corpuscular Volume 92.1 fl (80-94); Mean Platelet Volume 8.5 fl (7.4-10.4); Monocytes # 0.7 K/mm3 (0.1-1.0); Monocytes % 7.8 % (1.7-9.3); Neutrophils # 5.5 K/mm3 (1.8-7.8); Platelet Count 270 K/mm3 (142-424); Red Blood Count 5.68 M/mm3 (4.60-6.20); Red Cell Distribution Width 13.2 % (11.5-17.5); White Blood Count 8.9 K/mm3 (4.8-10.8)
[2023-02-06 13:23] LABS: Alanine Aminotransferase 29 U/L (12-78); Albumin Level 4.1 g/dl (3.5-5.0); Anion Gap 14.3 mEq/L (5-15); Aspartate Amino Transferase 37 U/L (17-59); Bilirubin,Total 0.5 mg/dl (0.2-1.3); Blood Urea Nitrogen 7 mg/dl (9-20); Calcium 9.6 mg/dl (8.4-10.2); Carbon Dioxide 28 mmol/L (22.0-30.0); Chloride 100 mmol/L (98-107); Estimated Glomerular Filt Rate 96 ml/min (>60); GFR (African American) 116 ML/MIN (>60); Glucose 108 mg/dl (74-100); Potassium 4.3 mmoL/L (3.5-5.1); Sodium 138 mmol/L (136-145); Total Protein,Serum 7.2 g/dl (6.3-8.2)
--- NOTE | 2023-02-06 13:23 | ECG_ITS ---
APPROVED REPORT Exam: Resting ECG HR:93 bpm ECG Measurements Heart Rate 93 AXES MD 156 P 53 QRSd 96 QRS 60 QT 350 T 46 QTc 401 Conclusion SINUS RHYTHM LOW QRS VOLTAGE IN PRECORDIAL LEADS [QRS DEFLECTION < 1.0 mV IN CHEST LEADS] BORDERLINE ECG UNCONFIRMED REPORT Electronically signed by : Shiva Caballero MD 02/20/2023 19:57:43
[2023-02-06 13:24] LABS: Albumin/Globulin Ratio 1.3 (1.1-1.8); Alkaline Phosphatase 96 U/L (38-126); Globulin 3.1 g/dL (1.3-3.2)
== END ==
PROVIDERS: PCP Family Medicine; Visit Provider Orthopaedic Surgery
DX: S62.339A Displaced fracture of neck of unspecified metacarpal bone, initial encounter for closed fracture (principal); M51.36 Other intervertebral disc degeneration, lumbar region; Z01.818 Encounter for other preprocedural examination
CPT/HCPCS: 36415; 71046; 80053; 85025; 93005

== ENCOUNTER 2023-02-07 12:10 | Day surgery (SDC) | payer MEDICARE, MEDICAID, SELFPAY ==
[2023-02-06 12:26] VITALS: BMI 36.3
[2023-02-07] VITALS (9 sets, daily range): BP systolic 88–150; BP diastolic 51–95; PULSE 86–96; RESP 12–19; TEMP 36.4–36.6; O2SAT 90–97
--- NOTE | 2023-02-07 14:06 | EXP.ANES.CKL ---
[facility] Disclaimer: The information contained in this section may have been updated after the patient was seen, as this information can be updated by other users. Medical History COPD (chronic obstructive pulmonary disease) Degenerative disc disease Depression Surgical History Hx of decompressive lumbar laminectomy Family History Other Family history of degenerative disc disease Social History Smoking Status: Current every day smoker tobacco type: cigarettes packs per day: 1 second hand exposure: Yes alcohol intake: never substance use type: marijuana and other current occupational status: other Travel in the last 8 weeks: None household members: none housing: house current occupational exposures/hazards: No caffeine: Yes [facility] Anesthesia Checklist Patient Identification Patient Identification: Arm Band and Verbal (Name & ) Structural Data Admitted From: Home Planned Operative Procedure/s: orif left finger Consent for Planned Operative Procedure(s) Verified: Yes Verified Documents: Surgical Consent NPO Status Verified Time NPO: 00:00 Additional verifications Anesthesia Reactions: No Hx Blood Transfusions: No Blood Transfusion Reaction: No Airway Assessment Mallampati Score:: Class II C-Spine Mobility Assessed: Yes TMJ Mobility Assessed: Yes Dentition: Dentures-good fit Neurological Assessment Hx Seizures: No Numbness or tingling in extremities: No Anesthesia Plan Anesthesia Risk discussed: Yes ASA Class: II Anesthesia Type: General w/block
--- NOTE | 2023-02-07 14:12 | XR_ITS ---
FINAL REPORT CLINICAL HISTORY: C-ARM USED FOR ORIF LEFT HAND 1:50mGy Time 1:31mGy c-arm case in or. FINDINGS: FLUOROSCOPY LESS THAN 1 HOUR HISTORY: Surgical pin placement. FINDINGS: Fluoroscopy guidance was performed for surgical pin placement. 5 spot films were obtained. 1 minute 31 seconds of fluoroscopy time was used. Dosage was 1.5 mGy. IMPRESSION: As above. Reviewed, Interpreted and Dictated by Ismael Monique MD Transcribed by Brianna Truong Authenticated and [facility]
--- NOTE | 2023-02-07 15:45 | P.PNANES_ITS ---
[facility] Anesthesia Record Part I Anesthesia Record I Intake, IV Amount: 700 Hydration: Adequate Estimated blood loss (mL): 2 Urine output (mL): 0 Blood Products used (#): none Blood Pressure: 150/95 SaO2: 92 Pulse Rate: 90 Airway Patency: Patent Respiratory Rate: 12 Temperature: 97.9 F Patient is:: Drowsy, Nasal O2 and Stable Stable to PACU at:: 15:45
--- NOTE | 2023-02-07 15:54 | EXP.OP.NOTE ---
Date of procedure: 02/07/23 Pre-op Diagnosis:: Displaced left fifth metacarpal neck fracture Post-op Diagnosis:: Same Procedure performed:: Closed reduction percutaneous skeletal fixation left fifth metacarpal neck fracture Surgeon:: Bladimir Freitas DO SENIOR MECHANICAL DESIGNER:: Other Anesthesia: GETA and regional Estimated blood loss (mL): 0 Operative findings:: See dictation Operative note:: Patient is identified preoperatively. Left hand marked yes my initials. Transferred operative suite after undergoing a block with anesthesia. Left upper extremity was prepped and draped on the hand table. Final operative timeout performed to identify proper patient procedure and extremity. Everyone involved the case agreed. No counter indication beginning. Did receive preoperative antibiotics. X-ray was brought in with the C arm to identify the fracture. Closed reduction maneuver was performed with flexion at the MCP joint and traction followed by closed reduction maneuver with flexion at the fracture site to reduce the fifth metacarpal neck fracture. Once closed reduction was obtainable two 0.45 inch K wires were selected and placed in a retrograde fashion through the fracture site to stabilize the metacarpal neck fracture. 1 K wire driven intramedullary for stabilization. Pictures taken. No rotational deformity of the finger was noted. K wires were cut outside the skin and padded with Xeroform dressing well-padded ulnar gutter splint placed. Patient waken anesthesia taken recovery stable condition. Condition: stable Disposition: PACU Complications:: None apparent
--- NOTE | 2023-02-07 16:07 | SUR.PHASEI ---
1605-Dr. Freitas @ . No new orders received. Pt sleeping comfortably on left side. Sling in place.
== END 2023-02-07 16:48 | disposition home or self-care (01) ==
PROVIDERS: PCP Family Medicine; Visit Provider Orthopaedic Surgery
PROC: (CPT 26608; principal; 2023-02-07 13:45)
DX: S62.337A Displaced fracture of neck of fifth metacarpal bone, left hand, initial encounter for closed fracture (principal); J44.9 Chronic obstructive pulmonary disease, unspecified; Z79.899 Other long term (current) drug therapy; W06.XXXA Fall from bed, initial encounter; Y92.013 Bedroom of single-family (private) house as the place of occurrence of the external cause
CPT/HCPCS: 26608; 73120; 76000; 96374

== ENCOUNTER → 2023-02-22 11:50 | Outpatient (CLI) | payer MEDICARE, MEDICAID, SELFPAY ==
--- NOTE | 2023-02-22 11:52 | XR_ITS ---
FINAL REPORT CLINICAL HISTORY: lt hand pain COMPARISON: None FINDINGS: LEFT HAND: 3 views of the left hand were obtained. A splint is noted over the ulnar side of the hand and wrist. There are 2 K wires present in the fifth metacarpal, with a fracture of the distal fifth metacarpal and palmar angulation of the distal fragment. Degenerative change is noted in the left hand, most prominently at the first carpometacarpal articulation. IMPRESSION: Fracture of the distal fifth metacarpal and palmar angulation of the distal fragment, with [address]. Reviewed, Interpreted and Dictated by Jong Barroso III, MD Transcribed by Brianna Truong Authenticated and . [facility]
== END ==
PROVIDERS: PCP Family Medicine; Visit Provider Orthopaedic Surgery
DX: S62.307D Unspecified fracture of fifth metacarpal bone, left hand, subsequent encounter for fracture with routine healing (principal)
CPT/HCPCS: 73130

== ENCOUNTER → 2023-03-20 10:19 | Outpatient (CLI) | payer MEDICARE, MEDICAID, SELFPAY ==
--- NOTE | 2023-03-20 10:25 | XR_ITS ---
FINAL REPORT CLINICAL HISTORY: lt hand pain COMPARISON: February 22, 2023 FINDINGS: 3 views of the left hand were obtained. T again seen is a fracture of the distal fifth metacarpal with a K wire. One of the K wires has been removed in the interim. Bony alignment is stable. There is increased callus formation at the fracture site. Mild degenerative changes are present. IMPRESSION: Postoperative change with interval healing of a distal fifth metacarpal fracture. Reviewed, Interpreted and Dictated by Jong Barroso III, MD Transcribed by Mauri Alonso Authenticated and [facility]
== END ==
PROVIDERS: PCP Family Medicine; Visit Provider Orthopaedic Surgery
DX: S62.307D Unspecified fracture of fifth metacarpal bone, left hand, subsequent encounter for fracture with routine healing (principal)
CPT/HCPCS: 73130

== ENCOUNTER 2023-03-20 10:55 | Day surgery (SDC) | payer MEDICARE, MEDICAID, SELFPAY ==
[2023-03-20 10:40] VITALS: BP 115/86; PULSE 100; RESP 16; O2SAT 94; BMI 34.7
[2023-03-20 10:45] VITALS: BP 143/86; PULSE 102; RESP 18; O2SAT 97
[2023-03-20 10:47] VITALS: BP 143/86; PULSE 102; RESP 18; O2SAT 97
[2023-03-20 10:51] VITALS: BP 115/86; PULSE 100; RESP 16; O2SAT 94
--- NOTE | 2023-03-20 11:37 | EXP.PAIN.PRO ---
Procedure Date: 03/20/23 Time: 10:50 Anesthesiologist:: Wero Harmon CRNA Complications:: None Pre-procedure Diagnosis:: Degenerative disc lumbar spine multilevels. Lumbar radiculopathy. Lumbar postlaminectomy syndrome. Post-procedure Diagnosis:: Same. Indications for Procedure:: Patient is a very pleasant 68-year-old male comes our clinic today for intrathecal pain pump interrogation and refill. We will change the patient's concentration of morphine today. Patient currently being managed with morphine sulfate 2 mg/mL at 0.4028 mg/day. We will change the patient to 3 mg/mL of morphine sulfate. Rate will remain the same. Patient doing well with his current settings. He does not report any side effects or complications. Procedure Details:: Details of the procedure explained to the patient. The patient taken to procedure room placed in the seated position. The area over the pump is cleansed using chlorhexidine as a cleansing solution. The pump was interrogated. The pump was accessed with ease using a 22-gauge inch and half needle. 9 mL of solution was withdrawn and discarded appropriate. The pump was then filled with 20 cc of solution containing morphine sulfate 3 mg/mL. Pump rate will remain the same 0.4028 mg/day. Patient tolerated the procedure without difficulty. No complications. Plan and Disposition:: Patient was discharged without incident.
== END 2023-03-20 11:01 | disposition home or self-care (01) ==
LOC: SC.PAINP 10:55
PROVIDERS: PCP Family Medicine; Visit Provider Nurse Anesthetist, Certified Registered
DX: M51.16 Intervertebral disc disorders with radiculopathy, lumbar region (principal); M96.1 Postlaminectomy syndrome, not elsewhere classified; Z97.8 Presence of other specified devices
CPT/HCPCS: 73130; 95991

== ENCOUNTER → 2023-04-24 10:46 | Outpatient (CLI) | payer MEDICARE, MEDICAID, SELFPAY ==
--- NOTE | 2023-04-24 10:52 | XR_ITS ---
FINAL REPORT CLINICAL HISTORY: lt hand pain FINDINGS: AP, oblique, and lateral views of the left hand were obtained. There is no prior exam for comparison. There is a fracture of the distal fifth metacarpal that may be chronic. There is anterior displacement of the distal fracture fragment. The bones are osteopenic. There is multijoint degenerative disease. The soft tissues are normal. IMPRESSION: Displaced distal fifth metacarpal fracture may be chronic. Reviewed, Interpreted and Dictated by Kaycee Deleon MD Transcribed by Mauri Alonso Authenticated and [facility]
== END ==
PROVIDERS: PCP Family Medicine; Visit Provider Orthopaedic Surgery
DX: S62.307D Unspecified fracture of fifth metacarpal bone, left hand, subsequent encounter for fracture with routine healing (principal)
CPT/HCPCS: 73130

== ENCOUNTER 2023-06-15 11:23 | Day surgery (SDC) | payer MEDICARE, MEDICAID, SELFPAY ==
[2023-06-15 11:34] VITALS: BP 155/96; PULSE 110; RESP 16; TEMP 36.6; O2SAT 91; BMI 36.5
[2023-06-15 11:45] VITALS: BP 140/100; PULSE 109; RESP 18; O2SAT 95
[2023-06-15 11:47] VITALS: BP 140/100; PULSE 108; RESP 18; O2SAT 95
--- NOTE | 2023-06-15 11:53 | EXP.PAIN.PRO ---
Procedure Date: 06/15/23 Time: 11:50 Anesthesiologist:: Wero Harmon CRNA Complications:: None Pre-procedure Diagnosis:: Degenerative disc lumbar spine multilevels. Lumbar radiculopathy. Lumbar postlaminectomy syndrome. Post-procedure Diagnosis:: Same. Indications for Procedure:: Patient is a pleasant 68-year-old male comes our clinic today for intrathecal pain pump interrogation refill. He is currently being managed with morphine sulfate 3 mg/mL at a rate of 0.40 to 8 mg/day. He is requesting increase due to low back pain with activity. Will increase him 10% today to. Procedure Details:: Details of the procedure explained to the patient. The patient taken procedure room placed in the sitting position. The area over the pumps cleansed using chlorhexidine's cleansing solution. The pump was interrogated. The pump was accessed with ease using a 22-gauge inch and half needle. 4.5 mL of solution was withdrawn discarded appropriate. The pump was then filled with 20 cc of solution containing morphine sulfate 3 mg/mL at a rate of 0.4427 mg/day Plan and Disposition:: Patient was discharged without incident.
[2023-06-15 12:00] VITALS: BP 145/87; PULSE 108; RESP 18; O2SAT 91
== END 2023-06-15 12:00 | disposition home or self-care (01) ==
PROVIDERS: PCP Family Medicine; Visit Provider Nurse Anesthetist, Certified Registered
DX: M51.16 Intervertebral disc disorders with radiculopathy, lumbar region (principal); M96.1 Postlaminectomy syndrome, not elsewhere classified; Z97.8 Presence of other specified devices; Z45.1 Encounter for adjustment and management of infusion pump
CPT/HCPCS: 95991

== ENCOUNTER 2023-08-28 11:17 | Day surgery (SDC) | payer MEDICARE, MEDICAID, SELFPAY ==
[2023-08-28 11:35] VITALS: BP 166/93; PULSE 89; RESP 18; TEMP 36.8; O2SAT 96; BMI 34.4
--- NOTE | 2023-08-28 11:50 | EXP.PAIN.PRO ---
Procedure Date: 08/28/23 Time: 11:35 Anesthesiologist:: Wero Harmon CRNA Complications:: None Pre-procedure Diagnosis:: Degenerative disc lumbar spine multilevels. Lumbar radiculopathy. Lumbar postlaminectomy syndrome. Post-procedure Diagnosis:: Same. Indications for Procedure:: Patient is a very pleasant 68-year-old male comes our clinic today for intrathecal pain pump interrogation refill. He is currently being managed with morphine sulfate 3 mg/mL at 0.4427 mg/day. He is doing very well his current settings. Is not reporting side effects or complications. He is not requesting any changes in his current intrathecal pain pump management. Procedure Details:: Details of the procedure explained to the patient. The patient taken the procedure room placed in the sitting position to her pump is cleansed using chlorhexidine's cleansing solution. The pump was interrogated. The pump was accessed with ease using 22-gauge inch and half needle. 6.1 mL solution was withdrawn discarded appropriately. The pump was then filled with 20 cc of solution containing morphine sulfate 3 mg/mL. Patient tolerated procedure without difficulty. There are no complications. Plan and Disposition:: Patient was discharged without incident.
[2023-08-28 11:55] VITALS: BP 119/88; BP 154/97; PULSE 103; PULSE 95; RESP 18; O2SAT 97; O2SAT 98
[2023-08-28 12:03] VITALS: BP 154/97; PULSE 103; RESP 18; O2SAT 97
== END 2023-08-28 11:55 | disposition home or self-care (01) ==
PROVIDERS: PCP Family Medicine; Visit Provider Nurse Anesthetist, Certified Registered
DX: M51.16 Intervertebral disc disorders with radiculopathy, lumbar region (principal); M96.1 Postlaminectomy syndrome, not elsewhere classified; Z97.8 Presence of other specified devices; Z45.1 Encounter for adjustment and management of infusion pump
CPT/HCPCS: 95991

== ENCOUNTER 2023-09-28 13:17 | Outpatient (CLI) | payer MEDICARE, MEDICAID, SELFPAY ==
--- NOTE | 2023-09-28 13:19 | CT_ITS ---
FINAL REPORT CLINICAL HISTORY: HX NICOTINE DEPENDENCE CURRENT SMOKER 1.5PPD X50 YEARS COMPARISON: 01/26/2023 FINDINGS: CTDI vol (mGy): 2.90 DLP: 106.[address] images of the chest were obtained using the low-dose protocol for screening. There are several borderline mediastinal lymph nodes and bilateral axillary lymph nodes which are stable from prior exam. No axillary mass or adenopathy is identified. On the lung window images, no pulmonary mass or suspicious nodule is identified. There is mild emphysema and mild scarring. Several chronic left rib fractures are noted. IMPRESSION: No suspicious pulmonary mass or nodule. Lung RADS category 1 . Recommend 12 month followup low-dose CT for further evaluation. Reviewed, Interpreted and Dictated by Jong Barroso III, MD Transcribed by Lori Bennett Authenticated and [facility]
== END 2023-09-28 23:59 ==
LOC: RAD 13:18
PROVIDERS: PCP Family Medicine; Visit Provider Family Medicine
DX: Z87.891 Personal history of nicotine dependence (principal); Z12.2 Encounter for screening for malignant neoplasm of respiratory organs
CPT/HCPCS: 71271

== ENCOUNTER 2023-11-13 11:23 | Day surgery (SDC) | payer MEDICARE, MEDICAID, SELFPAY ==
--- NOTE | 2023-11-13 12:20 | EXP.PAIN.PRO ---
Procedure Date: 11/13/23 Time: 12:00 Anesthesiologist:: Wero Harmon CRNA Complications:: None Pre-procedure Diagnosis:: Degenerative disc lumbar spine multilevels. Lumbar radiculopathy. Lumbar postlaminectomy syndrome. Post-procedure Diagnosis:: Same. Indications for Procedure:: Patient is a very pleasant 68-year-old male comes our clinic today for intrathecal pain pump interrogation refill. He is currently being managed with morphine sulfate 3 mg/mL. His rate is 0.4427 mg/day. He is not reporting side effects or complications. He is not requesting changes in his intrathecal pain pump management. He rates his pain today 4/10. Procedure Details:: Details of the procedure explained to the patient. Patient taken to procedure room placed in sitting position. The area of the pump is cleansed using chlorhexidine's cleansing solution. The pump was interrogated. The pump was accessed with ease using a 22-gauge inch and half needle. 6 mL of solution was withdrawn discarded appropriate. The pump was then filled 20 cc of solution containing morphine sulfate 3 mg/mL. The rate will continue at 0.4427 mg today. Patient tolerated procedure without difficulty. There are no complications. Plan and Disposition:: Patient was discharged without incident.
[2023-11-13 12:30] VITALS: BP 141/87; BP 158/87; PULSE 81; PULSE 85; RESP 18; TEMP 36.3; O2SAT 100; BMI 34.4
[2023-11-13 12:39] VITALS: BP 149/87; PULSE 88; RESP 18; O2SAT 95
[2023-11-13 12:44] VITALS: BP 149/87; PULSE 88; RESP 18; O2SAT 95
[2023-11-13 13:05] LABS: Amphetamine/Metha Screen,Urine Negative ng/ml (<1000)
[2023-11-13 13:06] LABS: Barbiturates Screen,Urine Negative ng/ml (<200); Benzodiazepines Screen,Urine Negative ng/ml (<200)
[2023-11-13 13:07] LABS: Cannabinoid Screen,Urine Positive ng/ml (<50); Cocaine Screen,Urine Negative ng/ml (<300)
[2023-11-13 13:08] LABS: Methadone Screen,Urine Negative ng/ml (<300)
[2023-11-13 13:09] LABS: Opiate Screen,Urine Negative ng/ml (<300); Phencyclidine Screen,Urine Negative ng/ml (<25)
== END 2023-11-13 12:20 | disposition home or self-care (01) ==
PROVIDERS: Anesthesiology; PCP Family Medicine; Visit Provider Nurse Anesthetist, Certified Registered
DX: M51.16 Intervertebral disc disorders with radiculopathy, lumbar region (principal); M96.1 Postlaminectomy syndrome, not elsewhere classified; Z97.8 Presence of other specified devices; Z45.1 Encounter for adjustment and management of infusion pump
CPT/HCPCS: 80307; 80361; 80365; 95991; G0480

== ENCOUNTER 2024-01-29 10:47 | Day surgery (SDC) | payer MEDICARE, MEDICAID, SELFPAY ==
[2024-01-29 10:51] VITALS: BP 144/78; PULSE 101; RESP 16; O2SAT 96; BMI 34.9
--- NOTE | 2024-01-29 11:28 | EXP.PAIN.PRO ---
Procedure Date: 01/29/24 Time: 11:15 Anesthesiologist:: Wero Harmon CRNA Complications:: None Pre-procedure Diagnosis:: Degenerative disc lumbar spine multilevels. Lumbar radiculopathy. Lumbar postlaminectomy syndrome. Post-procedure Diagnosis:: Same. Indications for Procedure:: Patient is a pleasant 69-year-old male who comes our clinic today for intrathecal pain pump interrogation and refill. Patient is reporting low back pain as well as bilateral hip and leg radicular symptoms with increased activity over the last 2 weeks. He rates his pain 7/10. Patient is currently being managed with morphine sulfate 3 mg/mL at a rate of 0.4427 mg/day. I recommend 20% increase. He agrees. Procedure Details:: Details of the procedure explained to the patient. The patient taken procedure room patient sitting position. The area of the pump was cleansed using chlorhexidine as a cleansing solution. The pump was interrogated. The pump was accessed with ease using a 22-gauge inch and half needle. 5 mL of solution was withdrawn discarded appropriate. The pump was then filled with 20 cc of solution containing morphine sulfate 3 mg/mL. The rate will be increased by 20%. The new intrathecal pain pump rate will be 0.5316 mg/day. Patient tolerated procedure without difficulty. There are no complications. Plan and Disposition:: Patient was discharged without incident.
[2024-01-29 11:30] VITALS: BP 131/83; PULSE 89; RESP 16; O2SAT 96
[2024-01-29 12:51] VITALS: BP 113/88; PULSE 96; RESP 18; O2SAT 96
== END 2024-01-29 11:30 | disposition home or self-care (01) ==
PROVIDERS: PCP Family Medicine; Visit Provider Nurse Anesthetist, Certified Registered
DX: M96.1 Postlaminectomy syndrome, not elsewhere classified; M51.36 Other intervertebral disc degeneration, lumbar region
CPT/HCPCS: 95991

== ENCOUNTER 2024-04-08 11:08 | Day surgery (SDC) | payer MEDICARE, MEDICAID, SELFPAY ==
[2024-04-08 11:51] VITALS: BP 137/84; PULSE 95; RESP 16; O2SAT 92; BMI 33.0
[2024-04-08 12:09] VITALS: BP 125/80; PULSE 105; RESP 18; O2SAT 97
[2024-04-08 12:10] VITALS: BP 125/80; PULSE 105; RESP 18; O2SAT 97
--- NOTE | 2024-04-08 12:22 | P.PCN_ITS ---
Procedure Date: 04/08/24 Time: 11:45 Anesthesiologist:: Wero Harmon CRNA Complications:: None Pre-procedure Diagnosis:: Degenerative disc lumbar spine multilevels. Lumbar radiculopathy. Lumbar postlaminectomy syndrome. Post-procedure Diagnosis:: Same. Indications for Procedure:: Patient is a pleasant 69-year-old male who comes our clinic today for intrathecal pain pump interrogation and refill. Patient is currently being managed with morphine sulfate 3 mg/mL at a rate of 0.5316 mg/day. He is doing very well with his current settings. He is not requesting any changes. He does not report any side effects or complications. He rates his pain 3/10. Patient is awake alert [place] x 3. In no acute distress. Flexion-extension lumbar spine somewhat guarded secondary to pain. Deep tendon reflexes upper and lower extremities normal. Motor strength upper and lower extremities normal. There is no gross sensory deficit. Gait is normal. Procedure Details:: Details of the procedure explained to the patient. The patient taken procedure room placed in the sitting position. They are the pump was cleansed using chlorhexidine as a cleansing solution. The pump was interrogated. The pump was accessed with ease using a 22-gauge inch and a half needle. 5 mL of solution was withdrawn discarded appropriate. The pump was then filled with 20 cc of solution containing morphine sulfate 3 mg/mL. Patient tolerated the procedure w ithout difficulty. There are no complications. Plan and Disposition:: Patient was discharged without incident.
[2024-04-08 12:23] VITALS: BP 133/76; PULSE 94; RESP 16; O2SAT 99
== END 2024-04-08 12:23 | disposition home or self-care (01) ==
PROVIDERS: PCP Family Medicine; Visit Provider Nurse Anesthetist, Certified Registered
DX: M51.16 Intervertebral disc disorders with radiculopathy, lumbar region (principal); M96.1 Postlaminectomy syndrome, not elsewhere classified
CPT/HCPCS: 95991

== ENCOUNTER 2024-06-17 10:56 | Day surgery (SDC) | payer MEDICARE, MEDICAID, SELFPAY ==
[2024-06-17 11:49] VITALS: BP 131/82; PULSE 108; RESP 16; TEMP 36.6; O2SAT 93; BMI 32.6
[2024-06-17 12:22] VITALS: BP 132/78; PULSE 74; RESP 16; TEMP 36.2; O2SAT 98
--- NOTE | 2024-06-17 12:43 | EXP.PAIN.PRO ---
Procedure Date: 06/17/24 Time: 12:20 Anesthesiologist:: Wero Harmon CRNA Complications:: None Pre-procedure Diagnosis:: Degenerative disc lumbar spine multilevels. Lumbar radiculopathy. Lumbar postlaminectomy syndrome. Post-procedure Diagnosis:: Same Indications for Procedure:: Patient is a very pleasant 69-year-old male that comes our clinic today for intrathecal pain pump interrogation and refill. Patient currently being managed with morphine sulfate 3 mg/mL at a rate of 0.5316 mg/day. He is doing very well with his current settings. He is not reporting any side effects or complications. He is not requesting any changes. Procedure Details:: Details of the procedure explained to the patient. The patient taken procedure and placed in the sitting position. They over the pumps cleansed using chlorhexidine as a cleansing solution. The pump was interrogated. The pump was accessed with ease using a 22-gauge inch and half needle. 5 mL solution was withdrawn discarded appropriate. The pump was then filled with 20 cc of solution containing morphine sulfate 3 mg/mL. The pump rate will continue at 0.5316 mg/day. Patient tolerated procedure without difficulty. No complications. Plan and Disposition:: Patient was discharged without incident.
[2024-06-17 13:02] VITALS: BP 115/81; PULSE 106; RESP 18; O2SAT 92
[2024-06-17 13:04] VITALS: BP 115/81; PULSE 106; RESP 18; O2SAT 92
== END 2024-06-17 12:22 | disposition home or self-care (01) ==
LOC: SC.PAINP 10:58 → SC.PAIN 12:20
PROVIDERS: PCP Family Medicine; Visit Provider Nurse Anesthetist, Certified Registered
DX: M51.16 Intervertebral disc disorders with radiculopathy, lumbar region (principal); M96.1 Postlaminectomy syndrome, not elsewhere classified
CPT/HCPCS: 95991

== ENCOUNTER 2024-08-22 09:49 | Day surgery (SDC) | payer MEDICARE, MEDICAID, SELFPAY ==
--- NOTE | 2024-08-22 09:55 | EXP.PAIN.PRO ---
Procedure Date: 08/22/24 Time: 10:29 Anesthesiologist:: Queenie Freitas APRN Complications:: None Pre-procedure Diagnosis:: Degenerative disc disease of lumbar spine with lumbar radiculopathy symptoms Post-procedure Diagnosis:: same Indications for Procedure:: Patient is a pleasant 69-year-old male who presents today for intrathecal refill and reprogram. Today he rates his pain a 4 out of 10. He denies any new trauma or injury. He does state in the last month he has felt like he is had more joint pains especially in his hips and knees. Patient does think that part of it is related to the weather. Patient is currently managed with morphine 3 mg/mL with a daily dose of 0.5316 mg/day. He denies any side effects from this medication.Jesus has been reviewed and is appropriate. Physical Exam: General: Alert and oriented x3, no acute distress, pleasant and cooperative Lungs: Respirations even and unlabored, symmetrical chest expansion Eyes: PERRL Musculoskeletal: Flexion and extension of lumbar [spine] somewhat guarded secondary to pain, [antalgic gait noted] Neurological: Speech clear, no gross sensory deficit Procedure Details:: Informed consent was obtained and the risk and benefits of the procedure were explained to the patient. The patient had noninvasive monitoring placed including noninvasive blood pressure cuff and pulse oximeter. Patient's pump was interrogated. The area over the pump was cleansed with chlorhexidine as a cleansing solution. In sterile fashion the pump was accessed with a 22-gauge needle. Approximately 7 mls of the pump solution was removed and discarded appropriately. The pump was then refilled with 20 mL's of morphine 3 mg per. The needle was withdrawn and a bandage was placed over the puncture site. The infusion rate was reprogrammed and increased 10% morphine 0.5849 mg/day. The patient tolerated well with no complication. Plan and Disposition:: Patient tolerated the procedure well with no complications and was discharged neurologically intact. I will send in a new order of the compounded cream and put additional 5 refills on them. Patient will return to clinic on or before their next intrathecal refill date. We will see the patient back in the clinic at the next intrathecal refill. Patient has been instructed to contact the clinic with any concerns before the next appointment. Dr. Peguero has reviewed this note and agrees with this plan of care. This note was dictated using voice recognition software and make contain errors or omissions. -- It Is medically necessary for this patient to continue to have their intrathecal pump refilled at regular intervals. This patient had an intrathecal pain pump implanted after meeting criteria of chronic intractable pain for greater than 3 months and failing conservative treatments. Patient has committed and been compliant to the treatment plan and all planned follow up care. Since implantation of the intrathecal pain pump, the patient has had decreased pain and been more functional. Oral medications have been reduced including intake of oral opioids. Patient continues to do well with intrathecal therapy with decrease in pain symptoms and increase in functional status. Stopping intrathecal medications can lead to life threatening withdrawal, seizures, cardiac arrest, severe pain, and possible . Pumps that are not refilled at regular intervals can be damages and cause and need for replacement. We continually titrate dose and concentration to optimize pain relief and function. We are limited in concentration for certain drugs to safely deliver medications through the pump and stay within the recommendations from the Polyanalgesic Consensus Committee Guidelines. Depending on dose and concentration these pumps may need to be refilled sooner than 3 months as we titrate. A UDS is needed to verify patient's compliance with our office pain contract. This is ordered based off specific treatments related to chronic pain with the potential to abuse certain medications.
[2024-08-22 10:01] VITALS: BP 122/83; PULSE 105; RESP 16; O2SAT 92; BMI 33.4
[2024-08-22 10:17] VITALS: BP 136/76; PULSE 105; RESP 18; O2SAT 92
[2024-08-22 10:18] VITALS: BP 136/76; PULSE 109; RESP 18; O2SAT 92
[2024-08-22 10:31] VITALS: BP 147/92; PULSE 106; RESP 16; O2SAT 93
== END 2024-08-22 10:31 | disposition home or self-care (01) ==
PROVIDERS: PCP Family Medicine; Visit Provider Nurse Practitioner Family
DX: M51.16 Intervertebral disc disorders with radiculopathy, lumbar region (principal)
CPT/HCPCS: 62370

== ENCOUNTER 2024-10-31 10:46 | Day surgery (SDC) | payer MEDICARE, MEDICAID, SELFPAY ==
[2024-10-31 11:00] VITALS: BP 139/85; PULSE 85; RESP 16; O2SAT 90; BMI 33.0
--- NOTE | 2024-10-31 11:04 | EXP.HP ---
History of Present Illness *Admission Date: 10/31/24 *Reason for visit:: Intrathecal refill; DDD *History of present illness: Degenerative disc disease [facility] Disclaimer: The information contained in this section may have been updated after the patient was seen, as this information can be updated by other users. Medical History COPD (chronic obstructive pulmonary disease) Degenerative disc disease Depression Surgical History Hx of decompressive lumbar laminectomy Family History Other Family history of degenerative disc disease Social History Smoking Status: Current every day smoker tobacco type: cigarettes packs per day: 1 second hand exposure: Yes alcohol intake: never substance use type: marijuana and other current occupational status: other Travel in the last 8 weeks?: None household members: none housing: house current occupational exposures/hazards: No caffeine: Yes Have you lived/traveled outside [place] in past 30 days?: No Contact w/someone who lives/traveled outside [place] past 30 days?: No Exposure to someone with infectious disease in past 14 days?: No Do you have a fever (greater than 100.4 F or 38 C)?: No Have you tested positive for COVID-19?: No Exposed to someone with COVID-19 in past 14 days?: No Do you have a sore throat?: No Do you have a cough?: No Do you have any weakness?: No Do you have any diarrhea?: No Are you experiencing any unusual bleeding?: No Do you have any muscle aches/pain?: No Do you have any abdominal pain?: No Are you experiencing loss of taste or smell?: No Other Medical History Have you received the Flu Vaccine for this season: No Have you received the Pneumonia Vaccine: No Review of Systems Review of Systems Review of systems:: pertinent systems reviewed and negative unless documented below Review of systems (narrative): Review of Systems: General: No recent weight changes, no fever, no sleep disturbances Respiratory: No cough, no shortness of air, no recurring pulmonary infections Cardiovascular/peripheral vascular: No chest pain, no palpitations, no edema, no shortness of breath Gastrointestinal: No new onset incontinence, normal bowel movements reported Genitourinary: No new onset incontinence Musculoskeletal: Chronic back Psychiatric: [Normal mood/affect] Neurological: [Denies weakness in extremities], [denies balance issues] Meds Home Medications and Allergies Home Medications ?Medication ?Instructions ?Recorded ?Confirmed ?Type albuterol sulfate 90 mcg/actuation 1 - 2 puffs inhalation Q4-6H PRN 05/14/19 10/31/24 History aerosol inhaler Shortness Of Breath Or Wheezing duloxetine 60 mg capsule,delayed See Rx Instructions .Route 11/21/22 10/31/24 History release .COMPLEX . cariprazine 1.5 mg capsule 1.5 mg PO DAILY mood disorder 02/07/23 10/31/24 History (Andreas) New Prescriptions to Start Prescriptions: Allergies Allergy/AdvReac Type Severity Reaction Status Date / Time No Known Allergies Allergy Verified 01/29/24 10:53 Exam Data for Last 24 hours Vital signs and Labs for Last 24 Hours: Pulse Resp BP Pulse Ox O2 Del Method 85 16 139/85 90 L Room Air 10/31/24 11:00 10/31/24 11:00 10/31/24 11:00 10/31/24 11:00 10/31/24 11:00 I & O for Last 24 hours: Intake & Output 10/28/24 10/29/24 10/30/24 10/31/24 23:59 23:59 23:59 23:59 Weight 217 lb Constitutional Constitutional: no acute distress *Routine HEENT Exam Head: Present normocephalic and atraumatic Eye: Present PERRL ENT: Present mucous membranes moist *Routine Neck Exam Neck: Present supple *Routine Respiratory Exam Respiratory: Present CTA bilaterally *Routine Cardiovascular Exam Cardiovascular: Present RRR *Routine Abdominal Exam Abdominal: Present soft *Routine Rectal Exam Rectal:: deferred *Routine Genitalia Exam Genitalia:: normal male Routine Back/Spine/Pelvis Exam Back/Spine: Present pain with flexion *Routine Skin Exam Skin: Present intact and warm *Routine Neurological Exam Neurological: Present alert and oriented X3 Routine Psychiatric Exam Psychiatric: Present normal affect and normal thought process Assessment and Plan *Assessment and plan (1) Lumbar radiculopathy: Status: Chronic Category: Medical Code(s): M54.16 - Radiculopathy, lumbar region (2) Degenerative disc disease, lumbar: Status: Chronic Category: Medical Code(s): M51.369 - Other intervertebral disc degeneration, lumbar region without mention of lumbar back pain or lower extremity pain Plan Patient has been instructed to contact the clinic with any concerns before the next appointment. Dr. Peguero has reviewed this note and agrees with this plan of care. This note was dictated using voice recognition software and make contain errors or omissions. All injections are used with Lidocaine, Bupivacaine and dexamethasone. Occasionally urine drug screen is needed to verify patient's compliance with our office pain contract. This is ordered based off specific treatments related to chronic pain with the potential to abuse certain medications.
--- NOTE | 2024-10-31 11:05 | EXP.PAIN.PRO ---
Procedure Date: 10/31/24 Time: 11:27 Anesthesiologist:: Queenie Freitas APRN Complications:: None Pre-procedure Diagnosis:: Degenerative disc disease of lumbar spine, chronic pain syndrome Post-procedure Diagnosis:: Same Indications for Procedure:: Patient is a pleasant 69-year-old male who presents today for intrathecal refill and reprogram. Today he rates his pain a 2 out of 10. He denies any new trauma or injury. Patient is currently managed. Morphine 3 mg/mL with a daily dose of 0.5849 mg/day. He denies any side effects. Patient does make mention today that he has been having some left hand cramping that is random but does seem worse with increased activity. He denies any other changes. His Jesus has been reviewed and is appropriate. Physical Exam: General: Alert and oriented x3, no acute distress, pleasant and cooperative Lungs: Respirations even and unlabored, symmetrical chest expansion Eyes: PERRL Musculoskeletal: Flexion and extension of lumbar [spine] somewhat guarded secondary to pain, [antalgic gait noted] Neurological: Speech clear, no gross sensory deficit Procedure Details:: Informed consent was obtained and the risk and benefits of the procedure were explained to the patient. The patient had noninvasive monitoring placed including noninvasive blood pressure cuff and pulse oximeter. Patient's pump was interrogated. The area over the pump was cleansed with chlorhexidine as a cleansing solution. In sterile fashion the pump was accessed with a 22-gauge needle. Approximately 5 mls of the pump solution was removed and discarded appropriately. The pump was then refilled with 20 mL's of morphine 3 mg/mL. The needle was withdrawn and a bandage was placed over the puncture site. The infusion rate was reprogrammed and continued at its current dosage. The patient tolerated well with no complication. Plan and Disposition:: Patient tolerated the procedure well with no complications and was discharged neurologically intact. Patient will return to clinic on or before their next intrathecal refill date. We will see the patient back in the clinic at the next intrathecal refill. Patient has been instructed to contact the clinic with any concerns before the next appointment. Dr. Peguero has reviewed this note and agrees with this plan of care. This note was dictated using voice recognition software and make contain errors or omissions. -- It Is medically necessary for this patient to continue to have their intrathecal pump refilled at regular intervals. This patient had an intrathecal pain pump implanted after meeting criteria of chronic intractable pain for greater than 3 months and failing conservative treatments. Patient has committed and been compliant to the treatment plan and all planned follow up care. Since implantation of the intrathecal pain pump, the patient has had decreased pain and been more functional. Oral medications have been reduced including intake of oral opioids. Patient continues to do well with intrathecal therapy with decrease in pain symptoms and increase in functional status. Stopping intrathecal medications can lead to life threatening withdrawal, seizures, cardiac arrest, severe pain, and possible . Pumps that are not refilled at regular intervals can be damages and cause and need for replacement. We continually titrate dose and concentration to optimize pain relief and function. We are limited in concentration for certain drugs to safely deliver medications through the pump and stay within the recommendations from the Polyanalgesic Consensus Committee Guidelines. Depending on dose and concentration these pumps may need to be refilled sooner than 3 months as we titrate. A UDS is needed to verify patient's compliance with our office pain contract. This is ordered based off specific treatments related to chronic pain with the potential to abuse certain medications.
[2024-10-31 11:19] VITALS: BP 128/89; PULSE 88; RESP 18; O2SAT 92
[2024-10-31 11:36] VITALS: BP 115/85; PULSE 82; RESP 16; O2SAT 91
== END 2024-10-31 11:36 | disposition home or self-care (01) ==
PROVIDERS: PCP Family Medicine; Visit Provider Nurse Practitioner Family
DX: M51.369 Other intervertebral disc degeneration, lumbar region without mention of lumbar back pain or lower extremity pain (principal); G89.4 Chronic pain syndrome
CPT/HCPCS: 62370

== ENCOUNTER 2024-12-26 10:00 | Day surgery (SDC) | payer MEDICARE, MEDICAID, SELFPAY ==
--- NOTE | 2024-12-26 10:07 | EXP.PM.HP ---
History of Present Illness *Admission Date: 12/26/24 *Reason for visit:: Intrathecal refill; DDD *History of present illness: Same [facility] Disclaimer: The information contained in this section may have been updated after the patient was seen, as this information can be updated by other users. Medical History COPD (chronic obstructive pulmonary disease) Degenerative disc disease Depression Surgical History Hx of decompressive lumbar laminectomy Family History Other Family history of degenerative disc disease Social History Smoking Status: Current every day smoker tobacco type: cigarettes packs per day: 1 second hand exposure: Yes alcohol intake: never substance use type: marijuana and other current occupational status: other Travel in the last 8 weeks?: None household members: none housing: house current occupational exposures/hazards: No caffeine: Yes Have you lived/traveled outside [place] in past 30 days?: No Contact w/someone who lives/traveled outside [place] past 30 days?: No Exposure to someone with infectious disease in past 14 days?: No Do you have a fever (greater than 100.4 F or 38 C)?: No Have you tested positive for COVID-19?: No Exposed to someone with COVID-19 in past 14 days?: No Do you have a sore throat?: No Do you have a cough?: No Do you have any weakness?: No Do you have any diarrhea?: No Are you experiencing any unusual bleeding?: No Do you have any muscle aches/pain?: No Do you have any abdominal pain?: No Are you experiencing loss of taste or smell?: No Other Medical History Have you received the Flu Vaccine for this season: No Have you received the Pneumonia Vaccine: No Review of Systems Review of Systems Review of systems:: pertinent systems reviewed and negative unless documented below Review of systems (narrative): Review of Systems: General: No recent weight changes, no fever, no sleep disturbances Respiratory: No cough, no shortness of air, no recurring pulmonary infections Cardiovascular/peripheral vascular: No chest pain, no palpitations, no edema, no shortness of breath Gastrointestinal: No new onset incontinence, normal bowel movements reported Genitourinary: No new onset incontinence Musculoskeletal: Chronic back pain Psychiatric: [Normal mood/affect] Neurological: [Denies weakness in extremities], [denies balance issues] Meds Home Medications and Allergies Home Medications ?Medication ?Instructions ?Recorded ?Confirmed ?Type albuterol sulfate 90 mcg/actuation 1 - 2 puffs inhalation Q4-6H PRN 05/14/19 10/31/24 History aerosol inhaler Shortness Of Breath Or Wheezing duloxetine 60 mg capsule,delayed See Rx Instructions .Route 11/21/22 10/31/24 History release .COMPLEX . cariprazine 1.5 mg capsule 1.5 mg PO DAILY mood disorder 02/07/23 10/31/24 History (Vraylar) New Prescriptions to Start Prescriptions: Allergies Allergy/AdvReac Type Severity Reaction Status Date / Time No Known Allergies Allergy Verified 01/29/24 10:53 Exam Constitutional Constitutional: no acute distress *Routine HEENT Exam Head: Present normocephalic and atraumatic Eye: Present PERRL ENT: Present mucous membranes moist *Routine Neck Exam Neck: Present supple *Routine Respiratory Exam Respiratory: Present CTA bilaterally *Routine Cardiovascular Exam Cardiovascular: Present RRR *Routine Abdominal Exam Abdominal: Present soft *Routine Rectal Exam Rectal:: deferred *Routine Genitalia Exam Genitalia:: deferred Routine Back/Spine/Pelvis Exam Back/Spine: Present pain with flexion *Routine Skin Exam Skin: Present intact *Routine Neurological Exam Neurological: Present alert and oriented X3 Routine Psychiatric Exam Psychiatric: Present normal affect and normal thought process Assessment and Plan *Assessment and plan (1) Postlaminectomy syndrome: Status: Chronic Category: Medical Code(s): M96.1 - Postlaminectomy syndrome, not elsewhere classified (2) Lumbar radiculopathy: Status: Chronic Category: Medical Code(s): M54.16 - Radiculopathy, lumbar region (3) Degenerative disc disease, lumbar: Status: Chronic Category: Medical Code(s): M51.369 - Other intervertebral disc degeneration, lumbar region without mention of lumbar back pain or lower extremity pain Plan Patient has been instructed to contact the clinic with any concerns before the next appointment. Dr. Peguero has reviewed this note and agrees with this plan of care. This note was dictated using voice recognition software and make contain errors or omissions. All injections are used with Lidocaine, Bupivacaine and dexamethasone. Occasionally urine drug screen is needed to verify patient's compliance with our office pain contract. This is ordered based off specific treatments related to chronic pain with the potential to abuse certain medications.
--- NOTE | 2024-12-26 10:09 | EXP.PAIN.PRO ---
Procedure Date: 12/26/24 Time: 10:17 Anesthesiologist:: Queenie Freitas APRN Complications:: None Pre-procedure Diagnosis:: Degenerative disc disease of lumbar spine with lumbar radiculopathy symptoms, lumbar postlaminectomy syndrome Post-procedure Diagnosis:: Same Indications for Procedure:: Patient is a pleasant 69-year-old male who presents today for intrathecal refill and reprogram. Today he rates his pain 2 out of 10. He denies any new falls or injuries. He does state that he is doing well with his current medication and denies any side effects. He is currently managed with morphine 3 mg/mL with a daily dose of 0.5849 mg/day. His Jesus has been reviewed and is appropriate. Physical Exam: General: Alert and oriented x3, no acute distress, pleasant and cooperative Lungs: Respirations even and unlabored, symmetrical chest expansion Eyes: PERRL Musculoskeletal: Flexion and extension of lumbar [spine] somewhat guarded secondary to pain, [antalgic gait noted] Neurological: Speech clear, no gross sensory deficit Procedure Details:: Informed consent was obtained and the risk and benefits of the procedure were explained to the patient. The patient had noninvasive monitoring placed including noninvasive blood pressure cuff and pulse oximeter. Patient's pump was interrogated. The area over the pump was cleansed with chlorhexidine as a cleansing solution. In sterile fashion the pump was accessed with a 22-gauge needle. Approximately 7.8 mls of the pump solution was removed and discarded appropriately. The pump was then refilled with 20 mL's of morphine 3 mg/mL. The needle was withdrawn and a bandage was placed over the puncture site. The infusion rate was reprogrammed and continued at its current dosage. The patient tolerated well with no complication. Plan and Disposition:: Patient tolerated the procedure well with no complications and was discharged neurologically intact. Patient will return to clinic on or before their next intrathecal refill date. We will see the patient back in the clinic at the next intrathecal refill. Patient has been instructed to contact the clinic with any concerns before the next appointment. Dr. Peguero has reviewed this note and agrees with this plan of care. This note was dictated using voice recognition software and make contain errors or omissions. -- It Is medically necessary for this patient to continue to have their intrathecal pump refilled at regular intervals. This patient had an intrathecal pain pump implanted after meeting criteria of chronic intractable pain for greater than 3 months and failing conservative treatments. Patient has committed and been compliant to the treatment plan and all planned follow up care. Since implantation of the intrathecal pain pump, the patient has had decreased pain and been more functional. Oral medications have been reduced including intake of oral opioids. Patient continues to do well with intrathecal therapy with decrease in pain symptoms and increase in functional status. Stopping intrathecal medications can lead to life threatening withdrawal, seizures, cardiac arrest, severe pain, and possible . Pumps that are not refilled at regular intervals can be damages and cause and need for replacement. We continually titrate dose and concentration to optimize pain relief and function. We are limited in concentration for certain drugs to safely deliver medications through the pump and stay within the recommendations from the Polyanalges[employer] Consensus Committee Guidelines. Depending on dose and concentration these pumps may need to be refilled sooner than 3 months as we titrate. A UDS is needed to verify patient's compliance with our office pain contract. This is ordered based off specific treatments related to chronic pain with the potential to abuse certain medications.
[2024-12-26 10:12] VITALS: BP 118/75; PULSE 78; RESP 18; O2SAT 100; BMI 33.0
[2024-12-26 10:13] VITALS: BP 107/67; PULSE 79; RESP 18; O2SAT 97
[2024-12-26 10:26] VITALS: BP 106/70; PULSE 71; RESP 18; O2SAT 93
== END 2024-12-26 10:26 | disposition home or self-care (01) ==
PROVIDERS: PCP Family Medicine; Visit Provider Nurse Practitioner Family
DX: Z45.1 Encounter for adjustment and management of infusion pump (principal); M96.1 Postlaminectomy syndrome, not elsewhere classified; M51.16 Intervertebral disc disorders with radiculopathy, lumbar region; J44.9 Chronic obstructive pulmonary disease, unspecified; F32.A Depression, unspecified; F17.210 Nicotine dependence, cigarettes, uncomplicated; Z79.899 Other long term (current) drug therapy
CPT/HCPCS: 62370